=== PATIENT | male | born 1950 | race Caucasian/White ===

== ENCOUNTER 2018-07-13 19:42 | Inpatient (IN) | payer MEDICARE, MEDICAID, OTHER ==
[~2018-07-13] VITALS: Ht 175.3 cm; Wt 130.2 kg
[~2018-07-13 19:42] MED LIST: ALFUZOSIN PO; ASCO500C6 PO; CARV25TA47 PO; DIPH1TAB PO; ECON15CR11 TP; ETOMIDATE 2MG/ML 10ML VIAL IV ONE; FURO40TA5 PO; HYDR-4005 PO; METF500T PO; PIOG15TA6 PO; POTA20TA12 PO; SIMV5TAB53 PO; SUCCINYLCHOLINE CHLORIDE 200MG/10ML VIAL IV ONE; TRAZ-213 PO; VALS320T2 PO; VENL-180 PO; VITAMIN E PO
[2018-07-13] MEDS ORDERED: NITROGLYCERIN OINT 1GM/INCH UDPKT TD ONE (20:15)
[2018-07-13] MEDS ORDERED: ENALAPRIL 1.25MG/ML VIAL 1ML IV ONE (20:15)
[2018-07-13] MEDS ORDERED: ENALAPRIL 2.5MG/2ML VIAL 2ML IV NR (20:21)
[2018-07-13] MEDS ORDERED: ONDANSETRON HCL 4MG/2ML INJ IV ONE (20:30)
[2018-07-13 21:11] LABS: HEMATOCRIT. 31.9 % (42.0-52.0); HEMOGLOBIN. 10.3 g/dL (14.0-18.0); MEAN CORPUSCULAR HEMOGLOBIN 27.3 pg (28.0-32.0); MEAN CORPUSCULAR VOLUME 84.5 fL (80.0-94.0); MEAN PLATELET VOLUME 7.5 fl (7.4-10.4); PLATELET 529 x1000/uL (130-400); RED BLOOD CELL COUNT 3.77 mill/uL (4.7-6.1); RED CELL DISTRIBUTION WIDTH 14.1 % (11.6-14.6)
[2018-07-13 21:19] LABS: CHLORIDE 102 mEq/L (98-107)
[2018-07-13 21:20] LABS: INR 1.1; PROTHROMBIN TIME 11.3 sec (9.1-11.1)
[2018-07-13 21:33] LABS: PLATELET ESTIMATE INCREASED
[2018-07-13 22:46] LABS: BG BASE EXCESS -1.1 mmol/L (-2.0-2.0); BG CARBOXYHEMOGLOBIN 0.4 % (0.5-1.5); BG DEOXYHEMOGLOBIN 5.4 % (0.0-5.0); BG FRACTION INSPIRED OXYGEN 100; BG METHEMOGLOBIN 0.2 % (0.0-1.5); BG OXYGEN SATURATION 94.6 % (92.0-98.5); BG PH 7.293 (7.350-7.450); BG PO2 81.1 mmHg (75.0-100.0); BG SAMPLE SITE RIGHT RADIAL; BG TOTAL HEMOGLOBIN 11.1 g/dL (12.0-18.0); BG VENT MODE MASK - NRB
[2018-07-13] MEDS ORDERED: PIPERACILLIN/TAZ 3.375G PREMIX 50 ML IV ONE (23:00)
[2018-07-13] MEDS ORDERED: LEVOFLOXACIN 750MG PREMIX 150 ML IV ONE (23:00)
[2018-07-13] MEDS ORDERED: SUCCINYLCHOLINE CHLORIDE 200MG/10ML VIAL IV ONE (23:30)
[2018-07-13] MEDS ORDERED: ETOMIDATE 2MG/ML 10ML VIAL IV ONE (23:30)
[2018-07-13] MEDS ORDERED: PROPOFOL 10MG/ML 100ML 100 ML IV ONE ×2 (23:30→23:36)
[2018-07-13] MEDS ORDERED: SODIUM CHLORIDE 0.9% 1,000 ML IV ONE (23:48)
[2018-07-14] VITALS (91 sets, daily range): BP systolic 79–143; BP diastolic 40–80
[2018-07-14 00:17] LABS: BG BASE EXCESS -2.6 mmol/L (-2.0-2.0); BG CARBOXYHEMOGLOBIN 0.1 % (0.5-1.5); BG DEOXYHEMOGLOBIN 6.4 % (0.0-5.0); BG FRACTION INSPIRED OXYGEN 100; BG HCO3 ACT 24.2 mmol/L (22.0-26.0); BG METHEMOGLOBIN 0.2 % (0.0-1.5); BG OXYGEN SATURATION 93.6 % (92.0-98.5); BG OXYHEMOGLOBIN 93.3 % (94.0-97.0); BG PCO2 51.3 mmHg (35.0-45.0); BG PH 7.291 (7.350-7.450); BG PO2 74.2 mmHg (75.0-100.0); BG SAMPLE SITE RIGHT RADIAL; BG TIDAL VOLUME(mL) 500 mL; BG TOTAL HEMOGLOBIN 10.2 g/dL (12.0-18.0); BG VENT MODE VENT - A/C; BG VENT RATE 18 set
[2018-07-14] MEDS ORDERED: LORAZEPAM 2MG/ML CPJ ONE (00:20)
[2018-07-14] MEDS ORDERED: NOREPINEPHRINE 4 MG in DEXT 5% WATER 250 ML IV STA (00:49)
[2018-07-14] MEDS ORDERED: FENTANYL CITRATE/PF 500 MCG in SODIUM CHLORIDE 0.9% 40 ML IV STA (00:50)
[2018-07-14] MEDS ORDERED: MIDAZOLAM HCL 50 MG in DEXTROSE 5% WATER 40 ML IV ONE (01:00)
[2018-07-14] MEDS ORDERED: NOREPINEPHRINE 4 MG in DEXT 5% WATER 250 ML IV SCH (01:00)
[2018-07-14] MEDS ORDERED: FENTANYL CITRATE/PF 50MCG/ML 2ML VIAL IV ONE (01:00)
[2018-07-14] MEDS ORDERED: LORAZEPAM 2MG/ML CPJ IV ONE (01:30)
[2018-07-14] MEDS ORDERED: SODIUM CHLORIDE 0.9% 1,000 ML IV ONE (01:42)
[2018-07-14] MEDS ORDERED: DEXTROSE 50% WATER 50ML SYRINGE IV PRN (03:00)
[2018-07-14] MEDS ORDERED: CLONIDINE 0.1MG TABLET PO PRN (03:00)
[2018-07-14] MEDS ORDERED: IPRATROPIUM/ALBUTEROL 0.5-3(2.5)MG/3ML NEB HHN PRN (03:00)
[2018-07-14] MEDS ORDERED: DOCUSATE SODIUM 100MG CAPSULE PO PRN (03:00)
[2018-07-14] MEDS ORDERED: PHENYLEPHRINE 20 MG in DEXT 5% WATER 250 ML IV PRN (03:00)
[2018-07-14] MEDS ORDERED: ENOXAPARIN 40MG/0.4ML SYR SUBCUT SCH (03:00)
[2018-07-14] MEDS: IPRATROPIUM/ALBUTEROL 0.5-3(2.5)MG/3ML NEB HHN SCH ×5 (03:44→20:15)
[2018-07-14] MEDS: PROPOFOL 10MG/ML 100ML 100 ML IV PRN ×4 (03:52→21:06)
[2018-07-14] MEDS: DEXT 5%/0.45% NACL 1000ML 1,000 ML IV SCH (03:52)
[2018-07-14] MEDS ORDERED: VANCOMYCIN 2,000 MG in DEXT 5% WATER 500 ML IV SCH (04:00)
[2018-07-14] MEDS: NOREPINEPHRINE 8 MG in DEXT 5% WATER 242 ML IV PRN (05:23)
[2018-07-14] MEDS ORDERED: PIPERACILLIN/TAZ 3.375G PREMIX 50 ML IV SCH (06:00)
[2018-07-14 06:04] LABS: HEMATOCRIT. 29.1 % (42.0-52.0); HEMOGLOBIN. 9.4 g/dL (14.0-18.0); MEAN CORPUSCULAR HEMOGLOBIN 27.5 pg (28.0-32.0); MEAN CORPUSCULAR VOLUME 85.3 fL (80.0-94.0); MEAN PLATELET VOLUME 7.2 fl (7.4-10.4); PLATELET 471 x1000/uL (130-400); RED BLOOD CELL COUNT 3.41 mill/uL (4.7-6.1); RED CELL DISTRIBUTION WIDTH 13.9 % (11.6-14.6)
[2018-07-14 06:16] LABS: CHLORIDE 105 mEq/L (98-107)
[2018-07-14] MEDS: BLOOD SUGAR DIAGNOSTIC STRIP TEST SCH ×3 (06:39→17:45)
[2018-07-14] MEDS: INSULIN LISPRO 100 UNITS/ML SUBCUT SCH ×3 (06:41→17:45)
[2018-07-14 08:00] LABS: PLATELET ESTIMATE SLIGHTLY INCREASED
[2018-07-14] MEDS ORDERED: ENOXAPARIN 30MG/0.3ML SYR SUBCUT SCH (09:00)
[2018-07-14] MEDS: ACETAMINOPHEN 325MG TABLET PO PRN ×2 (09:09→17:53)
[2018-07-14 09:27] LABS: BG BASE EXCESS -0.5 mmol/L (-2.0-2.0); BG CARBOXYHEMOGLOBIN 0.2 % (0.5-1.5); BG DEOXYHEMOGLOBIN 4.8 % (0.0-5.0); BG FRACTION INSPIRED OXYGEN 100; BG METHEMOGLOBIN 0.3 % (0.0-1.5); BG OXYGEN SATURATION 95.2 % (92.0-98.5); BG OXYHEMOGLOBIN 94.7 % (94.0-97.0); BG PCO2 32.9 mmHg (35.0-45.0); BG PH 7.462 (7.350-7.450); BG SAMPLE SITE RIGHT RADIAL; BG TIDAL VOLUME(mL) 550 mL; BG TOTAL HEMOGLOBIN 8.9 g/dL (12.0-18.0); BG VENT MODE VENT - A/C; BG VENT RATE 24 set
[2018-07-14] MEDS: PIPERACILLIN/TAZ 3.375G PREMIX 50 ML IV SCH ×2 (14:00→17:53)
[2018-07-14] MEDS ORDERED: HYDROCODONE/APAP 7.5/325MG 1 TAB TABLET PO PRN (18:00)
[2018-07-14] MEDS ORDERED: VANCOMYCIN 1 G PREMIX 200 ML IV SCH (18:00)
[2018-07-15] VITALS (123 sets, daily range): BP systolic 44–143; BP diastolic 20–85
[2018-07-15] MEDS ORDERED: VANCOMYCIN 1250MG in DEXTROSE 5% WATER 250ML IV SCH ×2
[2018-07-15] MEDS: BLOOD SUGAR DIAGNOSTIC STRIP TEST SCH ×5 (00:21→23:28)
[2018-07-15] MEDS: PROPOFOL 10MG/ML 100ML 100 ML IV PRN ×6 (00:21→23:50)
[2018-07-15] MEDS: PIPERACILLIN/TAZ 3.375G PREMIX 50 ML IV SCH ×5 (00:21→23:32)
[2018-07-15] MEDS: DEXT 5%/0.45% NACL 1000ML 1,000 ML IV SCH ×2 (00:22→18:03)
[2018-07-15] MEDS: IPRATROPIUM/ALBUTEROL 0.5-3(2.5)MG/3ML NEB HHN SCH ×6 (00:23→20:07)
[2018-07-15] MEDS: INSULIN LISPRO 100 UNITS/ML SUBCUT SCH ×5 (00:37→23:49)
[2018-07-15 06:09] LABS: HEMATOCRIT. 25.6 % (42.0-52.0); HEMOGLOBIN. 8.5 g/dL (14.0-18.0); MEAN CORPUSCULAR HEMOGLOBIN 27.6 pg (28.0-32.0); MEAN CORPUSCULAR VOLUME 82.8 fL (80.0-94.0); PLATELET 445 x1000/uL (130-400); RED BLOOD CELL COUNT 3.09 mill/uL (4.7-6.1); RED CELL DISTRIBUTION WIDTH 13.9 % (11.6-14.6)
[2018-07-15 06:17] LABS: CHLORIDE 104 mEq/L (98-107)
[2018-07-15 06:47] LABS: LDL CHOLESTEROL 51 mg/dL (5-100)
[2018-07-15 06:48] LABS: HDL CHOLESTEROL 30 mg/dL (40-59)
[2018-07-15 07:23] LABS: INR 1.1; PARTIAL THROMBOPLASTIN TIME 46.5 sec (23.4-31.0); PROTHROMBIN TIME 10.6 sec (9.1-11.1)
[2018-07-15 08:24] LABS: BG BASE EXCESS 1.2 mmol/L (-2.0-2.0); BG CARBOXYHEMOGLOBIN 0.3 % (0.5-1.5); BG DEOXYHEMOGLOBIN 4.9 % (0.0-5.0); BG FRACTION INSPIRED OXYGEN 100; BG HCO3 ACT 25.3 mmol/L (22.0-26.0); BG METHEMOGLOBIN 0.3 % (0.0-1.5); BG OXYGEN SATURATION 95.1 % (92.0-98.5); BG OXYHEMOGLOBIN 94.5 % (94.0-97.0); BG PCO2 38.3 mmHg (35.0-45.0); BG PH 7.438 (7.350-7.450); BG PO2 76.6 mmHg (75.0-100.0); BG SAMPLE SITE RIGHT RADIAL; BG TIDAL VOLUME(mL) 550 mL; BG VENT MODE VENT - A/C; BG VENT RATE 20 set
[2018-07-15] MEDS ORDERED: SODIUM BICARBONATE 4% (2.4MEQ) 5ML VIAL IV ONE (08:45)
[2018-07-15] MEDS: PANTOPRAZOLE SODIUM 40 MG/VIAL IV SCH (10:19)
[2018-07-15 10:27] LABS: PLATELET ESTIMATE SLIGHTLY INCREASED
[2018-07-15] MEDS: NOREPINEPHRINE 8 MG in DEXT 5% WATER 242 ML IV PRN (13:18)
[2018-07-15] MEDS ORDERED: VANCOMYCIN 1500MG in DEXTROSE 5% WATER 250ML IV SCH (18:00)
[2018-07-16] VITALS (94 sets, daily range): BP systolic 81–146; BP diastolic 47–81
[2018-07-16] MEDS: IPRATROPIUM/ALBUTEROL 0.5-3(2.5)MG/3ML NEB HHN SCH ×6 (00:14→20:12)
[2018-07-16] MEDS: PROPOFOL 10MG/ML 100ML 100 ML IV PRN ×7 (03:21→22:43)
[2018-07-16] MEDS: DEXT 5%/0.45% NACL 1000ML 1,000 ML IV SCH ×2 (04:48→20:39)
[2018-07-16 04:58] LABS: BASOPHILS % 0.7 % (0.0-2.0); HEMATOCRIT. 22.9 % (42.0-52.0); HEMOGLOBIN. 7.7 g/dL (14.0-18.0); MEAN CORPUSCULAR HEMOGLOBIN 28.4 pg (28.0-32.0); MEAN CORPUSCULAR VOLUME 84.9 fL (80.0-94.0); MEAN PLATELET VOLUME 7.2 fl (7.4-10.4); MONOCYTES % 9.9 % (2.0-8.0); NEUTROPHILS % 79.4 % (40.0-76.0); PLATELET 406 x1000/uL (130-400); RED CELL DISTRIBUTION WIDTH 14.1 % (11.6-14.6)
[2018-07-16 05:02] LABS: CHLORIDE 101 mEq/L (98-107)
[2018-07-16 05:11] LABS: PHOSPHORUS 2.8 mg/dL (2.5-4.9)
[2018-07-16] MEDS: NOREPINEPHRINE 8 MG in DEXT 5% WATER 242 ML IV PRN ×2 (05:15→20:10)
[2018-07-16] MEDS: PIPERACILLIN/TAZ 3.375G PREMIX 50 ML IV SCH ×3 (06:05→17:08)
[2018-07-16] MEDS: BLOOD SUGAR DIAGNOSTIC STRIP TEST SCH ×3 (06:26→17:08)
[2018-07-16] MEDS: INSULIN LISPRO 100 UNITS/ML SUBCUT SCH ×3 (06:31→17:09)
[2018-07-16 08:11] LABS: BG BASE EXCESS 0.7 mmol/L (-2.0-2.0); BG CARBOXYHEMOGLOBIN 0.3 % (0.5-1.5); BG DEOXYHEMOGLOBIN 5.4 % (0.0-5.0); BG FRACTION INSPIRED OXYGEN 100; BG HCO3 ACT 24.7 mmol/L (22.0-26.0); BG METHEMOGLOBIN 0.1 % (0.0-1.5); BG OXYGEN SATURATION 94.6 % (92.0-98.5); BG OXYHEMOGLOBIN 94.2 % (94.0-97.0); BG PEEP (cmH2O) 7.5 cmH2O; BG PH 7.443 (7.350-7.450); BG PO2 73.7 mmHg (75.0-100.0); BG SAMPLE SITE RIGHT RADIAL; BG TIDAL VOLUME(mL) 550 mL; BG TOTAL HEMOGLOBIN 9.7 g/dL (12.0-18.0); BG VENT MODE VENT - A/C; BG VENT RATE 20 set
[2018-07-16] MEDS: PANTOPRAZOLE SODIUM 40 MG/VIAL IV SCH (09:00)
[2018-07-16] MEDS: VANCOMYCIN 1250MG in DEXTROSE 5% WATER 250ML IV SCH ×2 (09:22→21:19)
[2018-07-16] MEDS ORDERED: KCL 20MEQ/100ML PREMIX 100 ML IV SCH (11:30)
[2018-07-17] VITALS (85 sets, daily range): BP systolic 48–146; BP diastolic 16–88
[2018-07-17] MEDS: IPRATROPIUM/ALBUTEROL 0.5-3(2.5)MG/3ML NEB HHN SCH ×6 (00:07→20:47)
[2018-07-17] MEDS: PIPERACILLIN/TAZ 3.375G PREMIX 50 ML IV SCH ×5 (00:55→23:22)
[2018-07-17] MEDS: PROPOFOL 10MG/ML 100ML 100 ML IV PRN ×2 (01:10→04:44)
[2018-07-17] MEDS: INSULIN LISPRO 100 UNITS/ML SUBCUT SCH ×6 (01:21→23:35)
[2018-07-17] MEDS: ACETAMINOPHEN 325MG TABLET PO PRN (04:03)
[2018-07-17] MEDS ORDERED: ACETAMINOPHEN 650MG SUPP PR PRN (05:15)
[2018-07-17] MEDS: BLOOD SUGAR DIAGNOSTIC STRIP TEST SCH ×5 (06:15→23:25)
[2018-07-17] MEDS: VANCOMYCIN 1250MG in DEXTROSE 5% WATER 250ML IV SCH (10:28)
[2018-07-17 10:41] LABS: HEMATOCRIT. 24.9 % (42.0-52.0); HEMOGLOBIN. 8.3 g/dL (14.0-18.0); MEAN CORPUSCULAR HEMOGLOBIN 27.5 pg (28.0-32.0); MEAN CORPUSCULAR VOLUME 82.8 fL (80.0-94.0); MEAN PLATELET VOLUME 7.1 fl (7.4-10.4); PLATELET 532 x1000/uL (130-400); RED BLOOD CELL COUNT 3.01 mill/uL (4.7-6.1); RED CELL DISTRIBUTION WIDTH 14.2 % (11.6-14.6)
[2018-07-17 10:46] LABS: CHLORIDE 98 mEq/L (98-107)
[2018-07-17 10:49] LABS: D-DIMER 4.1 mg/L FEU (<0.50); INR 1.1; PROTHROMBIN TIME 10.7 sec (9.1-11.1)
[2018-07-17] MEDS: PANTOPRAZOLE SODIUM 40 MG/VIAL IV SCH (11:15)
[2018-07-17] MEDS ORDERED: LACTULOSE 20G/30ML UDC PO NR (11:15)
[2018-07-17 12:12] LABS: BG BASE EXCESS -7.9 mmol/L (-2.0-2.0); BG CARBOXYHEMOGLOBIN 0.3 % (0.5-1.5); BG DEOXYHEMOGLOBIN 2.7 % (0.0-5.0); BG FRACTION INSPIRED OXYGEN 90; BG HCO3 ACT 16.7 mmol/L (22.0-26.0); BG METHEMOGLOBIN 0.3 % (0.0-1.5); BG OXYGEN SATURATION 97.3 % (92.0-98.5); BG OXYHEMOGLOBIN 96.7 % (94.0-97.0); BG PCO2 30.6 mmHg (35.0-45.0); BG PH 7.354 (7.350-7.450); BG PO2 106.5 mmHg (75.0-100.0); BG SAMPLE SITE RIGHT RADIAL; BG TIDAL VOLUME(mL) 550 mL; BG TOTAL HEMOGLOBIN 9.7 g/dL (12.0-18.0); BG VENT MODE VENT - A/C; BG VENT RATE 18 set
[2018-07-17] MEDS: PHENYLEPHRINE 20 MG in DEXT 5% WATER 248 ML IV PRN (12:20)
[2018-07-17 13:34] LABS: PLATELET ESTIMATE INCREASED
[2018-07-17] MEDS ORDERED: SODIUM CHLORIDE 0.9% 1000ML BAG (SEPSIS BOLUS) IV ONE (14:00)
[2018-07-17] MEDS ORDERED: ALBUMIN HUMAN 12.5G/250ML (5%) IV NR (14:00)
[2018-07-17] MEDS ORDERED: SODIUM CHLORIDE 0.9% 500 ML IV ONE (14:06)
[2018-07-17] MEDS: DEXT 5%/0.45% NACL 1000ML 1,000 ML IV SCH (14:07)
[2018-07-17] MEDS: VASOPRESSIN 10 UNIT in SODIUM CHLORIDE 0.9% 99.5 ML IV PRN (14:40)
[2018-07-17] MEDS: FENTANYL CITRATE/PF 500 MCG in SODIUM CHLORIDE 0.9% 40 ML IV PRN ×2 (21:56→23:25)
[2018-07-17] MEDS: NOREPINEPHRINE 8 MG in DEXT 5% WATER 242 ML IV PRN (23:23)
[2018-07-18] VITALS (88 sets, daily range): BP systolic 69–135; BP diastolic 32–83
[2018-07-18] MEDS: IPRATROPIUM/ALBUTEROL 0.5-3(2.5)MG/3ML NEB HHN SCH ×6 (00:36→21:09)
[2018-07-18] MEDS: VASOPRESSIN 10 UNIT in SODIUM CHLORIDE 0.9% 99.5 ML IV PRN (04:37)
[2018-07-18] MEDS: FENTANYL CITRATE/PF 500 MCG in SODIUM CHLORIDE 0.9% 40 ML IV PRN ×3 (04:39→22:28)
[2018-07-18] MEDS: DEXT 5%/0.45% NACL 1000ML 1,000 ML IV SCH (04:40)
[2018-07-18] MEDS: PIPERACILLIN/TAZ 3.375G PREMIX 50 ML IV SCH (05:26)
[2018-07-18] MEDS: BLOOD SUGAR DIAGNOSTIC STRIP TEST SCH ×4 (05:35→23:08)
[2018-07-18] MEDS: INSULIN LISPRO 100 UNITS/ML SUBCUT SCH ×4 (05:36→23:12)
[2018-07-18 08:12] LABS: BG BASE EXCESS -5.8 mmol/L (-2.0-2.0); BG CARBOXYHEMOGLOBIN 0.2 % (0.5-1.5); BG DEOXYHEMOGLOBIN 2.2 % (0.0-5.0); BG HCO3 ACT 20.3 mmol/L (22.0-26.0); BG METHEMOGLOBIN 0.1 % (0.0-1.5); BG OXYGEN SATURATION 97.8 % (92.0-98.5); BG OXYHEMOGLOBIN 97.5 % (94.0-97.0); BG PCO2 42.4 mmHg (35.0-45.0); BG PH 7.298 (7.350-7.450); BG PO2 124.6 mmHg (75.0-100.0); BG SAMPLE SITE RIGHT RADIAL; BG TIDAL VOLUME(mL) 550 mL; BG TOTAL HEMOGLOBIN 9.8 g/dL (12.0-18.0); BG VENT MODE VENT - A/C; BG VENT RATE 18 set
[2018-07-18] MEDS ORDERED: SODIUM BICARBONATE 4% (2.4MEQ) 5ML VIAL IV ONE (10:33)
[2018-07-18] MEDS ORDERED: LIDOCAINE HCL/PF 1% 10 MG/ML 30ML VIAL ONE (10:46)
[2018-07-18] MEDS ORDERED: METRONIDAZOLE 500 MG PREMIX 100 ML IV SCH (12:00)
[2018-07-18] MEDS ORDERED: LIDOCAINE HCL/PF 1% 2ML VIAL ONE (12:55)
[2018-07-18] MEDS: CITRIC ACID/SODIUM CITRATE SOLN 30ML UDC NG SCH ×2 (13:32→16:35)
[2018-07-18] MEDS: PANTOPRAZOLE SODIUM 40 MG/VIAL IV SCH (13:32)
[2018-07-18] MEDS: MEROPENEM 1,000 MG in SODIUM CHLORIDE 0.9% 100 ML IV SCH ×2 (13:32→23:11)
[2018-07-18] MEDS: NOREPINEPHRINE 8 MG in DEXT 5% WATER 242 ML IV PRN (16:28)
[2018-07-19] VITALS (95 sets, daily range): BP systolic 80–141; BP diastolic 43–90
[2018-07-19] MEDS: IPRATROPIUM/ALBUTEROL 0.5-3(2.5)MG/3ML NEB HHN SCH ×6 (00:12→20:12)
[2018-07-19] MEDS ORDERED: LORAZEPAM 2MG/ML CPJ IV PRN (00:30)
[2018-07-19] MEDS: MIDAZOLAM HCL 50 MG in DEXTROSE 5% WATER 40 ML IV PRN ×2 (02:44→18:22)
[2018-07-19] MEDS: NOREPINEPHRINE 8 MG in DEXT 5% WATER 242 ML IV PRN ×3 (02:56→12:52)
[2018-07-19] MEDS: FENTANYL CITRATE/PF 500 MCG in SODIUM CHLORIDE 0.9% 40 ML IV PRN ×3 (04:25→18:23)
[2018-07-19] MEDS: INSULIN LISPRO 100 UNITS/ML SUBCUT SCH ×4 (05:18→23:52)
[2018-07-19] MEDS: BLOOD SUGAR DIAGNOSTIC STRIP TEST SCH ×4 (05:18→23:46)
[2018-07-19 06:07] LABS: HEMATOCRIT. 25.1 % (42.0-52.0); HEMOGLOBIN. 8.4 g/dL (14.0-18.0); MEAN CORPUSCULAR HEMOGLOBIN 27.8 pg (28.0-32.0); MEAN CORPUSCULAR VOLUME 83.1 fL (80.0-94.0); MEAN PLATELET VOLUME 7.5 fl (7.4-10.4); PLATELET 443 x1000/uL (130-400); RED BLOOD CELL COUNT 3.02 mill/uL (4.7-6.1); RED CELL DISTRIBUTION WIDTH 14.2 % (11.6-14.6)
[2018-07-19 09:05] LABS: CHLORIDE 97 mEq/L (98-107)
[2018-07-19 09:16] LABS: CREATINE KINASE 208 IU/L (39-308); T4 FREE 1.36 ng/dL (0.76-1.46)
[2018-07-19] MEDS: CITRIC ACID/SODIUM CITRATE SOLN 30ML UDC NG SCH ×3 (09:21→18:25)
[2018-07-19] MEDS: PANTOPRAZOLE SODIUM 40 MG/VIAL IV SCH (09:21)
[2018-07-19] MEDS ORDERED: LIDOCAINE HCL 1% 10 MG/ML 10ML VIAL ONE (10:58)
[2018-07-19] MEDS: MEROPENEM 1,000 MG in SODIUM CHLORIDE 0.9% 100 ML IV SCH ×2 (12:24→23:51)
[2018-07-19 12:38] LABS: BG BASE EXCESS -5.4 mmol/L (-2.0-2.0); BG CARBOXYHEMOGLOBIN 0.3 % (0.5-1.5); BG DEOXYHEMOGLOBIN 7.9 % (0.0-5.0); BG FRACTION INSPIRED OXYGEN 50; BG HCO3 ACT 20.7 mmol/L (22.0-26.0); BG METHEMOGLOBIN 0.4 % (0.0-1.5); BG OXYHEMOGLOBIN 91.4 % (94.0-97.0); BG PCO2 43.3 mmHg (35.0-45.0); BG PH 7.298 (7.350-7.450); BG PO2 73.9 mmHg (75.0-100.0); BG SAMPLE SITE RIGHT RADIAL; BG TIDAL VOLUME(mL) 550 mL; BG TOTAL HEMOGLOBIN 8.8 g/dL (12.0-18.0); BG VENT MODE VENT - A/C; BG VENT RATE 18 set
[2018-07-19] MEDS: PHENYLEPHRINE 20 MG in DEXT 5% WATER 248 ML IV PRN (12:51)
[2018-07-19 13:47] LABS: CLARITY URINE TURBID (CLEAR); COLOR URINE DARK YELLOW (YELLOW); KETONES URINE NEGATIVE (NEGATIVE); LEUKOCYTE ESTERASE URINE NEGATIVE (NEGATIVE); NITRITE URINE NEGATIVE (NEGATIVE); OCCULT BLOOD URINE 2+ (NEGATIVE); PROTEIN URINE 1+ (NEGATIVE); SPECIFIC GRAVITY URINE 1.016 (1.005-1.030)
[2018-07-19 15:02] LABS: PLATELET ESTIMATE SLIGHTLY INCREASED
[2018-07-19] MEDS: METOCLOPRAMIDE HCL 10MG/2ML VIAL IV SCH ×3 (15:17→23:51)
[2018-07-19] MEDS: PHENYLEPHRINE 80 MG in DEXT 5% WATER 492 ML IV PRN (15:17)
[2018-07-19] MEDS: ENOXAPARIN 40MG/0.4ML SYR SUBCUT SCH (15:17)
[2018-07-19] MEDS: NOREPINEPHRINE 16 MG in DEXT 5% WATER 484 ML IV PRN (18:24)
[2018-07-19] MEDS: MIDODRINE HCL 5MG TABLET PO SCH (18:27)
[2018-07-20] VITALS (97 sets, daily range): BP systolic 85–155; BP diastolic 34–78
[2018-07-20] MEDS: IPRATROPIUM/ALBUTEROL 0.5-3(2.5)MG/3ML NEB HHN SCH ×7 (00:03→23:36)
[2018-07-20] MEDS: FENTANYL CITRATE/PF 500 MCG in SODIUM CHLORIDE 0.9% 40 ML IV PRN ×3 (04:31→16:33)
[2018-07-20] MEDS: PHENYLEPHRINE 80 MG in DEXT 5% WATER 492 ML IV PRN ×2 (04:31→22:50)
[2018-07-20] MEDS: BLOOD SUGAR DIAGNOSTIC STRIP TEST SCH ×3 (05:28→18:24)
[2018-07-20] MEDS: INSULIN LISPRO 100 UNITS/ML SUBCUT SCH ×3 (05:28→18:25)
[2018-07-20] MEDS: METOCLOPRAMIDE HCL 10MG/2ML VIAL IV SCH ×2 (05:28→12:00)
[2018-07-20 06:38] LABS: HEMATOCRIT. 24.9 % (42.0-52.0); HEMOGLOBIN. 8.4 g/dL (14.0-18.0); MEAN CORPUSCULAR HEMOGLOBIN 27.6 pg (28.0-32.0); MEAN CORPUSCULAR VOLUME 82.1 fL (80.0-94.0); MEAN PLATELET VOLUME 7.7 fl (7.4-10.4); PLATELET 454 x1000/uL (130-400); RED BLOOD CELL COUNT 3.04 mill/uL (4.7-6.1); RED CELL DISTRIBUTION WIDTH 14.8 % (11.6-14.6)
[2018-07-20] MEDS: MIDAZOLAM HCL 50 MG in DEXTROSE 5% WATER 40 ML IV PRN (07:26)
[2018-07-20] MEDS: NOREPINEPHRINE 16 MG in DEXT 5% WATER 484 ML IV PRN (07:27)
[2018-07-20] MEDS ORDERED: ALBUMIN HUMAN 25GM/100ML (25%) IV SCH (08:15)
[2018-07-20 08:21] LABS: NUCLEATED RED BLOOD CELLS 2 /100 WBC; PLATELET ESTIMATE INCREASED
[2018-07-20 08:25] LABS: BG BASE EXCESS -1.3 mmol/L (-2.0-2.0); BG CARBOXYHEMOGLOBIN 0.6 % (0.5-1.5); BG HCO3 ACT 24.2 mmol/L (22.0-26.0); BG METHEMOGLOBIN 0.2 % (0.0-1.5); BG OXYGEN SATURATION 92.9 % (92.0-98.5); BG OXYHEMOGLOBIN 92.2 % (94.0-97.0); BG PCO2 44.1 mmHg (35.0-45.0); BG PH 7.357 (7.350-7.450); BG PO2 71.4 mmHg (75.0-100.0); BG SAMPLE SITE RIGHT BRACHIAL; BG TIDAL VOLUME(mL) 550 mL; BG TOTAL HEMOGLOBIN 8.7 g/dL (12.0-18.0); BG VENT MODE VENT - A/C; BG VENT RATE 20 set
[2018-07-20] MEDS: PANTOPRAZOLE SODIUM 40 MG/VIAL IV SCH (09:32)
[2018-07-20] MEDS: MIDODRINE HCL 5MG TABLET PO SCH ×3 (09:32→16:31)
[2018-07-20] MEDS ORDERED: HEPARIN SODIUM 1,000 UNIT/1ML VIAL IV SCH (11:45)
[2018-07-20 12:48] LABS: HEPATITIS B SURFACE ANTIGEN NEGATIVE
[2018-07-20 13:05] LABS: AMMONIA 30 uMol/L (<32)
[2018-07-20 13:16] LABS: HEPATITIS B CORE AB IGM NEGATIVE
[2018-07-20 13:17] LABS: HEPATITIS A AB IGM NEGATIVE (NEGATIVE)
[2018-07-20] MEDS: MEROPENEM 1,000 MG in SODIUM CHLORIDE 0.9% 100 ML IV SCH ×2 (13:36→22:57)
[2018-07-20] MEDS: ENOXAPARIN 40MG/0.4ML SYR SUBCUT SCH (16:31)
[2018-07-21] VITALS (97 sets, daily range): BP systolic 78–141; BP diastolic 46–83
[2018-07-21] MEDS: BLOOD SUGAR DIAGNOSTIC STRIP TEST SCH ×4 (00:33→17:09)
[2018-07-21] MEDS: INSULIN LISPRO 100 UNITS/ML SUBCUT SCH ×4 (00:40→17:16)
[2018-07-21] MEDS: MIDAZOLAM HCL 50 MG in DEXTROSE 5% WATER 40 ML IV PRN (02:52)
[2018-07-21] MEDS: FENTANYL CITRATE/PF 500 MCG in SODIUM CHLORIDE 0.9% 40 ML IV PRN (02:55)
[2018-07-21] MEDS: NOREPINEPHRINE 16 MG in DEXT 5% WATER 484 ML IV PRN (03:31)
[2018-07-21] MEDS: IPRATROPIUM/ALBUTEROL 0.5-3(2.5)MG/3ML NEB HHN SCH ×5 (04:08→20:12)
[2018-07-21 05:39] LABS: HEMATOCRIT. 26.9 % (42.0-52.0); HEMOGLOBIN. 8.8 g/dL (14.0-18.0); MEAN CORPUSCULAR HEMOGLOBIN 27.1 pg (28.0-32.0); MEAN CORPUSCULAR VOLUME 82.9 fL (80.0-94.0); MEAN PLATELET VOLUME 7.4 fl (7.4-10.4); PLATELET 428 x1000/uL (130-400); RED BLOOD CELL COUNT 3.24 mill/uL (4.7-6.1); RED CELL DISTRIBUTION WIDTH 14.3 % (11.6-14.6)
[2018-07-21 05:52] LABS: CHLORIDE 97 mEq/L (98-107)
[2018-07-21 06:05] LABS: PHOSPHORUS 3.6 mg/dL (2.5-4.9)
[2018-07-21 07:26] LABS: NUCLEATED RED BLOOD CELLS 1 /100 WBC; PLATELET ESTIMATE SLIGHTLY INCREASED
[2018-07-21] MEDS ORDERED: ALBUMIN HUMAN 25GM/100ML (25%) IV NR (08:00)
[2018-07-21] MEDS: PANTOPRAZOLE SODIUM 40 MG/VIAL IV SCH (08:23)
[2018-07-21] MEDS: MIDODRINE HCL 5MG TABLET PO SCH ×3 (08:24→17:15)
[2018-07-21] MEDS ORDERED: KCL 20MEQ/100ML PREMIX 100 ML IV NR (09:00)
[2018-07-21 09:16] LABS: BG BASE EXCESS 0.3 mmol/L (-2.0-2.0); BG DEOXYHEMOGLOBIN 4.8 % (0.0-5.0); BG FRACTION INSPIRED OXYGEN 60; BG HCO3 ACT 25.5 mmol/L (22.0-26.0); BG METHEMOGLOBIN 0.3 % (0.0-1.5); BG OXYGEN SATURATION 95.2 % (92.0-98.5); BG OXYHEMOGLOBIN 94.9 % (94.0-97.0); BG PCO2 43.6 mmHg (35.0-45.0); BG PH 7.385 (7.350-7.450); BG PO2 82.9 mmHg (75.0-100.0); BG SAMPLE SITE RIGHT BRACHIAL; BG TIDAL VOLUME(mL) 550 mL; BG TOTAL HEMOGLOBIN 9.1 g/dL (12.0-18.0); BG VENT MODE VENT - A/C; BG VENT RATE 20 set
[2018-07-21] MEDS: MEROPENEM 1,000 MG in SODIUM CHLORIDE 0.9% 100 ML IV SCH ×2 (11:47→22:04)
[2018-07-21] MEDS ORDERED: FENTANYL CITRATE/PF 500 MCG in SODIUM CHLORIDE 0.9% 40 ML IV PRN (11:52)
[2018-07-21] MEDS ORDERED: LORAZEPAM 2MG/ML CPJ IV PRN (12:00)
[2018-07-21] MEDS: ACETAMINOPHEN 325MG TABLET PO PRN (12:26)
[2018-07-21] MEDS: ENOXAPARIN 40MG/0.4ML SYR SUBCUT SCH (15:09)
[2018-07-21] MEDS: PHENYLEPHRINE 80 MG in DEXT 5% WATER 492 ML IV PRN (16:32)
[2018-07-22] VITALS (102 sets, daily range): BP systolic 82–169; BP diastolic 35–118
[2018-07-22] MEDS: IPRATROPIUM/ALBUTEROL 0.5-3(2.5)MG/3ML NEB HHN SCH ×6 (00:02→20:39)
[2018-07-22] MEDS: BLOOD SUGAR DIAGNOSTIC STRIP TEST SCH ×5 (00:52→23:04)
[2018-07-22] MEDS: INSULIN LISPRO 100 UNITS/ML SUBCUT SCH ×5 (00:56→23:06)
[2018-07-22 05:59] LABS: HEMATOCRIT. 23.3 % (42.0-52.0); HEMOGLOBIN. 7.8 g/dL (14.0-18.0); MEAN CORPUSCULAR HEMOGLOBIN 27.5 pg (28.0-32.0); MEAN CORPUSCULAR VOLUME 82.7 fL (80.0-94.0); MEAN PLATELET VOLUME 7.7 fl (7.4-10.4); PLATELET 356 x1000/uL (130-400); RED BLOOD CELL COUNT 2.82 mill/uL (4.7-6.1); RED CELL DISTRIBUTION WIDTH 14.4 % (11.6-14.6)
[2018-07-22 06:31] LABS: PHOSPHORUS 3.4 mg/dL (2.5-4.9)
[2018-07-22] MEDS ORDERED: KCL 20MEQ/100ML PREMIX 100 ML IV ONE (07:15)
[2018-07-22 08:24] LABS: NUCLEATED RED BLOOD CELLS 1 /100 WBC; PLATELET ESTIMATE NORMAL
[2018-07-22] MEDS ORDERED: POTASSIUM CHLORIDE INJ 40 MEQ in DEXT 5% WATER 250 ML IV NR (08:30)
[2018-07-22 08:42] LABS: BG BASE EXCESS -0.2 mmol/L (-2.0-2.0); BG DEOXYHEMOGLOBIN 2.9 % (0.0-5.0); BG HCO3 ACT 24.6 mmol/L (22.0-26.0); BG METHEMOGLOBIN 0.1 % (0.0-1.5); BG OXYGEN SATURATION 97.1 % (92.0-98.5); BG PCO2 40.5 mmHg (35.0-45.0); BG PH 7.401 (7.350-7.450); BG PO2 99.5 mmHg (75.0-100.0); BG SAMPLE SITE RIGHT BRACHIAL; BG TIDAL VOLUME(mL) 550 mL; BG VENT MODE VENT - A/C; BG VENT RATE 20 set
[2018-07-22] MEDS: MIDODRINE HCL 5MG TABLET PO SCH ×3 (08:49→16:46)
[2018-07-22] MEDS: PANTOPRAZOLE SODIUM 40 MG/VIAL IV SCH (08:49)
[2018-07-22] MEDS: PHENYLEPHRINE 80 MG in DEXT 5% WATER 492 ML IV PRN (10:48)
[2018-07-22] MEDS: MEROPENEM 1,000 MG in SODIUM CHLORIDE 0.9% 100 ML IV SCH ×2 (12:42→23:00)
[2018-07-22] MEDS: ENOXAPARIN 40MG/0.4ML SYR SUBCUT SCH (14:53)
[2018-07-22] MEDS ORDERED: MORPHINE SULFATE 2 MG/ML CPJ (NOT FOR IM USE) IV PRN (20:00)
[2018-07-23] VITALS (96 sets, daily range): BP systolic 80–219; BP diastolic 27–109
[2018-07-23] MEDS: IPRATROPIUM/ALBUTEROL 0.5-3(2.5)MG/3ML NEB HHN SCH ×7 (00:35→23:55)
[2018-07-23 05:29] LABS: HEMATOCRIT. 24.3 % (42.0-52.0); MEAN CORPUSCULAR HEMOGLOBIN 27.1 pg (28.0-32.0); MEAN CORPUSCULAR VOLUME 82.5 fL (80.0-94.0); MEAN PLATELET VOLUME 7.8 fl (7.4-10.4); PLATELET 353 x1000/uL (130-400); RED BLOOD CELL COUNT 2.95 mill/uL (4.7-6.1); RED CELL DISTRIBUTION WIDTH 14.9 % (11.6-14.6)
[2018-07-23 05:32] LABS: CHLORIDE 99 mEq/L (98-107)
[2018-07-23 05:42] LABS: PHOSPHORUS 2.6 mg/dL (2.5-4.9)
[2018-07-23] MEDS: BLOOD SUGAR DIAGNOSTIC STRIP TEST SCH ×4 (05:49→23:07)
[2018-07-23] MEDS: INSULIN LISPRO 100 UNITS/ML SUBCUT SCH ×4 (05:51→23:07)
[2018-07-23] MEDS ORDERED: ALBUMIN HUMAN 25GM/100ML (25%) IV PRN (08:00)
[2018-07-23] MEDS ORDERED: ALBUMIN HUMAN 25GM/100ML (25%) IV SCH (08:00)
[2018-07-23 08:46] LABS: BG CARBOXYHEMOGLOBIN 0.2 % (0.5-1.5); BG DEOXYHEMOGLOBIN 4.8 % (0.0-5.0); BG HCO3 ACT 23.7 mmol/L (22.0-26.0); BG METHEMOGLOBIN 0.3 % (0.0-1.5); BG OXYGEN SATURATION 95.2 % (92.0-98.5); BG OXYHEMOGLOBIN 94.7 % (94.0-97.0); BG PCO2 38.9 mmHg (35.0-45.0); BG PH 7.402 (7.350-7.450); BG PO2 79.8 mmHg (75.0-100.0); BG SAMPLE SITE RIGHT RADIAL; BG TIDAL VOLUME(mL) 550 mL; BG TOTAL HEMOGLOBIN 8.2 g/dL (12.0-18.0); BG VENT MODE VENT - A/C; BG VENT RATE 20 set
[2018-07-23 09:00] LABS: PLATELET ESTIMATE NORMAL
[2018-07-23] MEDS: PANTOPRAZOLE SODIUM 40 MG/VIAL IV SCH (09:50)
[2018-07-23] MEDS: MIDODRINE HCL 5MG TABLET PO SCH ×3 (09:51→17:10)
[2018-07-23] MEDS: MEROPENEM 1,000 MG in SODIUM CHLORIDE 0.9% 100 ML IV SCH (11:25)
[2018-07-23] MEDS: LORAZEPAM 2MG/ML CPJ IV PRN ×2 (13:11→22:59)
[2018-07-23] MEDS ORDERED: CEFTRIAXONE 2 G in DEXTROSE 5% WATER 50 ML IV SCH (13:30)
[2018-07-23] MEDS ORDERED: POTASSIUM CHLORIDE INJ 40 MEQ in DEXT 5% WATER 250 ML IV SCH (14:00)
[2018-07-23] MEDS: MORPHINE SULFATE 4 MG/ML CPJ (NOT FOR IM USE) IV PRN ×2 (14:05→20:20)
[2018-07-23] MEDS: METRONIDAZOLE 500MG TABLET PO SCH ×2 (14:06→22:59)
[2018-07-23] MEDS ORDERED: CEFTRIAXONE 2 G PREMIX 50 ML IV SCH (15:00)
[2018-07-23] MEDS: ENOXAPARIN 40MG/0.4ML SYR SUBCUT SCH (15:12)
[2018-07-23] MEDS: CEFTRIAXONE 2 G in DEXTROSE 5% WATER 50 ML IV SCH (15:12)
[2018-07-23] MEDS: ACETAMINOPHEN 325MG TABLET PO PRN (23:07)
[2018-07-24] VITALS (83 sets, daily range): BP systolic 76–170; BP diastolic 31–99
[2018-07-24] MEDS: PHENYLEPHRINE 80 MG in DEXT 5% WATER 492 ML IV PRN (00:53)
[2018-07-24] MEDS: MORPHINE SULFATE 4 MG/ML CPJ (NOT FOR IM USE) IV PRN ×3 (03:05→18:25)
[2018-07-24] MEDS: IPRATROPIUM/ALBUTEROL 0.5-3(2.5)MG/3ML NEB HHN SCH ×5 (04:09→20:12)
[2018-07-24] MEDS: LORAZEPAM 2MG/ML CPJ IV PRN ×3 (05:09→22:31)
[2018-07-24] MEDS: BLOOD SUGAR DIAGNOSTIC STRIP TEST SCH ×4 (05:14→23:24)
[2018-07-24] MEDS: INSULIN LISPRO 100 UNITS/ML SUBCUT SCH ×4 (05:14→23:28)
[2018-07-24 05:37] LABS: HEMATOCRIT. 23.7 % (42.0-52.0); HEMOGLOBIN. 7.6 g/dL (14.0-18.0); MEAN CORPUSCULAR HEMOGLOBIN 26.7 pg (28.0-32.0); MEAN CORPUSCULAR VOLUME 83.3 fL (80.0-94.0); MEAN PLATELET VOLUME 7.7 fl (7.4-10.4); PLATELET 333 x1000/uL (130-400); RED BLOOD CELL COUNT 2.84 mill/uL (4.7-6.1); RED CELL DISTRIBUTION WIDTH 15.3 % (11.6-14.6)
[2018-07-24 05:49] LABS: PHOSPHORUS 2.1 mg/dL (2.5-4.9)
[2018-07-24 07:43] LABS: BG BASE EXCESS 3.7 mmol/L (-2.0-2.0); BG DEOXYHEMOGLOBIN 7.3 % (0.0-5.0); BG FRACTION INSPIRED OXYGEN 40; BG HCO3 ACT 28.1 mmol/L (22.0-26.0); BG METHEMOGLOBIN 0.2 % (0.0-1.5); BG OXYGEN SATURATION 92.6 % (92.0-98.5); BG OXYHEMOGLOBIN 91.5 % (94.0-97.0); BG PCO2 41.9 mmHg (35.0-45.0); BG PH 7.444 (7.350-7.450); BG PO2 62.2 mmHg (75.0-100.0); BG SAMPLE SITE RIGHT RADIAL; BG TIDAL VOLUME(mL) 550 mL; BG TOTAL HEMOGLOBIN 7.4 g/dL (12.0-18.0); BG VENT MODE VENT - A/C; BG VENT RATE 20 set
[2018-07-24] MEDS: METRONIDAZOLE 500MG TABLET PO SCH ×2 (08:31→20:18)
[2018-07-24] MEDS: ACETAMINOPHEN 325MG TABLET PO PRN (08:31)
[2018-07-24] MEDS: PANTOPRAZOLE SODIUM 40 MG/VIAL IV SCH (08:32)
[2018-07-24] MEDS: MIDODRINE HCL 5MG TABLET PO SCH ×3 (08:33→17:00)
[2018-07-24] MEDS: ONDANSETRON HCL 4MG/2ML INJ IV PRN ×2 (08:42→18:22)
[2018-07-24] MEDS ORDERED: HEPARIN SODIUM 1,000 UNIT/1ML VIAL IV ONE (09:45)
[2018-07-24 10:38] LABS: PLATELET ESTIMATE NORMAL
[2018-07-24] MEDS ORDERED: ALBUMIN HUMAN 25GM/100ML (25%) IV NR (12:00)
[2018-07-24] MEDS ORDERED: HEPARIN SODIUM 1,000 UNIT/1ML VIAL IV NR (14:00)
[2018-07-24] MEDS: ENOXAPARIN 40MG/0.4ML SYR SUBCUT SCH (14:22)
[2018-07-24] MEDS: CEFTRIAXONE 2 G in DEXTROSE 5% WATER 50 ML IV SCH (14:37)
[2018-07-24] MEDS ORDERED: POTASSIUM PHOS,M-BASIC-D-BASIC 20 MMOL in DEXT 5% WATER 243.3333 ML IV NR (15:30)
[2018-07-24 20:37] LABS: AMMONIA 44 uMol/L (<32)
[2018-07-24 20:57] LABS: FOLIC ACID (FOLATE) SERUM >20 ng/mL ng/mL (>5.38)
[2018-07-24 20:58] LABS: FERRITIN 284 ng/mL (22-322)
[2018-07-24 21:08] LABS: VITAMIN B12 SERUM 897 pg/mL (211-911)
[2018-07-25] VITALS (83 sets, daily range): BP systolic 75–160; BP diastolic 26–109
[2018-07-25] MEDS: IPRATROPIUM/ALBUTEROL 0.5-3(2.5)MG/3ML NEB HHN SCH ×7 (00:05→23:47)
[2018-07-25] MEDS: MORPHINE SULFATE 4 MG/ML CPJ (NOT FOR IM USE) IV PRN ×3 (01:18→19:41)
[2018-07-25] MEDS: LORAZEPAM 2MG/ML CPJ IV PRN ×3 (02:20→21:20)
[2018-07-25 05:36] LABS: BASOPHILS % 1.3 % (0.0-2.0); HEMATOCRIT. 21.1 % (42.0-52.0); LYMPHOCYTES % 7.3 % (20.0-50.0); MEAN CORPUSCULAR HEMOGLOBIN 27.6 pg (28.0-32.0); MEAN CORPUSCULAR VOLUME 82.9 fL (80.0-94.0); MEAN PLATELET VOLUME 7.9 fl (7.4-10.4); MONOCYTES % 11.1 % (2.0-8.0); NEUTROPHILS % 70.3 % (40.0-76.0); PLATELET 293 x1000/uL (130-400); RED BLOOD CELL COUNT 2.54 mill/uL (4.7-6.1); RED CELL DISTRIBUTION WIDTH 15.2 % (11.6-14.6)
[2018-07-25 05:56] LABS: PHOSPHORUS 3.2 mg/dL (2.5-4.9)
[2018-07-25] MEDS: BLOOD SUGAR DIAGNOSTIC STRIP TEST SCH ×4 (06:00→23:43)
[2018-07-25] MEDS: INSULIN LISPRO 100 UNITS/ML SUBCUT SCH ×4 (06:01→23:44)
[2018-07-25] MEDS: PANTOPRAZOLE SODIUM 40 MG/VIAL IV SCH ×3 (08:40→20:13)
[2018-07-25] MEDS: METRONIDAZOLE 500MG TABLET PO SCH ×2 (08:40→20:13)
[2018-07-25] MEDS: MIDODRINE HCL 5MG TABLET PO SCH ×3 (08:41→17:00)
[2018-07-25 12:32] LABS: INR 1.1; PROTHROMBIN TIME 11.5 sec (9.1-11.1)
[2018-07-25] MEDS: CEFTRIAXONE 2 G in DEXTROSE 5% WATER 50 ML IV SCH (16:08)
[2018-07-26] VITALS (73 sets, daily range): BP systolic 89–165; BP diastolic 51–97
[2018-07-26] MEDS: MORPHINE SULFATE 4 MG/ML CPJ (NOT FOR IM USE) IV PRN ×6 (00:46→21:25)
[2018-07-26] MEDS: LORAZEPAM 2MG/ML CPJ IV PRN ×4 (01:51→22:28)
[2018-07-26] MEDS: IPRATROPIUM/ALBUTEROL 0.5-3(2.5)MG/3ML NEB HHN SCH ×5 (03:36→20:08)
[2018-07-26] MEDS: INSULIN LISPRO 100 UNITS/ML SUBCUT SCH ×3 (05:28→18:00)
[2018-07-26] MEDS: BLOOD SUGAR DIAGNOSTIC STRIP TEST SCH ×3 (05:28→18:00)
[2018-07-26 05:49] LABS: EOSINOPHILS % 9.1 % (0.0-5.0); HEMATOCRIT. 23.2 % (42.0-52.0); HEMOGLOBIN. 7.7 g/dL (14.0-18.0); MEAN CORPUSCULAR HEMOGLOBIN 26.6 pg (28.0-32.0); MEAN CORPUSCULAR VOLUME 80.3 fL (80.0-94.0); MEAN PLATELET VOLUME 8.3 fl (7.4-10.4); MONOCYTES % 11.3 % (2.0-8.0); NEUTROPHILS % 68.6 % (40.0-76.0); PLATELET 305 x1000/uL (130-400); RED BLOOD CELL COUNT 2.89 mill/uL (4.7-6.1); RED CELL DISTRIBUTION WIDTH 18.1 % (11.6-14.6)
[2018-07-26 05:54] LABS: INR 1.2
[2018-07-26 06:00] LABS: CHLORIDE 109 mEq/L (98-107)
[2018-07-26 06:06] LABS: PHOSPHORUS 2.9 mg/dL (2.5-4.9)
[2018-07-26 06:11] LABS: AMMONIA 61 uMol/L (<32)
[2018-07-26] MEDS: DEXT 5%/0.2% NACL 1,000 ML IV SCH (08:00)
[2018-07-26] MEDS ORDERED: POTASSIUM CHLORIDE INJ 40 MEQ in DEXT 5% WATER 250 ML IV SCH (08:00)
[2018-07-26] MEDS: PANTOPRAZOLE SODIUM 40 MG/VIAL IV SCH (08:22)
[2018-07-26] MEDS: MIDODRINE HCL 5MG TABLET PO SCH ×3 (09:00→17:00)
[2018-07-26] MEDS: METRONIDAZOLE 500MG TABLET PO SCH ×2 (09:00→20:44)
[2018-07-26] MEDS ORDERED: FENTANYL CITRATE/PF 50MCG/ML 2ML VIAL ONE ×2 (10:15→14:02)
[2018-07-26] MEDS ORDERED: MIDAZOLAM HCL 5 MG/5 ML VIAL ONE (10:15)
[2018-07-26] MEDS ORDERED: MIDAZOLAM HCL 2 MG/2 ML VIAL IV PRN (10:44)
[2018-07-26] MEDS ORDERED: FENTANYL CITRATE/PF 50MCG/ML 2ML VIAL IV PRN (10:45)
[2018-07-26] MEDS: CEFTRIAXONE 2 G in DEXTROSE 5% WATER 50 ML IV SCH (13:45)
[2018-07-26] MEDS ORDERED: ROCURONIUM BROMIDE 10MG/ML VIAL 5ML IV ONE ×2 (13:56→14:17)
[2018-07-26] MEDS ORDERED: BACTERIOSTATIC SODIUM CHLORIDE 0.9% 30ML VIAL IJ ONE (15:18)
[2018-07-27] VITALS (66 sets, daily range): BP systolic 79–153; BP diastolic 33–98
[2018-07-27] MEDS: BLOOD SUGAR DIAGNOSTIC STRIP TEST SCH ×4 (00:04→18:00)
[2018-07-27] MEDS: INSULIN LISPRO 100 UNITS/ML SUBCUT SCH ×4 (00:08→18:00)
[2018-07-27] MEDS: MORPHINE SULFATE 4 MG/ML CPJ (NOT FOR IM USE) IV PRN ×6 (00:09→17:42)
[2018-07-27] MEDS: IPRATROPIUM/ALBUTEROL 0.5-3(2.5)MG/3ML NEB HHN SCH ×6 (00:15→20:46)
[2018-07-27] MEDS: LORAZEPAM 2MG/ML CPJ IV PRN ×3 (01:59→21:49)
[2018-07-27] MEDS: ACETAMINOPHEN 325MG TABLET PO PRN ×2 (03:55→14:26)
[2018-07-27 04:59] LABS: BASOPHILS % 0.9 % (0.0-2.0); EOSINOPHILS % 9.6 % (0.0-5.0); HEMATOCRIT. 24.6 % (42.0-52.0); LYMPHOCYTES % 9.5 % (20.0-50.0); MEAN CORPUSCULAR HEMOGLOBIN 26.3 pg (28.0-32.0); MONOCYTES % 13.5 % (2.0-8.0); NEUTROPHILS % 66.5 % (40.0-76.0); PLATELET 366 x1000/uL (130-400); RED BLOOD CELL COUNT 3.04 mill/uL (4.7-6.1); RED CELL DISTRIBUTION WIDTH 18.4 % (11.6-14.6)
[2018-07-27 05:22] LABS: PHOSPHORUS 2.9 mg/dL (2.5-4.9)
[2018-07-27] MEDS: PHENYLEPHRINE 80 MG in DEXT 5% WATER 492 ML IV PRN (06:05)
[2018-07-27] MEDS: DEXT 5%/0.2% NACL 1,000 ML IV SCH (08:00)
[2018-07-27] MEDS ORDERED: MAGNESIUM 2 G PREMIX 50 ML IV NR (09:00)
[2018-07-27] MEDS ORDERED: MAGNESIUM 1 G PREMIX 100 ML IV ONE (09:18)
[2018-07-27] MEDS: METRONIDAZOLE 500MG TABLET PO SCH ×2 (09:20→21:52)
[2018-07-27] MEDS: MIDODRINE HCL 5MG TABLET PO SCH ×3 (09:21→17:00)
[2018-07-27] MEDS ORDERED: ENOXAPARIN 40MG/0.4ML SYR SUBCUT SCH (15:00)
[2018-07-27] MEDS: CEFTRIAXONE 2 G in DEXTROSE 5% WATER 50 ML IV SCH (15:48)
[2018-07-28] VITALS (51 sets, daily range): BP systolic 119–186; BP diastolic 60–101
[2018-07-28] MEDS: IPRATROPIUM/ALBUTEROL 0.5-3(2.5)MG/3ML NEB HHN SCH ×5 (00:25→19:43)
[2018-07-28] MEDS: BLOOD SUGAR DIAGNOSTIC STRIP TEST SCH ×4 (00:38→18:00)
[2018-07-28] MEDS: INSULIN LISPRO 100 UNITS/ML SUBCUT SCH ×4 (00:46→18:06)
[2018-07-28] MEDS: ACETAMINOPHEN 325MG TABLET PO PRN ×2 (00:57→16:30)
[2018-07-28 05:34] LABS: BASOPHILS % 0.9 % (0.0-2.0); EOSINOPHILS % 11.7 % (0.0-5.0); HEMATOCRIT. 21.3 % (42.0-52.0); LYMPHOCYTES % 9.4 % (20.0-50.0); MEAN CORPUSCULAR HEMOGLOBIN 26.7 pg (28.0-32.0); MEAN CORPUSCULAR VOLUME 80.9 fL (80.0-94.0); MEAN PLATELET VOLUME 7.7 fl (7.4-10.4); MONOCYTES % 12.8 % (2.0-8.0); NEUTROPHILS % 65.2 % (40.0-76.0); PLATELET 374 x1000/uL (130-400); RED BLOOD CELL COUNT 2.64 mill/uL (4.7-6.1); RED CELL DISTRIBUTION WIDTH 18.6 % (11.6-14.6)
[2018-07-28 05:45] LABS: PHOSPHORUS 2.8 mg/dL (2.5-4.9)
[2018-07-28 08:25] LABS: BG BASE EXCESS 2.6 mmol/L (-2.0-2.0); BG CARBOXYHEMOGLOBIN 0.7 % (0.5-1.5); BG DEOXYHEMOGLOBIN 2.4 % (0.0-5.0); BG HCO3 ACT 27.9 mmol/L (22.0-26.0); BG METHEMOGLOBIN 0.4 % (0.0-1.5); BG OXYGEN SATURATION 97.6 % (92.0-98.5); BG OXYHEMOGLOBIN 96.5 % (94.0-97.0); BG PCO2 47.3 mmHg (35.0-45.0); BG PH 7.389 (7.350-7.450); BG PO2 107.1 mmHg (75.0-100.0); BG SAMPLE SITE RIGHT RADIAL; BG TIDAL VOLUME(mL) 550 mL; BG TOTAL HEMOGLOBIN 7.7 g/dL (12.0-18.0); BG VENT MODE VENT - SIMV; BG VENT RATE 12 set
[2018-07-28] MEDS ORDERED: KCL 20MEQ/100ML PREMIX 100 ML IV NR (09:00)
[2018-07-28] MEDS: MIDODRINE HCL 5MG TABLET PO SCH ×2 (09:00→13:00)
[2018-07-28] MEDS: DEXT 5% WATER + KCL 20MEQ/L 1,000 ML IV SCH (09:23)
[2018-07-28] MEDS: METRONIDAZOLE 500MG TABLET PO SCH ×2 (09:35→21:26)
[2018-07-28] MEDS: LACTULOSE 20G/30ML UDC PO SCH (11:44)
[2018-07-28] MEDS: PANTOPRAZOLE 40MG DR TABLET PO SCH (12:30)
[2018-07-28] MEDS: MORPHINE SULFATE 4 MG/ML CPJ (NOT FOR IM USE) IV PRN ×2 (13:39→16:13)
[2018-07-28] MEDS: CEFTRIAXONE 2 G in DEXTROSE 5% WATER 50 ML IV SCH (15:35)
[2018-07-28] MEDS: LORAZEPAM 2MG/ML CPJ IV PRN (23:16)
[2018-07-29] VITALS (12 sets, daily range): BP systolic 134–164; BP diastolic 52–92
[2018-07-29] MEDS: BLOOD SUGAR DIAGNOSTIC STRIP TEST SCH ×4 (00:44→18:25)
[2018-07-29] MEDS: INSULIN LISPRO 100 UNITS/ML SUBCUT SCH ×4 (00:50→18:45)
[2018-07-29] MEDS: IPRATROPIUM/ALBUTEROL 0.5-3(2.5)MG/3ML NEB HHN SCH ×7 (00:55→23:45)
[2018-07-29] MEDS: LORAZEPAM 2MG/ML CPJ IV PRN ×3 (02:17→19:25)
[2018-07-29] MEDS: DEXT 5% WATER + KCL 20MEQ/L 1,000 ML IV SCH ×2 (04:38→10:04)
[2018-07-29 06:58] LABS: AMMONIA 56 uMol/L (<32)
[2018-07-29 07:03] LABS: BASOPHILS % 1.1 % (0.0-2.0); EOSINOPHILS % 6.4 % (0.0-5.0); HEMATOCRIT. 23.1 % (42.0-52.0); HEMOGLOBIN. 7.8 g/dL (14.0-18.0); LYMPHOCYTES % 8.3 % (20.0-50.0); MEAN CORPUSCULAR HEMOGLOBIN 27.3 pg (28.0-32.0); MEAN CORPUSCULAR VOLUME 80.9 fL (80.0-94.0); MEAN PLATELET VOLUME 8.2 fl (7.4-10.4); MONOCYTES % 11.1 % (2.0-8.0); NEUTROPHILS % 73.1 % (40.0-76.0); PLATELET 414 x1000/uL (130-400); RED BLOOD CELL COUNT 2.86 mill/uL (4.7-6.1); RED CELL DISTRIBUTION WIDTH 18.2 % (11.6-14.6)
[2018-07-29 07:09] LABS: PHOSPHORUS 2.6 mg/dL (2.5-4.9)
[2018-07-29] MEDS: LACTULOSE 20G/30ML UDC PO SCH (10:02)
[2018-07-29] MEDS: PANTOPRAZOLE 40MG DR TABLET PO SCH (10:03)
[2018-07-29] MEDS: METRONIDAZOLE 500MG TABLET PO SCH ×2 (10:03→20:47)
[2018-07-29] MEDS: MORPHINE SULFATE 4 MG/ML CPJ (NOT FOR IM USE) IV PRN ×3 (11:34→20:41)
[2018-07-29] MEDS: CEFTRIAXONE 2 G in DEXTROSE 5% WATER 50 ML IV SCH (17:00)
[2018-07-29] MEDS ORDERED: MAGNESIUM 2 G PREMIX 50 ML IV NR (17:30)
[2018-07-29] MEDS: QUETIAPINE FUMARATE 25MG TABLET PO SCH (20:47)
[2018-07-30] VITALS (12 sets, daily range): BP systolic 126–164; BP diastolic 47–104
[2018-07-30] MEDS: ACETAMINOPHEN 325MG TABLET PO PRN ×2 (01:05→11:20)
[2018-07-30] MEDS: IPRATROPIUM/ALBUTEROL 0.5-3(2.5)MG/3ML NEB HHN SCH ×5 (04:03→20:08)
[2018-07-30] MEDS: INSULIN LISPRO 100 UNITS/ML SUBCUT SCH ×4 (04:40→17:22)
[2018-07-30] MEDS: BLOOD SUGAR DIAGNOSTIC STRIP TEST SCH ×4 (06:00→17:20)
[2018-07-30] MEDS: PANTOPRAZOLE 40MG DR TABLET PO SCH (06:49)
[2018-07-30] MEDS: DEXT 5% WATER + KCL 20MEQ/L 1,000 ML IV SCH (06:55)
[2018-07-30 07:10] LABS: BASOPHILS % 1.5 % (0.0-2.0); EOSINOPHILS % 9.3 % (0.0-5.0); HEMATOCRIT. 23.8 % (42.0-52.0); LYMPHOCYTES % 11.2 % (20.0-50.0); MEAN CORPUSCULAR HEMOGLOBIN 27.3 pg (28.0-32.0); MEAN CORPUSCULAR VOLUME 81.3 fL (80.0-94.0); MEAN PLATELET VOLUME 7.8 fl (7.4-10.4); MONOCYTES % 9.9 % (2.0-8.0); NEUTROPHILS % 68.1 % (40.0-76.0); PLATELET 428 x1000/uL (130-400); RED BLOOD CELL COUNT 2.92 mill/uL (4.7-6.1); RED CELL DISTRIBUTION WIDTH 18.3 % (11.6-14.6)
[2018-07-30 07:43] LABS: AMMONIA 40 uMol/L (<32); PHOSPHORUS 2.8 mg/dL (2.5-4.9)
[2018-07-30] MEDS ORDERED: POTASSIUM CHLORIDE 20MEQ TABLET SR PO NR (09:00)
[2018-07-30] MEDS: METRONIDAZOLE 500MG TABLET PO SCH (09:03)
[2018-07-30] MEDS: LACTULOSE 20G/30ML UDC PO SCH (09:03)
[2018-07-30] MEDS ORDERED: HYDROCODONE/ACETAMINOPHEN 10/325MG TABLET PO PRN (12:00)
[2018-07-30] MEDS ORDERED: HYDROCODONE/ACETAMINOPHEN 5/325MG TABLET PO PRN (12:00)
[2018-07-30] MEDS: CEFTRIAXONE 2 G in DEXTROSE 5% WATER 50 ML IV SCH (14:28)
[2018-07-30] MEDS: LORAZEPAM 2MG/ML CPJ IM PRN (17:21)
[2018-07-30] MEDS: QUETIAPINE FUMARATE 25MG TABLET PO SCH (21:49)
[2018-07-31] VITALS (13 sets, daily range): BP systolic 139–169; BP diastolic 77–98
[2018-07-31] MEDS: INSULIN LISPRO 100 UNITS/ML SUBCUT SCH ×4 (00:10→17:49)
[2018-07-31] MEDS: IPRATROPIUM/ALBUTEROL 0.5-3(2.5)MG/3ML NEB HHN SCH ×5 (00:46→16:44)
[2018-07-31] MEDS: LORAZEPAM 2MG/ML CPJ IM PRN ×2 (01:43→13:18)
[2018-07-31] MEDS: DEXT 5% WATER + KCL 20MEQ/L 1,000 ML IV SCH (04:18)
[2018-07-31] MEDS: BLOOD SUGAR DIAGNOSTIC STRIP TEST SCH ×4 (06:00→18:59)
[2018-07-31 06:05] LABS: BASOPHILS % 1.3 % (0.0-2.0); EOSINOPHILS % 8.2 % (0.0-5.0); HEMATOCRIT. 22.8 % (42.0-52.0); HEMOGLOBIN. 7.7 g/dL (14.0-18.0); LYMPHOCYTES % 10.6 % (20.0-50.0); MEAN CORPUSCULAR HEMOGLOBIN 27.3 pg (28.0-32.0); MEAN CORPUSCULAR VOLUME 81.4 fL (80.0-94.0); MEAN PLATELET VOLUME 8.4 fl (7.4-10.4); MONOCYTES % 8.7 % (2.0-8.0); NEUTROPHILS % 71.2 % (40.0-76.0); PLATELET 447 x1000/uL (130-400); RED BLOOD CELL COUNT 2.81 mill/uL (4.7-6.1); RED CELL DISTRIBUTION WIDTH 18.2 % (11.6-14.6)
[2018-07-31 06:25] LABS: CHLORIDE 109 mEq/L (98-107)
[2018-07-31 06:31] LABS: PHOSPHORUS 2.4 mg/dL (2.5-4.9)
[2018-07-31] MEDS: PANTOPRAZOLE 40MG DR TABLET PO SCH (06:55)
[2018-07-31] MEDS: LACTULOSE 20G/30ML UDC PO SCH (08:12)
[2018-07-31] MEDS ORDERED: METHYLPREDNISOLONE SOD SUCC 125 MG/2 ML VIAL IV SCH (09:00)
[2018-07-31] MEDS ORDERED: MAGNESIUM 2 G PREMIX 50 ML IV ONE (09:45)
[2018-07-31] MEDS ORDERED: POTASSIUM CHLORIDE INJ 40 MEQ in DEXT 5% WATER 250 ML IV NR (11:30)
[2018-07-31] MEDS ORDERED: MAGNESIUM SULFATE 2 GM in DEXTROSE 5% WATER 50 ML IV NR (12:00)
[2018-07-31] MEDS ORDERED: METHYLPREDNISOLONE SOD SUCC 40 MG/ML VIAL IV SCH (14:00)
[2018-07-31] MEDS ORDERED: FUROSEMIDE 40MG/4ML VIAL IVP NR (14:00)
[2018-07-31] MEDS ORDERED: METHYLPREDNISOLONE SOD SUCC 40 MG/ML VIAL IV NR (14:00)
[2018-07-31] MEDS ORDERED: TERBUTALINE SULFATE 1MG/ML VIAL SUBCUT NR (14:21)
[2018-07-31] MEDS ORDERED: METRONIDAZOLE 500MG TABLET PO SCH (14:59)
[2018-07-31] MEDS ORDERED: BUDESONIDE 0.5MG/2ML NEB HHN SCH (16:00)
[2018-07-31] MEDS ORDERED: CEFTRIAXONE 1 G PREMIX 50 ML IV SCH (16:30)
== END 2018-07-31 20:12 | DRG 3 ==
LOC: ER 19:42 → EDBEDREQSVC 22:58 → EDBEDREQ 22:58 → EDBEDREQTM 22:58 → MICUSO 23:49 → EDBEDREQTM 23:53 → EDBEDREQ 23:53 → ENRESERV 07-14 00:10 → 5EST 07-28 21:45
PROVIDERS: ADMIT Hospitalist; ATTEND Hospitalist
PROC: 5A1955Z Respiratory Ventilation, Greater than 96 Consecutive Hours (ICD-10-PCS; principal; 2018-07-13)
PROC: 0BH18EZ Insertion of Endotracheal Airway into Trachea, Via Natural or Artificial Opening Endoscopic (ICD-10-PCS; 2018-07-13)
PROC: 06HM33Z Insertion of Infusion Device into Right Femoral Vein, Percutaneous Approach (ICD-10-PCS; 2018-07-13)
PROC: B54BZZA Ultrasonography of Right Lower Extremity Veins, Guidance (ICD-10-PCS; 2018-07-13)
PROC: 0W993ZZ Drainage of Right Pleural Cavity, Percutaneous Approach (ICD-10-PCS; 2018-07-15)
PROC: 0W993ZZ Drainage of Right Pleural Cavity, Percutaneous Approach (ICD-10-PCS; 2018-07-18)
PROC: 02HV33Z Insertion of Infusion Device into Superior Vena Cava, Percutaneous Approach (ICD-10-PCS; 2018-07-18)
PROC: B548ZZA Ultrasonography of Superior Vena Cava, Guidance (ICD-10-PCS; 2018-07-18)
PROC: 02HV33Z Insertion of Infusion Device into Superior Vena Cava, Percutaneous Approach (ICD-10-PCS; 2018-07-18)
PROC: B548ZZA Ultrasonography of Superior Vena Cava, Guidance (ICD-10-PCS; 2018-07-18)
PROC: 5A1D70Z Performance of Urinary Filtration, Intermittent, Less than 6 Hours Per Day (ICD-10-PCS; 2018-07-19)
PROC: 5A1D70Z Performance of Urinary Filtration, Intermittent, Less than 6 Hours Per Day (ICD-10-PCS; 2018-07-20)
PROC: 5A1D70Z Performance of Urinary Filtration, Intermittent, Less than 6 Hours Per Day (ICD-10-PCS; 2018-07-22)
PROC: 5A1D70Z Performance of Urinary Filtration, Intermittent, Less than 6 Hours Per Day (ICD-10-PCS; 2018-07-23)
PROC: 30233N1 Transfusion of Nonautologous Red Blood Cells into Peripheral Vein, Percutaneous Approach (ICD-10-PCS; 2018-07-25)
PROC: 0B110F4 Bypass Trachea to Cutaneous with Tracheostomy Device, Open Approach (ICD-10-PCS; 2018-07-26)
PROC: 0GBJ0ZZ Excision of Thyroid Gland Isthmus, Open Approach (ICD-10-PCS; 2018-07-26)
PROC: 0DH63UZ Insertion of Feeding Device into Stomach, Percutaneous Approach (ICD-10-PCS; 2018-07-26)
DX: A41.9 Sepsis, unspecified organism (principal); J18.9 Pneumonia, unspecified organism; E43 Unspecified severe protein-calorie malnutrition; R65.21 Severe sepsis with septic shock; I50.33 Acute on chronic diastolic (congestive) heart failure; J96.01 Acute respiratory failure with hypoxia; K72.00 Acute and subacute hepatic failure without coma; N18.6 End stage renal disease; N17.0 Acute kidney failure with tubular necrosis; E87.0 Hyperosmolality and hypernatremia; E87.1 Hypo-osmolality and hyponatremia; I13.2 Hypertensive heart and chronic kidney disease with heart failure and with stage 5 chronic kidney disease, or end stage renal disease; Z68.41 Body mass index [BMI] 40.0-44.9, adult; E83.39 Other disorders of phosphorus metabolism; S70.311A Abrasion, right thigh, initial encounter; X58.XXXA Exposure to other specified factors, initial encounter; F32.9 Major depressive disorder, single episode, unspecified; G89.29 Other chronic pain; M19.90 Unspecified osteoarthritis, unspecified site; M54.9 Dorsalgia, unspecified; M25.561 Pain in right knee; M25.562 Pain in left knee; D63.1 Anemia in chronic kidney disease; E11.22 Type 2 diabetes mellitus with diabetic chronic kidney disease; E66.01 Morbid (severe) obesity due to excess calories; E87.6 Hypokalemia; R13.10 Dysphagia, unspecified; Y95 Nosocomial condition; Z78.1 Physical restraint status; Z82.49 Family history of ischemic heart disease and other diseases of the circulatory system; Z83.3 Family history of diabetes mellitus; Z99.2 Dependence on renal dialysis; Z90.49 Acquired absence of other specified parts of digestive tract; Z79.899 Other long term (current) drug therapy; Z79.84 Long term (current) use of oral hypoglycemic drugs; Y93.89 Activity, other specified; Y92.89 Other specified places as the place of occurrence of the external cause; Y99.8 Other external cause status
CPT/HCPCS: 31500; 32555; 36415; 36556; 36569; 36600; 70450; 71045; 71250; 76700; 76770; 76937; 80048; 80053; 80061; 80076; 80202; 81003; 82140; 82270; 82375; 82550; 82607; 82728; 82746; 82805; 82962; 83540; 83550; 83605; 83690; 83735; 83880; 84100; 84134; 84439; 84443; 84478; 84481; 84484; 85025; 85379; 85610; 85730; 86705; 86709; 86803; 86850; 86900; 86920; 87040; 87070; 87086; 87205; 87340; 88108; 88312; 93005; 93306; 93970; 94002; 94003; 94640; 94660; 94667; 96365; 96368; 96375; 97163; 97167; 97530; 99291; A6261; C1725; C1752; C1769; C9113; J0330; J0696; J1644; J1650; J1815; J1940; J1956; J2060; J2185; J2250; J2270; J2370; J2405; J2543; J2704; J2765; J2920; J3010; J3105; J3370; J3475; J3480; J3490; J7030; J7042; J7050; J7060; J7070; J7620; J7626; P9016; P9047; A4315

== ENCOUNTER 2019-01-27 15:50 | Inpatient (IN) | payer MEDICARE, OTHER ==
[~2019-01-27] VITALS: Ht 175.3 cm; Wt 103.9 kg
[~2019-01-27 15:50] MED LIST changes: -ETOMIDATE 2MG/ML 10ML VIAL IV ONE; -SUCCINYLCHOLINE CHLORIDE 200MG/10ML VIAL IV ONE
[2019-01-27] MEDS ORDERED: SODIUM CHLORIDE 0.9% 1,000 ML IV ONE ×2 (20:11→21:45)
[2019-01-27 21:07] LABS: HEMATOCRIT. 35.4 % (42.0-52.0); HEMOGLOBIN. 11.6 g/dL (14.0-18.0); MEAN CORPUSCULAR HEMOGLOBIN 27.5 pg (28.0-32.0); MEAN PLATELET VOLUME 7.6 fl (7.4-10.4); PLATELET 566 x1000/uL (130-400); RED BLOOD CELL COUNT 4.22 mill/uL (4.7-6.1); RED CELL DISTRIBUTION WIDTH 14.3 % (11.6-14.6)
[2019-01-27 21:10] LABS: CHLORIDE 106 mEq/L (98-107); INR 1.1; PROTHROMBIN TIME 11.3 sec (9.1-11.1)
[2019-01-27 21:30] LABS: CREATINE KINASE 1965 IU/L (39-308)
[2019-01-27] MEDS ORDERED: MORPHINE SULFATE 4 MG/ML CPJ (NOT FOR IM USE) IV ONE (21:45)
[2019-01-27 22:39] LABS: PLATELET ESTIMATE INCREASED
[2019-01-27] MEDS ORDERED: MAGNESIUM/ALUMINUM HYDROXIDE/SIMETHICONE 30ML UDC PO PRN (23:00)
[2019-01-27] MEDS ORDERED: IPRATROPIUM/ALBUTEROL 0.5-3(2.5)MG/3ML NEB INH PRN (23:00)
[2019-01-27] MEDS ORDERED: GUAIFENESIN 200MG/10ML SUGAR FREE UDC PO PRN (23:00)
[2019-01-27] MEDS ORDERED: DOCUSATE SODIUM 100MG CAPSULE PO PRN (23:00)
[2019-01-27] MEDS ORDERED: HYDROCODONE/ACETAMINOPHEN 5/325MG TABLET PO PRN (23:00)
[2019-01-27] MEDS ORDERED: ACETAMINOPHEN 650MG/20.3ML UDC GT PRN (23:00)
[2019-01-27] MEDS ORDERED: ONDANSETRON HCL 4MG/2ML INJ IV PRN (23:00)
[2019-01-27] MEDS ORDERED: ACETAMINOPHEN 325MG TABLET PO PRN (23:00)
[2019-01-27] MEDS: SODIUM CHLORIDE 0.45% 1,000 ML IV SCH (23:00)
[2019-01-27] MEDS ORDERED: DIPHENHYDRAMINE 50MG/ML VIAL IV PRN (23:00)
[2019-01-27] MEDS ORDERED: ACETAMINOPHEN 650MG SUPP PR PRN (23:00)
[2019-01-27] MEDS ORDERED: HYDROCODONE/ACETAMINOPHEN 10/325MG TABLET PO PRN (23:00)
[2019-01-27] MEDS ORDERED: CLONIDINE 0.1MG TABLET PO PRN (23:00)
[2019-01-27] MEDS ORDERED: ENOXAPARIN 40MG/0.4ML SYR SUBCUT NR (23:50)
[2019-01-28 00:17] LABS: CLARITY URINE CLEAR (CLEAR); COLOR URINE YELLOW (YELLOW); KETONES URINE 1+ (NEGATIVE); LEUKOCYTE ESTERASE URINE TRACE (NEGATIVE); NITRITE URINE NEGATIVE (NEGATIVE); OCCULT BLOOD URINE 1+ (NEGATIVE); PH URINE 5.5 (4.5-8.0); PROTEIN URINE 1+ (NEGATIVE); SPECIFIC GRAVITY URINE 1.014 (1.005-1.030); UROBILINOGEN URINE 0.2 E.U./dL (0.2-1.0)
[2019-01-28 00:30] LABS: *AMPHETAMINES SCREEN URINE NEGATIVE (NEGATIVE); *BARBITURATES SCREEN URINE NEGATIVE (NEGATIVE)
[2019-01-28 00:31] LABS: *COCAINE SCREEN URINE NEGATIVE (NEGATIVE); METHADONE URINE SCREEN NEGATIVE (NEGATIVE); OPIATES URINE SCREEN PRESUMTIVE POSITIVE (NEGATIVE)
[2019-01-28 00:32] LABS: CANNABINOID URINE SCREEN NEGATIVE (NEGATIVE); PHENCYCLIDINE URINE SCREEN NEGATIVE (NEGATIVE)
[2019-01-28 00:33] LABS: *BENZODIAZEPINES SCREEN URINE NEGATIVE (NEGATIVE)
[2019-01-28] MEDS ORDERED: DIGOXIN 500MCG/2ML AMP IV SCH (01:15)
[2019-01-28] MEDS: SODIUM CHLORIDE 0.45% 1,000 ML IV SCH (02:00)
[2019-01-28 05:15] LABS: HEMATOCRIT. 26.7 % (42.0-52.0); HEMOGLOBIN. 8.6 g/dL (14.0-18.0); MEAN CORPUSCULAR HEMOGLOBIN 26.9 pg (28.0-32.0); MEAN CORPUSCULAR VOLUME 83.8 fL (80.0-94.0); MEAN PLATELET VOLUME 7.1 fl (7.4-10.4); PLATELET 431 x1000/uL (130-400); RED BLOOD CELL COUNT 3.18 mill/uL (4.7-6.1); RED CELL DISTRIBUTION WIDTH 14.5 % (11.6-14.6)
[2019-01-28 05:22] LABS: CHLORIDE 113 mEq/L (98-107)
[2019-01-28 05:30] LABS: HDL CHOLESTEROL 35 mg/dL (40-59); LDL CHOLESTEROL 55 mg/dL (5-100)
[2019-01-28] MEDS: SODIUM CHLORIDE 0.9% INJ 3ML FLUSH IVF SCH ×3 (06:00→22:00)
[2019-01-28 08:37] LABS: ATYPICAL LYMPHOCYTES 1; PLATELET ESTIMATE SLIGHTLY INCREASED
[2019-01-28] MEDS ORDERED: NA PHOS,M-B/NA PHOS,DI-BA ENEMA 118ML PR PRN (09:00)
[2019-01-28] MEDS ORDERED: POTASSIUM CHLORIDE 20MEQ TABLET SR PO PRN (09:00)
[2019-01-28] MEDS ORDERED: FINA5TAB11 MT (11:04)
[2019-01-28] MEDS ORDERED: AMLO5TAB88 MT (11:04)
[2019-01-28] MEDS ORDERED: AMLO-375 PO (11:04)
[2019-01-28] MEDS: DEXTROSE 5% WATER 1,000 ML IV SCH ×2 (14:34→23:04)
[2019-01-28 16:00] VITALS: BP 140/68
[2019-01-28 16:15] VITALS: BP 143/83
[2019-01-28] MEDS ORDERED: DEXTROSE 50% WATER 50ML SYRINGE IV PRN (20:00)
[2019-01-28] MEDS: BLOOD SUGAR DIAGNOSTIC STRIP TEST SCH (21:00)
[2019-01-28] MEDS: CARVEDILOL 25MG TABLET PO SCH (22:50)
[2019-01-28] MEDS: INSULIN LISPRO 100 UNITS/ML SUBCUT SCH (22:58)
[2019-01-28] MEDS ORDERED: ENOXAPARIN 40MG/0.4ML SYR SUBCUT SCH (23:00)
[2019-01-28 23:40] VITALS: BP 139/65
[2019-01-29 04:00] VITALS: BP 120/41
[2019-01-29] MEDS: SODIUM CHLORIDE 0.9% INJ 3ML FLUSH IVF SCH (06:33)
[2019-01-29] MEDS: INSULIN LISPRO 100 UNITS/ML SUBCUT SCH ×3 (07:52→18:00)
[2019-01-29] MEDS: BLOOD SUGAR DIAGNOSTIC STRIP TEST SCH ×3 (07:52→17:56)
[2019-01-29 08:00] VITALS: BP 128/57
[2019-01-29] MEDS ORDERED: AMLODIPINE 5MG TABLET PO SCH (09:00)
[2019-01-29] MEDS ORDERED: FINASTERIDE 5MG TABLET PO SCH (09:00)
[2019-01-29] MEDS: CARVEDILOL 25MG TABLET PO SCH (09:14)
[2019-01-29 12:00] VITALS: BP 121/73
[2019-01-29 13:16] LABS: BASOPHILS % 0.6 % (0.0-2.0); EOSINOPHILS % 2.7 % (0.0-5.0); HEMATOCRIT. 28.2 % (42.0-52.0); HEMOGLOBIN. 9.3 g/dL (14.0-18.0); LYMPHOCYTES % 10.2 % (20.0-50.0); MEAN CORPUSCULAR HEMOGLOBIN 27.5 pg (28.0-32.0); MEAN CORPUSCULAR VOLUME 83.7 fL (80.0-94.0); MEAN PLATELET VOLUME 7.1 fl (7.4-10.4); MONOCYTES % 10.7 % (2.0-8.0); NEUTROPHILS % 75.8 % (40.0-76.0); PLATELET 412 x1000/uL (130-400); RED BLOOD CELL COUNT 3.37 mill/uL (4.7-6.1); RED CELL DISTRIBUTION WIDTH 14.4 % (11.6-14.6)
[2019-01-29 13:22] LABS: CHLORIDE 106 mEq/L (98-107)
[2019-01-29 13:31] LABS: CREATINE KINASE 538 IU/L (39-308)
[2019-01-29 16:00] VITALS: BP 128/57
[2019-01-29] MEDS ORDERED: ENOXAPARIN 30MG/0.3ML SYR SUBCUT SCH (18:00)
[2019-01-29 18:42] VITALS: BP 128/57
[2019-01-29 20:00] VITALS: BP 137/71
== END 2019-01-29 20:35 | DRG 558 ==
LOC: ER 15:50 → 7WST 21:59 → EDBEDREQTM 22:03 → EDBEDREQ 22:03 → ENRESERV 01-28 07:28
PROVIDERS: ADMIT Family Medicine; ATTEND Family Medicine
DX: M62.82 Rhabdomyolysis (principal); E66.01 Morbid (severe) obesity due to excess calories; W18.30XA Fall on same level, unspecified, initial encounter; G47.30 Sleep apnea, unspecified; E11.9 Type 2 diabetes mellitus without complications; E78.5 Hyperlipidemia, unspecified; I50.9 Heart failure, unspecified; F11.10 Opioid abuse, uncomplicated; F15.10 Other stimulant abuse, uncomplicated; L89.150 Pressure ulcer of sacral region, unstageable; L89.110 Pressure ulcer of right upper back, unstageable; I11.0 Hypertensive heart disease with heart failure; F32.9 Major depressive disorder, single episode, unspecified; G90.8 Other disorders of autonomic nervous system; Z82.49 Family history of ischemic heart disease and other diseases of the circulatory system; Z90.49 Acquired absence of other specified parts of digestive tract; Z68.33 Body mass index [BMI] 33.0-33.9, adult; Z79.899 Other long term (current) drug therapy; Y93.89 Activity, other specified; Y92.89 Other specified places as the place of occurrence of the external cause; Y99.8 Other external cause status
CPT/HCPCS: 36415; 71045; 72192; 73521; 80061; 80305; 82550; 82962; 83880; 84134; 84484; 93005; 93970; 96372; 96374; 97162; 97166; 99291; A6261; J1160; J1650; J1815; J2270; J7030; J7070

== ENCOUNTER 2019-01-29 20:45 | Inpatient (IN) | payer MEDICARE, OTHER ==
[~2019-01-29] VITALS: Ht 175.3 cm; Wt 103.9 kg
[2019-01-29 20:45] VITALS: BP 128/74
[~2019-01-29 20:45] MED LIST changes: +AMLO-375 PO; +AMLO5TAB88 MT; +FINA5TAB11 MT
[2019-01-29] MEDS ORDERED: DEXTROSE 50% WATER 50ML SYRINGE IV PRN (23:45)
[2019-01-30] MEDS: BLOOD SUGAR DIAGNOSTIC STRIP TEST SCH ×4 (06:30→21:00)
[2019-01-30 06:51] LABS: BASOPHILS % 0.3 % (0.0-2.0); EOSINOPHILS % 3.2 % (0.0-5.0); HEMATOCRIT. 27.6 % (42.0-52.0); HEMOGLOBIN. 9.1 g/dL (14.0-18.0); LYMPHOCYTES % 9.5 % (20.0-50.0); MEAN CORPUSCULAR HEMOGLOBIN 27.5 pg (28.0-32.0); MEAN CORPUSCULAR VOLUME 83.5 fL (80.0-94.0); MEAN PLATELET VOLUME 7.1 fl (7.4-10.4); MONOCYTES % 9.7 % (2.0-8.0); NEUTROPHILS % 77.3 % (40.0-76.0); PLATELET 408 x1000/uL (130-400); RED BLOOD CELL COUNT 3.31 mill/uL (4.7-6.1); RED CELL DISTRIBUTION WIDTH 14.3 % (11.6-14.6)
[2019-01-30 07:10] LABS: CHLORIDE 107 mEq/L (98-107)
[2019-01-30] MEDS ORDERED: POTASSIUM CHLORIDE 20MEQ TABLET SR PO PRN (08:00)
[2019-01-30 08:19] VITALS: BP 133/76
[2019-01-30 08:29] LABS: CREATINE KINASE 289 IU/L (39-308)
[2019-01-30] MEDS: POTASSIUM CHLORIDE 20MEQ TABLET SR PO SCH (08:59)
[2019-01-30] MEDS: FINASTERIDE 5MG TABLET PO SCH (08:59)
[2019-01-30] MEDS: DOCUSATE SODIUM 100MG CAPSULE PO SCH ×2 (08:59→16:06)
[2019-01-30] MEDS: PIOGLITAZONE 15MG TABLET PO SCH (08:59)
[2019-01-30] MEDS: CARVEDILOL 25MG TABLET PO SCH ×2 (09:00)
[2019-01-30] MEDS ORDERED: MEDICATION NOT ON FORMULARY EA (Finasteride 1 TAB) MT SCH (09:00)
[2019-01-30] MEDS: INSULIN LISPRO 100 UNITS/ML SUBCUT SCH ×4 (09:00→21:00)
[2019-01-30 12:00] VITALS: BP 144/63
[2019-01-30] MEDS ORDERED: POTASSIUM CHLORIDE 20MEQ TABLET SR PO NR (15:30)
[2019-01-30] MEDS: ENOXAPARIN 30MG/0.3ML SYR SUBCUT SCH (16:07)
[2019-01-30 20:00] VITALS: BP 169/72
[2019-01-30 20:30] VITALS: BP 140/70
[2019-01-30] MEDS: ACETAMINOPHEN 325MG TABLET PO PRN (22:08)
[2019-01-30] MEDS: DILTIAZEM HCL 90MG TABLET PO SCH (22:09)
[2019-01-30 23:08] VITALS: BP 129/70
[2019-01-31] MEDS: DILTIAZEM HCL 90MG TABLET PO SCH ×3 (05:21→22:00)
[2019-01-31] MEDS: ENOXAPARIN 30MG/0.3ML SYR SUBCUT SCH ×2 (05:22→17:44)
[2019-01-31 06:00] VITALS: BP 134/72
[2019-01-31] MEDS: INSULIN LISPRO 100 UNITS/ML SUBCUT SCH ×4 (06:46→21:00)
[2019-01-31] MEDS: BLOOD SUGAR DIAGNOSTIC STRIP TEST SCH ×4 (06:46→21:00)
[2019-01-31 08:00] VITALS: BP 146/62
[2019-01-31] MEDS: PIOGLITAZONE 15MG TABLET PO SCH (09:01)
[2019-01-31] MEDS: DOCUSATE SODIUM 100MG CAPSULE PO SCH ×2 (09:01→16:44)
[2019-01-31] MEDS: FINASTERIDE 5MG TABLET PO SCH (09:01)
[2019-01-31] MEDS: POTASSIUM CHLORIDE 20MEQ TABLET SR PO SCH (09:02)
[2019-01-31 20:00] VITALS: BP 114/51
[2019-02-01] MEDS: DILTIAZEM HCL 90MG TABLET PO SCH (05:53)
[2019-02-01] MEDS: ENOXAPARIN 30MG/0.3ML SYR SUBCUT SCH ×2 (05:53→17:25)
[2019-02-01] MEDS: BLOOD SUGAR DIAGNOSTIC STRIP TEST SCH ×4 (05:53→21:00)
[2019-02-01] MEDS: INSULIN LISPRO 100 UNITS/ML SUBCUT SCH ×4 (06:09→21:00)
[2019-02-01 08:00] VITALS: BP 142/62
[2019-02-01] MEDS: PIOGLITAZONE 15MG TABLET PO SCH (08:44)
[2019-02-01] MEDS: FINASTERIDE 5MG TABLET PO SCH (08:44)
[2019-02-01] MEDS: POTASSIUM CHLORIDE 20MEQ TABLET SR PO SCH (08:44)
[2019-02-01] MEDS: DOCUSATE SODIUM 100MG CAPSULE PO SCH ×2 (08:44→17:24)
[2019-02-01] MEDS ORDERED: HYDROCODONE/ACETAMINOPHEN 5/325MG TABLET PO PRN (09:15)
[2019-02-01] MEDS ORDERED: BENZOCAINE (ORAJEL) PASTE MM PRN (11:00)
[2019-02-01] MEDS: DILTIAZEM HCL 300MG CAPSULE SR 24HR PO SCH (15:34)
[2019-02-01 20:00] VITALS: BP 137/64
[2019-02-02] MEDS: INSULIN LISPRO 100 UNITS/ML SUBCUT SCH ×4 (05:57→21:00)
[2019-02-02] MEDS: BLOOD SUGAR DIAGNOSTIC STRIP TEST SCH ×4 (05:57→21:26)
[2019-02-02] MEDS: ENOXAPARIN 30MG/0.3ML SYR SUBCUT SCH ×2 (05:57→17:24)
[2019-02-02 08:00] VITALS: BP 117/61
[2019-02-02] MEDS: DILTIAZEM HCL 300MG CAPSULE SR 24HR PO SCH (09:02)
[2019-02-02] MEDS: DOCUSATE SODIUM 100MG CAPSULE PO SCH ×2 (09:02→17:23)
[2019-02-02] MEDS: PIOGLITAZONE 15MG TABLET PO SCH (09:02)
[2019-02-02] MEDS: FINASTERIDE 5MG TABLET PO SCH (09:02)
[2019-02-02] MEDS: POTASSIUM CHLORIDE 20MEQ TABLET SR PO SCH (09:03)
[2019-02-02 20:00] VITALS: BP 115/69
[2019-02-02] MEDS: VENLAFAXINE HCL 37.5MG TABLET PO SCH (21:25)
[2019-02-03] MEDS: BLOOD SUGAR DIAGNOSTIC STRIP TEST SCH ×4 (05:47→21:48)
[2019-02-03] MEDS: ENOXAPARIN 30MG/0.3ML SYR SUBCUT SCH ×2 (05:47→17:40)
[2019-02-03] MEDS: INSULIN LISPRO 100 UNITS/ML SUBCUT SCH ×4 (06:28→21:00)
[2019-02-03 08:15] VITALS: BP 116/59
[2019-02-03] MEDS: PIOGLITAZONE 15MG TABLET PO SCH (08:41)
[2019-02-03] MEDS: DOCUSATE SODIUM 100MG CAPSULE PO SCH ×2 (08:41→17:40)
[2019-02-03] MEDS: FINASTERIDE 5MG TABLET PO SCH (08:41)
[2019-02-03] MEDS: DILTIAZEM HCL 300MG CAPSULE SR 24HR PO SCH (08:41)
[2019-02-03] MEDS: POTASSIUM CHLORIDE 20MEQ TABLET SR PO SCH (08:42)
[2019-02-03] MEDS: VENLAFAXINE HCL 37.5MG TABLET PO SCH ×2 (08:45→21:48)
[2019-02-03 20:00] VITALS: BP 100/61
[2019-02-04] MEDS: BLOOD SUGAR DIAGNOSTIC STRIP TEST SCH ×4 (05:46→21:14)
[2019-02-04] MEDS: ENOXAPARIN 30MG/0.3ML SYR SUBCUT SCH ×2 (05:46→17:12)
[2019-02-04] MEDS: INSULIN LISPRO 100 UNITS/ML SUBCUT SCH ×4 (06:11→21:15)
[2019-02-04] MEDS: DILTIAZEM HCL 300MG CAPSULE SR 24HR PO SCH (08:14)
[2019-02-04] MEDS: VENLAFAXINE HCL 37.5MG TABLET PO SCH ×2 (08:14→21:14)
[2019-02-04] MEDS: DOCUSATE SODIUM 100MG CAPSULE PO SCH ×2 (08:14→17:12)
[2019-02-04] MEDS: POTASSIUM CHLORIDE 20MEQ TABLET SR PO SCH (08:14)
[2019-02-04] MEDS: PIOGLITAZONE 15MG TABLET PO SCH (08:14)
[2019-02-04] MEDS: FINASTERIDE 5MG TABLET PO SCH (08:14)
[2019-02-04 08:43] VITALS: BP 144/69
[2019-02-04] MEDS: ACETAMINOPHEN 325MG TABLET PO PRN (10:22)
[2019-02-04] MEDS ORDERED: GUAIFENESIN 600MG ER TABLET PO PRN (10:45)
[2019-02-04 11:10] VITALS: BP 178/87
[2019-02-04 11:30] LABS: HEMATOCRIT. 28.6 % (42.0-52.0); HEMOGLOBIN. 9.2 g/dL (14.0-18.0); MEAN CORPUSCULAR HEMOGLOBIN 26.6 pg (28.0-32.0); MEAN CORPUSCULAR VOLUME 82.3 fL (80.0-94.0); MEAN PLATELET VOLUME 7.3 fl (7.4-10.4); PLATELET 420 x1000/uL (130-400); RED BLOOD CELL COUNT 3.47 mill/uL (4.7-6.1); RED CELL DISTRIBUTION WIDTH 15.2 % (11.6-14.6)
[2019-02-04 11:34] LABS: CHLORIDE 106 mEq/L (98-107)
[2019-02-04 12:03] LABS: PLATELET ESTIMATE SLIGHTLY INCREASED
[2019-02-04 12:10] VITALS: BP 145/65
[2019-02-04] MEDS ORDERED: CLONIDINE 0.1MG TABLET PO PRN (12:15)
[2019-02-04] MEDS: METOPROLOL TARTRATE 50MG TABLET PO SCH ×2 (12:20→21:00)
[2019-02-04 12:38] LABS: PROTHROMBIN TIME 10.5 sec (9.1-11.1)
[2019-02-04 15:04] LABS: CLARITY URINE CLEAR (CLEAR); COLOR URINE YELLOW (YELLOW); KETONES URINE TRACE (NEGATIVE); LEUKOCYTE ESTERASE URINE 2+ (NEGATIVE); NITRITE URINE NEGATIVE (NEGATIVE); OCCULT BLOOD URINE NEGATIVE (NEGATIVE); PROTEIN URINE NEGATIVE (NEGATIVE)
[2019-02-04] MEDS: CEFTRIAXONE 1 G PREMIX 50 ML IV SCH (15:07)
[2019-02-04 20:00] VITALS: BP 102/70
[2019-02-04] MEDS: IPRATROPIUM BROMIDE (0.02%) 0.5MG/2.5ML NEB HHN SCH (21:44)
[2019-02-05] MEDS: IPRATROPIUM BROMIDE (0.02%) 0.5MG/2.5ML NEB HHN SCH ×4 (02:58→22:06)
[2019-02-05] MEDS: ACETAMINOPHEN 325MG TABLET PO PRN ×2 (05:40→12:52)
[2019-02-05] MEDS: ENOXAPARIN 30MG/0.3ML SYR SUBCUT SCH ×2 (05:41→10:07)
[2019-02-05 05:58] LABS: HEMATOCRIT. 22.2 % (42.0-52.0); HEMOGLOBIN. 7.2 g/dL (14.0-18.0); MEAN CORPUSCULAR HEMOGLOBIN 26.9 pg (28.0-32.0); MEAN CORPUSCULAR VOLUME 82.7 fL (80.0-94.0); MEAN PLATELET VOLUME 7.7 fl (7.4-10.4); PLATELET 349 x1000/uL (130-400); RED BLOOD CELL COUNT 2.68 mill/uL (4.7-6.1); RED CELL DISTRIBUTION WIDTH 15.3 % (11.6-14.6)
[2019-02-05] MEDS: INSULIN LISPRO 100 UNITS/ML SUBCUT SCH ×4 (06:23→22:29)
[2019-02-05] MEDS: BLOOD SUGAR DIAGNOSTIC STRIP TEST SCH ×4 (07:01→21:00)
[2019-02-05 08:01] VITALS: BP 109/50
[2019-02-05] MEDS: DOCUSATE SODIUM 100MG CAPSULE PO SCH ×2 (08:36→16:51)
[2019-02-05] MEDS: FINASTERIDE 5MG TABLET PO SCH (08:37)
[2019-02-05] MEDS: VENLAFAXINE HCL 37.5MG TABLET PO SCH ×2 (08:37→22:20)
[2019-02-05] MEDS: PIOGLITAZONE 15MG TABLET PO SCH (08:37)
[2019-02-05] MEDS: DILTIAZEM HCL 300MG CAPSULE SR 24HR PO SCH (08:40)
[2019-02-05] MEDS: METOPROLOL TARTRATE 50MG TABLET PO SCH ×2 (09:00→22:20)
[2019-02-05 11:39] LABS: PLATELET ESTIMATE NORMAL
[2019-02-05] MEDS: CEFTRIAXONE 1 G PREMIX 50 ML IV SCH (12:52)
[2019-02-05] MEDS ORDERED: MEROPENEM 500 MG in SODIUM CHLORIDE 0.9% 50 ML IV SCH (14:45)
[2019-02-05] MEDS: MEROPENEM 1000MG in NORMAL SALINE 100ML IV SCH ×2 (15:37→23:30)
[2019-02-05 20:00] VITALS: BP 112/65
[2019-02-06] MEDS: IPRATROPIUM BROMIDE (0.02%) 0.5MG/2.5ML NEB HHN SCH ×4 (03:00→21:12)
[2019-02-06] MEDS: ENOXAPARIN 30MG/0.3ML SYR SUBCUT SCH ×2 (05:52→17:42)
[2019-02-06] MEDS: BLOOD SUGAR DIAGNOSTIC STRIP TEST SCH ×4 (05:52→21:43)
[2019-02-06 06:18] LABS: BASOPHILS % 0.2 % (0.0-2.0); EOSINOPHILS % 1.9 % (0.0-5.0); HEMATOCRIT. 22.7 % (42.0-52.0); HEMOGLOBIN. 7.3 g/dL (14.0-18.0); LYMPHOCYTES % 9.2 % (20.0-50.0); MEAN CORPUSCULAR HEMOGLOBIN 26.4 pg (28.0-32.0); MEAN CORPUSCULAR VOLUME 82.3 fL (80.0-94.0); MEAN PLATELET VOLUME 7.4 fl (7.4-10.4); MONOCYTES % 6.6 % (2.0-8.0); NEUTROPHILS % 82.1 % (40.0-76.0); PLATELET 288 x1000/uL (130-400); RED BLOOD CELL COUNT 2.76 mill/uL (4.7-6.1); RED CELL DISTRIBUTION WIDTH 15.3 % (11.6-14.6)
[2019-02-06] MEDS: MEROPENEM 1000MG in NORMAL SALINE 100ML IV SCH ×2 (07:30→15:18)
[2019-02-06 08:00] VITALS: BP 95/55
[2019-02-06] MEDS: INSULIN LISPRO 100 UNITS/ML SUBCUT SCH ×4 (08:26→21:00)
[2019-02-06] MEDS: METOPROLOL TARTRATE 50MG TABLET PO SCH ×2 (09:00→21:43)
[2019-02-06] MEDS: VENLAFAXINE HCL 37.5MG TABLET PO SCH ×2 (09:00→21:42)
[2019-02-06] MEDS: FINASTERIDE 5MG TABLET PO SCH (09:00)
[2019-02-06] MEDS: PIOGLITAZONE 15MG TABLET PO SCH (09:00)
[2019-02-06] MEDS: DILTIAZEM HCL 300MG CAPSULE SR 24HR PO SCH (09:00)
[2019-02-06] MEDS: DOCUSATE SODIUM 100MG CAPSULE PO SCH ×2 (09:00→17:08)
[2019-02-06] MEDS: CEFAZOLIN 1000MG PREMIX 50 ML IV SCH (18:00)
[2019-02-06 20:00] VITALS: BP 142/52
[2019-02-06] MEDS: ACETAMINOPHEN 325MG TABLET PO PRN (21:43)
[2019-02-07] MEDS: IPRATROPIUM BROMIDE (0.02%) 0.5MG/2.5ML NEB HHN SCH ×4 (02:32→21:15)
[2019-02-07] MEDS: CEFAZOLIN 1000MG PREMIX 50 ML IV SCH ×2 (05:29→18:10)
[2019-02-07] MEDS: ENOXAPARIN 30MG/0.3ML SYR SUBCUT SCH ×2 (05:33→17:31)
[2019-02-07] MEDS: BLOOD SUGAR DIAGNOSTIC STRIP TEST SCH ×4 (07:28→21:00)
[2019-02-07] MEDS: INSULIN LISPRO 100 UNITS/ML SUBCUT SCH ×4 (07:29→21:00)
[2019-02-07 08:00] VITALS: BP 90/53
[2019-02-07] MEDS: VENLAFAXINE HCL 37.5MG TABLET PO SCH ×2 (08:48→22:42)
[2019-02-07] MEDS: DILTIAZEM HCL 300MG CAPSULE SR 24HR PO SCH (08:48)
[2019-02-07] MEDS: FINASTERIDE 5MG TABLET PO SCH (08:48)
[2019-02-07] MEDS: METOPROLOL TARTRATE 50MG TABLET PO SCH ×2 (08:48→22:41)
[2019-02-07] MEDS: PIOGLITAZONE 15MG TABLET PO SCH (08:48)
[2019-02-07] MEDS: DOCUSATE SODIUM 100MG CAPSULE PO SCH ×2 (08:48→17:30)
[2019-02-07] MEDS ORDERED: MULTIVITAMINS,THER W-MINERALS TABLET PO SCH (14:15)
[2019-02-07] MEDS ORDERED: ZINC SULFATE 220 MG ( 50 ) CAPSULE PO SCH (14:15)
[2019-02-07 20:23] VITALS: BP 124/62
[2019-02-07] MEDS: ASCORBIC ACID 250 MG TABLET PO SCH (22:41)
[2019-02-08] MEDS: IPRATROPIUM BROMIDE (0.02%) 0.5MG/2.5ML NEB HHN SCH ×4 (01:44→21:04)
[2019-02-08] MEDS: CEFAZOLIN 1000MG PREMIX 50 ML IV SCH ×2 (05:34→17:00)
[2019-02-08] MEDS: ENOXAPARIN 30MG/0.3ML SYR SUBCUT SCH ×2 (05:34→16:53)
[2019-02-08] MEDS: BLOOD SUGAR DIAGNOSTIC STRIP TEST SCH ×4 (05:34→21:00)
[2019-02-08 06:25] LABS: HEMATOCRIT. 26.2 % (42.0-52.0); HEMOGLOBIN. 8.6 g/dL (14.0-18.0); MEAN CORPUSCULAR HEMOGLOBIN 27.3 pg (28.0-32.0); MEAN CORPUSCULAR VOLUME 82.6 fL (80.0-94.0); MEAN PLATELET VOLUME 7.3 fl (7.4-10.4); PLATELET 403 x1000/uL (130-400); RED BLOOD CELL COUNT 3.17 mill/uL (4.7-6.1); RED CELL DISTRIBUTION WIDTH 15.5 % (11.6-14.6)
[2019-02-08 06:32] LABS: CHLORIDE 107 mEq/L (98-107)
[2019-02-08] MEDS: INSULIN LISPRO 100 UNITS/ML SUBCUT SCH ×4 (07:35→21:00)
[2019-02-08 08:00] VITALS: BP 143/78
[2019-02-08] MEDS: ASCORBIC ACID 250 MG TABLET PO SCH ×2 (08:06→22:08)
[2019-02-08] MEDS: ZINC SULFATE 220 MG ( 50 ) CAPSULE PO SCH (08:07)
[2019-02-08] MEDS: FINASTERIDE 5MG TABLET PO SCH (08:07)
[2019-02-08] MEDS: PIOGLITAZONE 15MG TABLET PO SCH (08:07)
[2019-02-08] MEDS: METOPROLOL TARTRATE 50MG TABLET PO SCH ×2 (08:07→22:08)
[2019-02-08] MEDS: VENLAFAXINE HCL 37.5MG TABLET PO SCH ×2 (08:08→22:08)
[2019-02-08] MEDS: MULTIVITAMINS,THER W-MINERALS TABLET PO SCH (08:08)
[2019-02-08] MEDS: DOCUSATE SODIUM 100MG CAPSULE PO SCH ×2 (08:08→16:54)
[2019-02-08] MEDS: DILTIAZEM HCL 180MG CAPSULE CD 24HR PO SCH (08:09)
[2019-02-08 10:53] LABS: PLATELET ESTIMATE SLIGHTLY INCREASED
[2019-02-08 20:00] VITALS: BP 136/70
[2019-02-09] MEDS: IPRATROPIUM BROMIDE (0.02%) 0.5MG/2.5ML NEB HHN SCH ×3 (02:05→20:32)
[2019-02-09] MEDS: CEFAZOLIN 1000MG PREMIX 50 ML IV SCH ×2 (05:56→17:33)
[2019-02-09] MEDS: BLOOD SUGAR DIAGNOSTIC STRIP TEST SCH ×4 (05:56→21:32)
[2019-02-09] MEDS: ENOXAPARIN 30MG/0.3ML SYR SUBCUT SCH ×2 (05:58→17:34)
[2019-02-09] MEDS: INSULIN LISPRO 100 UNITS/ML SUBCUT SCH ×4 (06:56→21:00)
[2019-02-09 08:14] VITALS: BP 151/77
[2019-02-09] MEDS: DOCUSATE SODIUM 100MG CAPSULE PO SCH ×2 (08:38→17:33)
[2019-02-09] MEDS: ZINC SULFATE 220 MG ( 50 ) CAPSULE PO SCH (08:38)
[2019-02-09] MEDS: PIOGLITAZONE 15MG TABLET PO SCH (08:38)
[2019-02-09] MEDS: FINASTERIDE 5MG TABLET PO SCH (08:38)
[2019-02-09] MEDS: ASCORBIC ACID 250 MG TABLET PO SCH ×2 (08:38→21:32)
[2019-02-09] MEDS: METOPROLOL TARTRATE 50MG TABLET PO SCH ×2 (08:38→21:32)
[2019-02-09] MEDS: MULTIVITAMINS,THER W-MINERALS TABLET PO SCH (08:39)
[2019-02-09] MEDS: VENLAFAXINE HCL 37.5MG TABLET PO SCH ×2 (08:39→21:32)
[2019-02-09] MEDS: DILTIAZEM HCL 180MG CAPSULE CD 24HR PO SCH (08:39)
[2019-02-09] MEDS ORDERED: LIDOCAINE HCL/EPINEPHRINE 1%-EPI 1:100,000 20 ML VIAL INFIL ONE (11:00)
[2019-02-09 20:00] VITALS: BP 142/64
[2019-02-10] MEDS: IPRATROPIUM BROMIDE (0.02%) 0.5MG/2.5ML NEB HHN SCH ×4 (01:09→22:16)
[2019-02-10] MEDS: BLOOD SUGAR DIAGNOSTIC STRIP TEST SCH ×4 (06:05→21:00)
[2019-02-10] MEDS: ENOXAPARIN 30MG/0.3ML SYR SUBCUT SCH ×2 (06:05→17:50)
[2019-02-10] MEDS: CEFAZOLIN 1000MG PREMIX 50 ML IV SCH ×2 (06:05→17:47)
[2019-02-10] MEDS: INSULIN LISPRO 100 UNITS/ML SUBCUT SCH ×4 (06:18→21:00)
[2019-02-10 08:00] VITALS: BP 148/75
[2019-02-10] MEDS: ZINC SULFATE 220 MG ( 50 ) CAPSULE PO SCH (09:49)
[2019-02-10] MEDS: FINASTERIDE 5MG TABLET PO SCH (09:49)
[2019-02-10] MEDS: DOCUSATE SODIUM 100MG CAPSULE PO SCH ×2 (09:52→17:00)
[2019-02-10] MEDS: VENLAFAXINE HCL 37.5MG TABLET PO SCH ×2 (09:52→22:03)
[2019-02-10] MEDS: ASCORBIC ACID 250 MG TABLET PO SCH ×2 (09:53→22:04)
[2019-02-10] MEDS: MULTIVITAMINS,THER W-MINERALS TABLET PO SCH (09:53)
[2019-02-10] MEDS: PIOGLITAZONE 15MG TABLET PO SCH (09:53)
[2019-02-10] MEDS: DILTIAZEM HCL 120MG CAPSULE CD 24HR PO SCH (09:53)
[2019-02-10] MEDS: METOPROLOL TARTRATE 50MG TABLET PO SCH ×2 (09:53→22:04)
[2019-02-10 20:00] VITALS: BP 144/77
[2019-02-11] MEDS: IPRATROPIUM BROMIDE (0.02%) 0.5MG/2.5ML NEB HHN SCH ×4 (01:56→22:02)
[2019-02-11] MEDS: BLOOD SUGAR DIAGNOSTIC STRIP TEST SCH ×4 (05:42→21:54)
[2019-02-11] MEDS: CEFAZOLIN 1000MG PREMIX 50 ML IV SCH ×2 (05:42→18:15)
[2019-02-11] MEDS: ENOXAPARIN 30MG/0.3ML SYR SUBCUT SCH ×2 (05:42→18:15)
[2019-02-11] MEDS: INSULIN LISPRO 100 UNITS/ML SUBCUT SCH ×4 (05:49→21:00)
[2019-02-11 08:00] VITALS: BP 148/57
[2019-02-11] MEDS: DOCUSATE SODIUM 100MG CAPSULE PO SCH ×2 (09:00→17:00)
[2019-02-11] MEDS: FINASTERIDE 5MG TABLET PO SCH (09:36)
[2019-02-11] MEDS: METOPROLOL TARTRATE 50MG TABLET PO SCH ×2 (09:36→21:53)
[2019-02-11] MEDS: VENLAFAXINE HCL 37.5MG TABLET PO SCH ×2 (09:36→21:53)
[2019-02-11] MEDS: DILTIAZEM HCL 120MG CAPSULE CD 24HR PO SCH (09:36)
[2019-02-11] MEDS: ZINC SULFATE 220 MG ( 50 ) CAPSULE PO SCH (09:36)
[2019-02-11] MEDS: MULTIVITAMINS,THER W-MINERALS TABLET PO SCH (09:37)
[2019-02-11] MEDS: ASCORBIC ACID 250 MG TABLET PO SCH ×2 (09:37→21:53)
[2019-02-11] MEDS: PIOGLITAZONE 15MG TABLET PO SCH (09:37)
[2019-02-11 20:00] VITALS: BP 155/72
[2019-02-12] MEDS: IPRATROPIUM BROMIDE (0.02%) 0.5MG/2.5ML NEB HHN SCH ×4 (02:06→21:05)
[2019-02-12] MEDS: CEFAZOLIN 1000MG PREMIX 50 ML IV SCH (05:29)
[2019-02-12] MEDS: BLOOD SUGAR DIAGNOSTIC STRIP TEST SCH ×4 (05:29→21:52)
[2019-02-12] MEDS: ENOXAPARIN 30MG/0.3ML SYR SUBCUT SCH ×2 (05:29→17:28)
[2019-02-12] MEDS: INSULIN LISPRO 100 UNITS/ML SUBCUT SCH ×4 (07:18→21:00)
[2019-02-12 08:00] VITALS: BP 158/70
[2019-02-12] MEDS: ZINC SULFATE 220 MG ( 50 ) CAPSULE PO SCH (08:48)
[2019-02-12] MEDS: ASCORBIC ACID 250 MG TABLET PO SCH ×2 (08:48→21:53)
[2019-02-12] MEDS: VENLAFAXINE HCL 37.5MG TABLET PO SCH ×2 (08:49→21:53)
[2019-02-12] MEDS: DOCUSATE SODIUM 100MG CAPSULE PO SCH ×2 (08:49→17:00)
[2019-02-12] MEDS: MULTIVITAMINS,THER W-MINERALS TABLET PO SCH (08:49)
[2019-02-12] MEDS: FINASTERIDE 5MG TABLET PO SCH (08:51)
[2019-02-12] MEDS: DILTIAZEM HCL 120MG CAPSULE CD 24HR PO SCH (08:51)
[2019-02-12] MEDS: METOPROLOL TARTRATE 50MG TABLET PO SCH ×2 (08:51→21:53)
[2019-02-12] MEDS: PIOGLITAZONE 15MG TABLET PO SCH (08:51)
[2019-02-12] MEDS: LOSARTAN POTASSIUM 25 MG TABLET PO SCH (13:38)
[2019-02-12 20:00] VITALS: BP 143/73
[2019-02-13] MEDS: IPRATROPIUM BROMIDE (0.02%) 0.5MG/2.5ML NEB HHN SCH ×3 (01:01→13:35)
[2019-02-13] MEDS: ENOXAPARIN 30MG/0.3ML SYR SUBCUT SCH (05:30)
[2019-02-13] MEDS: BLOOD SUGAR DIAGNOSTIC STRIP TEST SCH ×2 (06:32→12:12)
[2019-02-13] MEDS: INSULIN LISPRO 100 UNITS/ML SUBCUT SCH ×2 (06:33→12:12)
[2019-02-13 08:00] VITALS: BP 162/88
[2019-02-13] MEDS: ZINC SULFATE 220 MG ( 50 ) CAPSULE PO SCH (08:43)
[2019-02-13] MEDS: PIOGLITAZONE 15MG TABLET PO SCH (08:43)
[2019-02-13] MEDS: VENLAFAXINE HCL 37.5MG TABLET PO SCH (08:43)
[2019-02-13] MEDS: METOPROLOL TARTRATE 50MG TABLET PO SCH (08:43)
[2019-02-13] MEDS: LOSARTAN POTASSIUM 25 MG TABLET PO SCH (08:43)
[2019-02-13] MEDS: DILTIAZEM HCL 120MG CAPSULE CD 24HR PO SCH (08:43)
[2019-02-13] MEDS: FINASTERIDE 5MG TABLET PO SCH (08:43)
[2019-02-13] MEDS: ASCORBIC ACID 250 MG TABLET PO SCH (08:44)
[2019-02-13] MEDS: MULTIVITAMINS,THER W-MINERALS TABLET PO SCH (08:44)
[2019-02-13] MEDS: DOCUSATE SODIUM 100MG CAPSULE PO SCH (08:46)
[2019-02-13 12:40] VITALS: BP 148/73
== END 2019-02-13 15:20 | disposition home health service (06) | DRG 557 ==
PROVIDERS: ADMIT Psychiatry & Neurology Neurology; ATTEND Family Medicine
DX: M62.82 Rhabdomyolysis (principal); A41.9 Sepsis, unspecified organism; F33.1 Major depressive disorder, recurrent, moderate; J98.11 Atelectasis; N39.0 Urinary tract infection, site not specified; E66.01 Morbid (severe) obesity due to excess calories; I11.0 Hypertensive heart disease with heart failure; I50.9 Heart failure, unspecified; E78.5 Hyperlipidemia, unspecified; G89.29 Other chronic pain; M54.9 Dorsalgia, unspecified; D64.9 Anemia, unspecified; E87.6 Hypokalemia; R29.6 Repeated falls; B96.20 Unspecified Escherichia coli [E. coli] as the cause of diseases classified elsewhere; M54.2 Cervicalgia; F15.10 Other stimulant abuse, uncomplicated; R15.9 Full incontinence of feces; L89.90 Pressure ulcer of unspecified site, unspecified stage; E11.9 Type 2 diabetes mellitus without complications; N39.41 Urge incontinence; K59.00 Constipation, unspecified; G47.30 Sleep apnea, unspecified; Z90.49 Acquired absence of other specified parts of digestive tract; Z91.19 Patient's noncompliance with other medical treatment and regimen; Z88.7 Allergy status to serum and vaccine; Z68.33 Body mass index [BMI] 33.0-33.9, adult; Z79.84 Long term (current) use of oral hypoglycemic drugs; Z79.899 Other long term (current) drug therapy
CPT/HCPCS: 36415; 71045; 80048; 82550; 82962; 84134; 87077; 87186; 87804; 93005; 93306; 94640; 97110; 97116; 97150; 97163; 97166; 97530; 97535; A6261; C1893; J0690; J0696; J1650; J1815; J2185; J3490; J7040; J7050; A5200

== ENCOUNTER 2019-10-01 20:48 | Inpatient (IN) | payer MEDICARE, OTHER ==
[~2019-10-01] VITALS: Ht 175.3 cm; Wt 110.7 kg
[~2019-10-01 20:48] MED LIST changes: -ECON15CR11 TP; +ECON15CR13 TP; -SIMV5TAB53 PO; +SIMV5TAB58 PO
[2019-10-01] MEDS ORDERED: SODIUM CHLORIDE 0.9% 1000ML BAG (SEPSIS BOLUS) IV ONE (21:00)
[2019-10-01] MEDS ORDERED: LEVOFLOXACIN 750MG PREMIX 150 ML IV ONE (21:00)
[2019-10-01] MEDS ORDERED: ACETAMINOPHEN 325MG TABLET PO ONE (21:15)
[2019-10-01 21:17] LABS: BG BASE EXCESS 2.1 mmol/L (-2.0-2.0); BG CARBOXYHEMOGLOBIN 1.2 % (0.5-1.5); BG DEOXYHEMOGLOBIN 6.9 % (0.0-5.0); BG FRACTION INSPIRED OXYGEN 36; BG HCO3 ACT 27.3 mmol/L (22.0-26.0); BG METHEMOGLOBIN 0.3 % (0.0-1.5); BG OXYHEMOGLOBIN 91.6 % (94.0-97.0); BG PCO2 45.2 mmHg (35.0-45.0); BG PH 7.399 (7.350-7.450); BG PO2 64.6 mmHg (75.0-100.0); BG SAMPLE SITE RIGHT BRACHIAL; BG VENT MODE NASAL CANNULA
[2019-10-01 21:35] LABS: CHLORIDE 99 mEq/L (98-107)
[2019-10-01 21:36] LABS: BASOPHILS % 0.4 % (0.0-2.0); HEMATOCRIT. 27.9 % (42.0-52.0); HEMOGLOBIN. 9.2 g/dL (14.0-18.0); LYMPHOCYTES % 7.3 % (20.0-50.0); MEAN CORPUSCULAR HEMOGLOBIN 28.2 pg (28.0-32.0); MEAN CORPUSCULAR VOLUME 85.4 fL (80.0-94.0); MEAN PLATELET VOLUME 7.9 fl (7.4-10.4); MONOCYTES % 6.2 % (2.0-8.0); NEUTROPHILS % 84.1 % (40.0-76.0); PLATELET 258 x1000/uL (130-400); RED BLOOD CELL COUNT 3.27 mill/uL (4.7-6.1); RED CELL DISTRIBUTION WIDTH 14.6 % (11.6-14.6)
[2019-10-01 21:45] LABS: PARTIAL THROMBOPLASTIN TIME 35.7 sec (23.4-31.0); PROTHROMBIN TIME 10.2 sec (9.6-11.0)
[2019-10-01 22:28] LABS: CLARITY URINE CLEAR (CLEAR); COLOR URINE YELLOW (YELLOW); KETONES URINE NEGATIVE (NEGATIVE); LEUKOCYTE ESTERASE URINE TRACE (NEGATIVE); NITRITE URINE POSITIVE (NEGATIVE); OCCULT BLOOD URINE TRACE (NEGATIVE); PH URINE 6.5 (4.5-8.0); PROTEIN URINE NEGATIVE (NEGATIVE); SPECIFIC GRAVITY URINE 1.008 (1.005-1.030); UROBILINOGEN URINE 0.2 E.U./dL (0.2-1.0)
[2019-10-01] MEDS ORDERED: IPRATROPIUM/ALBUTEROL 0.5-3(2.5)MG/3ML NEB NEB PRN (22:30)
[2019-10-01] MEDS ORDERED: KETOROLAC 15MG/ML VIAL IV PRN (22:30)
[2019-10-01] MEDS ORDERED: LEVOFLOXACIN 500MG PREMIX 100 ML IV SCH (22:30)
[2019-10-01] MEDS ORDERED: ACETAMINOPHEN 325MG TABLET PO PRN (22:30)
[2019-10-01] MEDS ORDERED: GUAIFENESIN 200MG/10ML SUGAR FREE UDC PO PRN (22:30)
[2019-10-01] MEDS ORDERED: MAGNESIUM/ALUMINUM HYDROXIDE/SIMETHICONE 30ML UDC PO PRN (22:30)
[2019-10-01] MEDS ORDERED: DEXTROSE 50% WATER 50ML SYRINGE IV PRN (22:30)
[2019-10-01] MEDS ORDERED: ONDANSETRON HCL 4MG/2ML INJ IV PRN (22:30)
[2019-10-01] MEDS ORDERED: NITROGLYCERIN 0.4MG TABLET SL SL PRN (22:30)
[2019-10-01] MEDS ORDERED: DOCUSATE SODIUM 100MG CAPSULE PO PRN (22:30)
[2019-10-01] MEDS ORDERED: OSELTAMIVIR 75MG CAPSULE PO ONE (22:45)
[2019-10-01 22:49] LABS: BG BASE EXCESS -0.9 mmol/L (-2.0-2.0); BG BILEVEL POS AIRWAY PRESSURE 15/5; BG CARBOXYHEMOGLOBIN 0.2 % (0.5-1.5); BG FRACTION INSPIRED OXYGEN 100; BG HCO3 ACT 25.1 mmol/L (22.0-26.0); BG METHEMOGLOBIN 0.3 % (0.0-1.5); BG OXYHEMOGLOBIN 98.5 % (94.0-97.0); BG PCO2 48.2 mmHg (35.0-45.0); BG PH 7.335 (7.350-7.450); BG PO2 269.7 mmHg (75.0-100.0); BG SAMPLE SITE RIGHT RADIAL; BG TOTAL HEMOGLOBIN 9.2 g/dL (12.0-18.0); BG VENT MODE MASK - BIPAP; BG VENT RATE 14 set
[2019-10-01 22:57] LABS: T4 FREE 1.21 ng/dL (0.76-1.46)
[2019-10-01] MEDS ORDERED: NALOXONE HCL 0.4 MG/ML 1ML VIAL IV PRN (23:00)
[2019-10-01] MEDS ORDERED: ASPIRIN 325MG EC TABLET PO ONE (23:00)
[2019-10-01] MEDS ORDERED: PIPERACILLIN/TAZ 3.375G PREMIX 50 ML IV SCH (23:15)
[2019-10-01 23:21] LABS: VITAMIN B12 SERUM 1053 pg/mL (211-911)
[2019-10-01 23:22] LABS: FOLIC ACID (FOLATE) SERUM > 20.00 ng/mL (>5.38)
[2019-10-02] VITALS (12 sets, daily range): BP systolic 105–150; BP diastolic 63–98
[2019-10-02] MEDS ORDERED: FUROSEMIDE 40MG/4ML VIAL IVP SCH
[2019-10-02] MEDS: BLOOD SUGAR DIAGNOSTIC STRIP TEST SCH ×4 (07:36→21:03)
[2019-10-02] MEDS: INSULIN LISPRO 100 UNITS/ML SUBCUT SCH ×4 (08:00→21:00)
[2019-10-02] MEDS ORDERED: PIPERACILLIN/TAZ 3.375G PREMIX 50 ML IV SCH (08:00)
[2019-10-02] MEDS: IPRATROPIUM/ALBUTEROL 0.5-3(2.5)MG/3ML NEB HHN SCH ×4 (08:30→20:52)
[2019-10-02 08:40] LABS: BG BASE EXCESS 1.1 mmol/L (-2.0-2.0); BG BILEVEL POS AIRWAY PRESSURE 12./6; BG CARBOXYHEMOGLOBIN 0.1 % (0.5-1.5); BG FRACTION INSPIRED OXYGEN 40; BG HCO3 ACT 27.6 mmol/L (22.0-26.0); BG METHEMOGLOBIN 0.3 % (0.0-1.5); BG OXYHEMOGLOBIN 96.6 % (94.0-97.0); BG PCO2 53.1 mmHg (35.0-45.0); BG PH 7.334 (7.350-7.450); BG PO2 104.1 mmHg (75.0-100.0); BG SAMPLE SITE RIGHT RADIAL; BG VENT MODE MASK - BIPAP
[2019-10-02] MEDS: PIPERACILLIN/TAZOBACTAM 3.375 G in DEXT 5% WATER 100 ML IV SCH ×3 (08:52→23:09)
[2019-10-02] MEDS: FUROSEMIDE 40MG/4ML VIAL IVP SCH ×2 (08:53→20:25)
[2019-10-02] MEDS: FAMOTIDINE 20MG TABLET PO SCH (08:53)
[2019-10-02] MEDS: LOSARTAN POTASSIUM 25 MG TABLET PO SCH (08:53)
[2019-10-02] MEDS: AMLODIPINE 10MG TABLET PO SCH (08:53)
[2019-10-02] MEDS: ASPIRIN 325MG EC TABLET PO SCH (08:54)
[2019-10-02] MEDS: ZINC SULFATE 220 MG ( 50 ) CAPSULE PO SCH (08:54)
[2019-10-02] MEDS: ASCORBIC ACID 500 MG TABLET PO SCH ×2 (08:54→20:25)
[2019-10-02] MEDS: ENOXAPARIN 30MG/0.3ML SYR SUBCUT SCH ×2 (08:54→21:04)
[2019-10-02 09:37] LABS: BASOPHILS % 0.4 % (0.0-2.0); EOSINOPHILS % 5.7 % (0.0-5.0); HEMOGLOBIN. 8.8 g/dL (14.0-18.0); LYMPHOCYTES % 7.6 % (20.0-50.0); MEAN CORPUSCULAR HEMOGLOBIN 28.3 pg (28.0-32.0); MEAN CORPUSCULAR VOLUME 86.8 fL (80.0-94.0); MEAN PLATELET VOLUME 7.9 fl (7.4-10.4); MONOCYTES % 9.3 % (2.0-8.0); PLATELET 233 x1000/uL (130-400); RED BLOOD CELL COUNT 3.11 mill/uL (4.7-6.1); RED CELL DISTRIBUTION WIDTH 14.6 % (11.6-14.6)
[2019-10-02 09:43] LABS: CHLORIDE 110 mEq/L (98-107)
[2019-10-02 09:51] LABS: CREATINE KINASE 133 IU/L (39-308)
[2019-10-02 09:53] LABS: CREATINE KINASE MB FRACTION < 1.0 ng/mL (0.5-3.6)
[2019-10-02 10:13] LABS: *AMPHETAMINES SCREEN URINE NEGATIVE (NEGATIVE); *BARBITURATES SCREEN URINE NEGATIVE (NEGATIVE); *BENZODIAZEPINES SCREEN URINE NEGATIVE (NEGATIVE); *COCAINE SCREEN URINE NEGATIVE (NEGATIVE); METHADONE URINE SCREEN NEGATIVE (NEGATIVE)
[2019-10-02 10:14] LABS: CANNABINOID URINE SCREEN NEGATIVE (NEGATIVE); OPIATES URINE SCREEN PRESUMTIVE POSITIVE (NEGATIVE); PHENCYCLIDINE URINE SCREEN NEGATIVE (NEGATIVE)
[2019-10-02 16:15] LABS: CREATINE KINASE 132 IU/L (39-308)
[2019-10-02 16:16] LABS: CREATINE KINASE MB FRACTION < 1.0 ng/mL (0.5-3.6)
[2019-10-02] MEDS: LEVOFLOXACIN 250MG PREMIX 50 ML IV SCH (20:24)
[2019-10-02] MEDS: ZOLPIDEM TARTRATE 5MG TABLET PO PRN (22:21)
[2019-10-03] VITALS (9 sets, daily range): BP systolic 121–169; BP diastolic 45–108
[2019-10-03] MEDS: IPRATROPIUM/ALBUTEROL 0.5-3(2.5)MG/3ML NEB HHN SCH ×6 (00:35→21:51)
[2019-10-03] MEDS: BLOOD SUGAR DIAGNOSTIC STRIP TEST SCH ×4 (07:30→21:21)
[2019-10-03] MEDS: INSULIN LISPRO 100 UNITS/ML SUBCUT SCH ×4 (08:00→21:29)
[2019-10-03] MEDS: PIPERACILLIN/TAZOBACTAM 3.375 G in DEXT 5% WATER 100 ML IV SCH ×3 (09:00→23:01)
[2019-10-03] MEDS: FUROSEMIDE 40MG/4ML VIAL IVP SCH ×2 (10:33→21:20)
[2019-10-03] MEDS: LOSARTAN POTASSIUM 25 MG TABLET PO SCH (10:34)
[2019-10-03] MEDS: ASPIRIN 325MG EC TABLET PO SCH (10:34)
[2019-10-03] MEDS: ZINC SULFATE 220 MG ( 50 ) CAPSULE PO SCH (10:35)
[2019-10-03] MEDS: AMLODIPINE 10MG TABLET PO SCH (10:35)
[2019-10-03] MEDS: ASCORBIC ACID 500 MG TABLET PO SCH ×2 (10:35→21:20)
[2019-10-03] MEDS: FAMOTIDINE 20MG TABLET PO SCH (10:35)
[2019-10-03] MEDS: ENOXAPARIN 30MG/0.3ML SYR SUBCUT SCH ×2 (10:36→21:20)
[2019-10-03] MEDS: LEVOFLOXACIN 250MG PREMIX 50 ML IV SCH (21:21)
[2019-10-03] MEDS: BUDESONIDE 0.5MG/2ML NEB HHN SCH (21:51)
[2019-10-03] MEDS: ZOLPIDEM TARTRATE 5MG TABLET PO PRN (22:59)
[2019-10-04] VITALS (9 sets, daily range): BP systolic 104–154; BP diastolic 47–93
[2019-10-04] MEDS: IPRATROPIUM/ALBUTEROL 0.5-3(2.5)MG/3ML NEB HHN SCH ×7 (04:00→20:15)
[2019-10-04] MEDS: CLONIDINE 0.1MG TABLET PO PRN (06:28)
[2019-10-04] MEDS: INSULIN LISPRO 100 UNITS/ML SUBCUT SCH ×4 (08:00→20:37)
[2019-10-04] MEDS: ENOXAPARIN 30MG/0.3ML SYR SUBCUT SCH ×2 (08:14→20:36)
[2019-10-04] MEDS: ZINC SULFATE 220 MG ( 50 ) CAPSULE PO SCH (08:14)
[2019-10-04] MEDS: PIPERACILLIN/TAZOBACTAM 3.375 G in DEXT 5% WATER 100 ML IV SCH ×3 (08:14→23:10)
[2019-10-04] MEDS: ASPIRIN 325MG EC TABLET PO SCH (08:14)
[2019-10-04] MEDS: FAMOTIDINE 20MG TABLET PO SCH (08:14)
[2019-10-04] MEDS: FUROSEMIDE 40MG/4ML VIAL IVP SCH ×2 (08:14→20:37)
[2019-10-04] MEDS: ASCORBIC ACID 500 MG TABLET PO SCH ×2 (08:14→20:37)
[2019-10-04] MEDS: BLOOD SUGAR DIAGNOSTIC STRIP TEST SCH ×4 (08:15→20:37)
[2019-10-04] MEDS: BUDESONIDE 0.5MG/2ML NEB HHN SCH (08:50)
[2019-10-04] MEDS: AMLODIPINE 10MG TABLET PO SCH (09:44)
[2019-10-04] MEDS: LOSARTAN POTASSIUM 25 MG TABLET PO SCH (09:44)
[2019-10-04] MEDS: LEVOFLOXACIN 250MG PREMIX 50 ML IV SCH (20:45)
[2019-10-04] MEDS: ZOLPIDEM TARTRATE 5MG TABLET PO PRN (23:10)
[2019-10-05] VITALS (11 sets, daily range): BP systolic 100–175; BP diastolic 50–96
[2019-10-05] MEDS: IPRATROPIUM/ALBUTEROL 0.5-3(2.5)MG/3ML NEB HHN SCH ×3 (00:50→12:00)
[2019-10-05] MEDS: CLONIDINE 0.1MG TABLET PO PRN (03:18)
[2019-10-05] MEDS: BLOOD SUGAR DIAGNOSTIC STRIP TEST SCH ×3 (07:36→17:30)
[2019-10-05] MEDS: INSULIN LISPRO 100 UNITS/ML SUBCUT SCH ×4 (08:00→20:54)
[2019-10-05] MEDS: PIPERACILLIN/TAZOBACTAM 3.375 G in DEXT 5% WATER 100 ML IV SCH ×2 (08:07→19:02)
[2019-10-05] MEDS: FUROSEMIDE 40MG/4ML VIAL IVP SCH ×2 (08:08→20:19)
[2019-10-05] MEDS: ASCORBIC ACID 500 MG TABLET PO SCH ×2 (08:08→20:19)
[2019-10-05] MEDS: FAMOTIDINE 20MG TABLET PO SCH (08:08)
[2019-10-05] MEDS: ENOXAPARIN 30MG/0.3ML SYR SUBCUT SCH ×2 (08:08→20:18)
[2019-10-05] MEDS: LOSARTAN POTASSIUM 25 MG TABLET PO SCH (08:08)
[2019-10-05] MEDS: AMLODIPINE 10MG TABLET PO SCH (08:09)
[2019-10-05] MEDS: ZINC SULFATE 220 MG ( 50 ) CAPSULE PO SCH (08:09)
[2019-10-05] MEDS: ASPIRIN 325MG EC TABLET PO SCH (08:09)
[2019-10-05] MEDS: BUDESONIDE 0.5MG/2ML NEB HHN SCH (08:21)
[2019-10-05] MEDS: LEVOFLOXACIN 250MG PREMIX 50 ML IV SCH (20:19)
== END 2019-10-05 21:15 | DRG 871 ==
LOC: ER 20:48 → 5WST 22:19 → SUPCPDRO 22:25 → ENRESERV 23:35 → 5EST 10-02 03:59
PROVIDERS: ADMIT Internal Medicine; ATTEND Internal Medicine
PROC: 5A09357 Assistance with Respiratory Ventilation, Less than 24 Consecutive Hours, Continuous Positive Airway Pressure (ICD-10-PCS; principal; 2019-10-01)
DX: A41.9 Sepsis, unspecified organism (principal); I50.43 Acute on chronic combined systolic (congestive) and diastolic (congestive) heart failure; J69.0 Pneumonitis due to inhalation of food and vomit; J96.01 Acute respiratory failure with hypoxia; N17.0 Acute kidney failure with tubular necrosis; G92 Toxic encephalopathy; J96.02 Acute respiratory failure with hypercapnia; E66.2 Morbid (severe) obesity with alveolar hypoventilation; E87.1 Hypo-osmolality and hyponatremia; N39.0 Urinary tract infection, site not specified; E87.2 Acidosis; D63.8 Anemia in other chronic diseases classified elsewhere; E83.51 Hypocalcemia; T40.4X1A Poisoning by other synthetic narcotics, accidental (unintentional), initial encounter; T40.2X1A Poisoning by other opioids, accidental (unintentional), initial encounter; Y92.89 Other specified places as the place of occurrence of the external cause; E11.9 Type 2 diabetes mellitus without complications; G89.4 Chronic pain syndrome; R26.9 Unspecified abnormalities of gait and mobility; I11.0 Hypertensive heart disease with heart failure; I27.29 Other secondary pulmonary hypertension; M48.061 Spinal stenosis, lumbar region without neurogenic claudication; Z93.1 Gastrostomy status; Z79.899 Other long term (current) drug therapy; Z90.49 Acquired absence of other specified parts of digestive tract; Z88.7 Allergy status to serum and vaccine; Z71.3 Dietary counseling and surveillance; Z68.36 Body mass index [BMI] 36.0-36.9, adult
CPT/HCPCS: 36415; 36600; 71045; 80061; 80305; 81003; 82375; 82550; 82553; 82607; 82746; 82805; 82962; 83036; 83540; 83550; 83605; 83880; 84134; 84145; 84439; 84443; 84484; 86850; 86900; 87804; 92523; 92610; 93005; 93306; 93970; 94640; 94660; 96365; 96375; 97116; 97162; 97166; 99291; A6261; J1650; J1815; J1940; J1956; J2543; J7030; J7060; J7620; J7626

== ENCOUNTER 2019-10-05 21:17 | Inpatient (IN) | payer MEDICARE ==
[~2019-10-05] VITALS: Ht 175.3 cm; Wt 110.7 kg
[2019-10-05 22:00] VITALS: BP 149/80
[2019-10-05] MEDS ORDERED: GUAIFENESIN 200MG/10ML SUGAR FREE UDC PO PRN (23:30)
[2019-10-05] MEDS ORDERED: CLONIDINE 0.1MG TABLET PO PRN (23:30)
[2019-10-05] MEDS ORDERED: IPRATROPIUM/ALBUTEROL 0.5-3(2.5)MG/3ML NEB HHN PRN (23:30)
[2019-10-05] MEDS ORDERED: NALOXONE HCL 0.4 MG/ML 1ML VIAL IV PRN (23:30)
[2019-10-05] MEDS ORDERED: DOCUSATE SODIUM 100MG CAPSULE PO PRN (23:30)
[2019-10-05] MEDS ORDERED: ENOXAPARIN 30MG/0.3ML SYR SUBCUT SCH (23:30)
[2019-10-05] MEDS ORDERED: ONDANSETRON HCL 4MG/2ML INJ IV PRN (23:30)
[2019-10-05] MEDS ORDERED: MAGNESIUM/ALUMINUM HYDROXIDE/SIMETHICONE 30ML UDC PO PRN (23:30)
[2019-10-05] MEDS ORDERED: DEXTROSE 50% WATER 50ML SYRINGE IV PRN (23:30)
[2019-10-05] MEDS ORDERED: NITROGLYCERIN 0.4MG TABLET SL SL PRN (23:30)
[2019-10-05] MEDS ORDERED: ACETAMINOPHEN 325MG TABLET PO PRN (23:30)
[2019-10-05] MEDS ORDERED: ZOLPIDEM TARTRATE 5MG TABLET PO PRN (23:30)
[2019-10-05] MEDS ORDERED: FUROSEMIDE 40MG/4ML VIAL IVP SCH (23:30)
[2019-10-05] MEDS ORDERED: KETOROLAC 15MG/ML VIAL IV PRN (23:30)
[2019-10-06] MEDS ORDERED: IPRATROPIUM/ALBUTEROL 0.5-3(2.5)MG/3ML NEB HHN SCH
[2019-10-06] MEDS ORDERED: PIPERACILLIN/TAZOBACTAM 3.375 G in DEXT 5% WATER 100 ML IV SCH (04:00)
[2019-10-06] MEDS: PIPERACILLIN/TAZOBACTAM 3.375 G in DEXT 5% WATER 100 ML IV SCH ×2 (04:58→11:56)
[2019-10-06] MEDS: INSULIN LISPRO 100 UNITS/ML SUBCUT SCH ×2 (06:17→12:27)
[2019-10-06] MEDS: BLOOD SUGAR DIAGNOSTIC STRIP TEST SCH ×2 (06:17→11:56)
[2019-10-06 07:38] LABS: EOSINOPHILS % 8.1 % (0.0-5.0); HEMATOCRIT. 34.6 % (42.0-52.0); HEMOGLOBIN. 11.5 g/dL (14.0-18.0); LYMPHOCYTES % 18.2 % (20.0-50.0); MEAN CORPUSCULAR VOLUME 83.9 fL (80.0-94.0); MEAN PLATELET VOLUME 7.4 fl (7.4-10.4); MONOCYTES % 13.8 % (2.0-8.0); NEUTROPHILS % 58.9 % (40.0-76.0); PLATELET 413 x1000/uL (130-400); RED BLOOD CELL COUNT 4.12 mill/uL (4.7-6.1); RED CELL DISTRIBUTION WIDTH 14.4 % (11.6-14.6)
[2019-10-06 08:00] VITALS: BP 129/86
[2019-10-06] MEDS ORDERED: ASCORBIC ACID 500 MG TABLET PO SCH (09:00)
[2019-10-06] MEDS ORDERED: LOSARTAN POTASSIUM 25 MG TABLET PO SCH (09:00)
[2019-10-06] MEDS ORDERED: BUDESONIDE 0.5MG/2ML NEB HHN SCH (09:00)
[2019-10-06] MEDS ORDERED: FAMOTIDINE 20MG TABLET PO SCH (09:00)
[2019-10-06] MEDS ORDERED: AMLODIPINE 10MG TABLET PO SCH (09:00)
[2019-10-06] MEDS ORDERED: ZINC SULFATE 220 MG ( 50 ) CAPSULE PO SCH (09:00)
[2019-10-06] MEDS ORDERED: ENOXAPARIN 30MG/0.3ML SYR SUBCUT SCH (09:00)
[2019-10-06] MEDS ORDERED: FUROSEMIDE 40MG/4ML VIAL IVP SCH (09:00)
[2019-10-06] MEDS ORDERED: ASPIRIN 325MG EC TABLET PO SCH (09:00)
[2019-10-06 11:24] LABS: CHLORIDE 99 mEq/L (98-107)
[2019-10-06] MEDS ORDERED: POTASSIUM CHLORIDE 20MEQ TABLET SR PO SCH (12:15)
[2019-10-06] MEDS ORDERED: POTASSIUM CHLORIDE INJ 40 MEQ in DEXT 5% WATER 250 ML IV NR ×2 (12:30→14:00)
[2019-10-06] MEDS ORDERED: DILTIAZEM HCL 5MG/ML 5ML VIAL IV PRN (13:00)
[2019-10-06 14:09] VITALS: BP 129/86
[2019-10-06] MEDS ORDERED: DILTIAZEM HCL 60MG TABLET PO SCH (18:00)
[2019-10-06] MEDS ORDERED: METOPROLOL TARTRATE 50MG TABLET PO SCH (21:00)
[2019-10-06] MEDS ORDERED: LEVOFLOXACIN 250MG PREMIX 50 ML IV SCH (21:00)
[2019-10-07] MEDS ORDERED: FUROSEMIDE 40MG/4ML VIAL IVP SCH (09:00)
[2019-10-07] MEDS ORDERED: ASPIRIN 81MG EC TABLET PO SCH (09:00)
== END 2019-10-06 14:34 | disposition short-term general hospital (02) | DRG 91 ==
PROVIDERS: ADMIT Physical Medicine & Rehabilitation Spinal Cord Injury Medicine; ATTEND Internal Medicine
DX: G92 Toxic encephalopathy (principal); J18.9 Pneumonia, unspecified organism; A41.9 Sepsis, unspecified organism; J96.02 Acute respiratory failure with hypercapnia; I50.41 Acute combined systolic (congestive) and diastolic (congestive) heart failure; J96.01 Acute respiratory failure with hypoxia; J44.0 Chronic obstructive pulmonary disease with (acute) lower respiratory infection; N39.0 Urinary tract infection, site not specified; I48.92 Unspecified atrial flutter; F11.20 Opioid dependence, uncomplicated; N17.9 Acute kidney failure, unspecified; E87.2 Acidosis; E87.1 Hypo-osmolality and hyponatremia; T40.2X1A Poisoning by other opioids, accidental (unintentional), initial encounter; G89.4 Chronic pain syndrome; I11.0 Hypertensive heart disease with heart failure; R53.81 Other malaise; R26.9 Unspecified abnormalities of gait and mobility; M48.061 Spinal stenosis, lumbar region without neurogenic claudication; E11.9 Type 2 diabetes mellitus without complications; E66.01 Morbid (severe) obesity due to excess calories; E87.6 Hypokalemia; R00.0 Tachycardia, unspecified; D63.8 Anemia in other chronic diseases classified elsewhere; E83.51 Hypocalcemia; D72.1 Eosinophilia; Z93.0 Tracheostomy status; Z93.1 Gastrostomy status; Z88.7 Allergy status to serum and vaccine; Z79.899 Other long term (current) drug therapy; Z79.82 Long term (current) use of aspirin; Z83.3 Family history of diabetes mellitus; Y92.89 Other specified places as the place of occurrence of the external cause; Z68.36 Body mass index [BMI] 36.0-36.9, adult
CPT/HCPCS: 36415; 80048; 82962; 83735; 84134; 92523; 93005; 97162; 97166; 97535; J1650; J1815; J1885; J1956; J2543; J3480; J7040; J7060

== ENCOUNTER 2019-10-06 14:55 | Inpatient (IN) | payer MEDICARE ==
[~2019-10-06] VITALS: Ht 175.3 cm; Wt 93.9 kg
[2019-10-06 16:00] VITALS: BP_SYST 144; BP_DIAS 66; BP_DIAS 79
[2019-10-06] MEDS ORDERED: KETOROLAC 15MG/ML VIAL IV PRN (16:30)
[2019-10-06] MEDS ORDERED: ONDANSETRON HCL 4MG/2ML INJ IV PRN (16:30)
[2019-10-06] MEDS ORDERED: CLONIDINE 0.1MG TABLET PO PRN (16:30)
[2019-10-06] MEDS ORDERED: DEXTROSE 50% WATER 50ML SYRINGE IV PRN (16:30)
[2019-10-06] MEDS ORDERED: ACETAMINOPHEN 325MG TABLET PO PRN (16:30)
[2019-10-06] MEDS: BLOOD SUGAR DIAGNOSTIC STRIP TEST SCH ×2 (17:29→21:28)
[2019-10-06] MEDS: INSULIN LISPRO 100 UNITS/ML SUBCUT SCH ×2 (17:30→22:01)
[2019-10-06] MEDS: DILTIAZEM HCL 60MG TABLET PO SCH (17:35)
[2019-10-06] MEDS: DILTIAZEM HCL 5MG/ML 5ML VIAL IV PRN ×2 (18:13→21:36)
[2019-10-06 21:46] VITALS: BP 133/71
[2019-10-06] MEDS: ZOLPIDEM TARTRATE 5MG TABLET PO PRN (22:50)
[2019-10-07] VITALS (13 sets, daily range): BP systolic 79–150; BP diastolic 43–87
[2019-10-07] MEDS: DILTIAZEM HCL 60MG TABLET PO SCH ×2 (00:01→06:41)
[2019-10-07] MEDS: DILTIAZEM HCL 5MG/ML 5ML VIAL IV PRN ×3 (01:23→07:58)
[2019-10-07] MEDS ORDERED: IPRATROPIUM BROMIDE (0.02%) 0.5MG/2.5ML NEB HHN PRN (02:45)
[2019-10-07] MEDS: GUAIFENESIN 200MG/10ML SUGAR FREE UDC PO PRN ×2 (03:18→21:24)
[2019-10-07] MEDS ORDERED: POTASSIUM CHLORIDE 20MEQ TABLET SR PO SCH (03:20)
[2019-10-07] MEDS: POTASSIUM CHLORIDE INJ 40 MEQ in DEXT 5% WATER 250 ML IV SCH ×2 (05:11→07:58)
[2019-10-07] MEDS: AMIODARONE HCL 200 MG TABLET PO SCH ×3 (06:42→22:06)
[2019-10-07] MEDS: BLOOD SUGAR DIAGNOSTIC STRIP TEST SCH ×4 (06:42→21:00)
[2019-10-07] MEDS: FUROSEMIDE 40MG/4ML VIAL IVP SCH (07:59)
[2019-10-07] MEDS: FAMOTIDINE 20MG TABLET PO SCH (08:12)
[2019-10-07] MEDS: ASPIRIN 81MG TABLET PO SCH (08:12)
[2019-10-07] MEDS: LOSARTAN POTASSIUM 25 MG TABLET PO SCH (08:12)
[2019-10-07] MEDS: ZINC SULFATE 220 MG ( 50 ) CAPSULE PO SCH (08:12)
[2019-10-07] MEDS: ENOXAPARIN 30MG/0.3ML SYR SUBCUT SCH ×2 (08:12→20:56)
[2019-10-07] MEDS: AMLODIPINE 10MG TABLET PO SCH (08:12)
[2019-10-07] MEDS: ASCORBIC ACID 500 MG TABLET PO SCH (08:12)
[2019-10-07] MEDS: INSULIN LISPRO 100 UNITS/ML SUBCUT SCH ×4 (09:19→21:00)
[2019-10-07] MEDS ORDERED: MAGNESIUM 1 G PREMIX 100 ML IV NR (11:30)
[2019-10-07] MEDS: DILTIAZEM HCL 90MG TABLET PO SCH ×2 (12:25→17:41)
[2019-10-07] MEDS ORDERED: POTASSIUM CHLORIDE 20MEQ TABLET SR PO NR (16:00)
[2019-10-07 20:14] LABS: HEMATOCRIT. 35.1 % (42.0-52.0); HEMOGLOBIN. 11.6 g/dL (14.0-18.0); MEAN CORPUSCULAR HEMOGLOBIN 28.1 pg (28.0-32.0); MEAN CORPUSCULAR VOLUME 85.2 fL (80.0-94.0); MEAN PLATELET VOLUME 7.4 fl (7.4-10.4); PLATELET 397 x1000/uL (130-400); RED BLOOD CELL COUNT 4.13 mill/uL (4.7-6.1); RED CELL DISTRIBUTION WIDTH 14.8 % (11.6-14.6)
[2019-10-07] MEDS: ZOLPIDEM TARTRATE 5MG TABLET PO PRN (20:55)
[2019-10-07 22:11] LABS: PLATELET ESTIMATE NORMAL
[2019-10-08] VITALS (10 sets, daily range): BP systolic 119–145; BP diastolic 57–97
[2019-10-08] MEDS: DILTIAZEM HCL 90MG TABLET PO SCH ×3 (00:57→12:40)
[2019-10-08] MEDS: AMIODARONE HCL 200 MG TABLET PO SCH ×2 (06:01→13:11)
[2019-10-08 07:24] LABS: HEMATOCRIT. 31.8 % (42.0-52.0); HEMOGLOBIN. 10.7 g/dL (14.0-18.0); MEAN CORPUSCULAR HEMOGLOBIN 28.5 pg (28.0-32.0); MEAN CORPUSCULAR VOLUME 84.8 fL (80.0-94.0); MEAN PLATELET VOLUME 7.5 fl (7.4-10.4); PLATELET 427 x1000/uL (130-400); RED BLOOD CELL COUNT 3.75 mill/uL (4.7-6.1); RED CELL DISTRIBUTION WIDTH 14.5 % (11.6-14.6)
[2019-10-08 07:46] LABS: CHLORIDE 105 mEq/L (98-107)
[2019-10-08] MEDS: ASPIRIN 81MG TABLET PO SCH (08:23)
[2019-10-08] MEDS: ASCORBIC ACID 500 MG TABLET PO SCH (08:23)
[2019-10-08] MEDS: ENOXAPARIN 30MG/0.3ML SYR SUBCUT SCH (08:23)
[2019-10-08] MEDS: FAMOTIDINE 20MG TABLET PO SCH (08:23)
[2019-10-08] MEDS: LOSARTAN POTASSIUM 25 MG TABLET PO SCH (08:23)
[2019-10-08] MEDS: FUROSEMIDE 40MG/4ML VIAL IVP SCH (08:23)
[2019-10-08] MEDS: AMLODIPINE 10MG TABLET PO SCH (08:23)
[2019-10-08] MEDS: ZINC SULFATE 220 MG ( 50 ) CAPSULE PO SCH (08:23)
[2019-10-08] MEDS: INSULIN LISPRO 100 UNITS/ML SUBCUT SCH ×2 (08:24→12:41)
[2019-10-08 10:23] LABS: PLATELET ESTIMATE SLIGHTLY INCREASED
[2019-10-08] MEDS ORDERED: POTASSIUM CHLORIDE 20MEQ TABLET SR PO SCH (11:15)
[2019-10-08] MEDS: BLOOD SUGAR DIAGNOSTIC STRIP TEST SCH (12:46)
== END 2019-10-08 16:28 | DRG 917 ==
LOC: 8WST 14:55 → 3WST 10-07 03:48
PROVIDERS: ADMIT Internal Medicine; ATTEND Internal Medicine
DX: T40.2X1A Poisoning by other opioids, accidental (unintentional), initial encounter (principal); A41.9 Sepsis, unspecified organism; G92 Toxic encephalopathy; J18.9 Pneumonia, unspecified organism; J96.01 Acute respiratory failure with hypoxia; J96.02 Acute respiratory failure with hypercapnia; I50.41 Acute combined systolic (congestive) and diastolic (congestive) heart failure; I48.92 Unspecified atrial flutter; I13.0 Hypertensive heart and chronic kidney disease with heart failure and stage 1 through stage 4 chronic kidney disease, or unspecified chronic kidney disease; J44.0 Chronic obstructive pulmonary disease with (acute) lower respiratory infection; N39.0 Urinary tract infection, site not specified; N17.9 Acute kidney failure, unspecified; F11.20 Opioid dependence, uncomplicated; N18.9 Chronic kidney disease, unspecified; E11.22 Type 2 diabetes mellitus with diabetic chronic kidney disease; E66.01 Morbid (severe) obesity due to excess calories; R26.9 Unspecified abnormalities of gait and mobility; G89.4 Chronic pain syndrome; E87.6 Hypokalemia; E83.42 Hypomagnesemia; I48.91 Unspecified atrial fibrillation; I49.3 Ventricular premature depolarization; M48.061 Spinal stenosis, lumbar region without neurogenic claudication; Y92.89 Other specified places as the place of occurrence of the external cause; Z83.3 Family history of diabetes mellitus; Z87.01 Personal history of pneumonia (recurrent); Z87.891 Personal history of nicotine dependence; Z68.30 Body mass index [BMI] 30.0-30.9, adult; Z93.0 Tracheostomy status; Z88.7 Allergy status to serum and vaccine
CPT/HCPCS: 36415; 80048; 82962; 83735; 93005; 94640; 97116; 97161; J1650; J1815; J1940; J3475; J3480; J3490; J7060

== ENCOUNTER 2019-10-08 16:27 | Inpatient (IN) | payer MEDICARE ==
[~2019-10-08] VITALS: Ht 175.3 cm; Wt 94.8 kg
[2019-10-08 17:20] VITALS: BP 129/70
[2019-10-08] MEDS ORDERED: DEXTROSE 50% WATER 50ML SYRINGE IV PRN (17:30)
[2019-10-08] MEDS ORDERED: CLONIDINE 0.1MG TABLET PO PRN (17:30)
[2019-10-08] MEDS ORDERED: DILTIAZEM HCL 5MG/ML 5ML VIAL IV PRN (17:30)
[2019-10-08] MEDS ORDERED: ONDANSETRON HCL 4MG/2ML INJ IV PRN (17:30)
[2019-10-08] MEDS ORDERED: GUAIFENESIN 200MG/10ML SUGAR FREE UDC PO PRN (18:05)
[2019-10-08] MEDS ORDERED: IPRATROPIUM BROMIDE (0.02%) 0.5MG/2.5ML NEB HHN PRN (18:05)
[2019-10-08 18:26] VITALS: BP 129/70
[2019-10-08 20:00] VITALS: BP 146/64
[2019-10-08] MEDS: ENOXAPARIN 30MG/0.3ML SYR SUBCUT SCH (20:22)
[2019-10-08] MEDS: ACETAMINOPHEN 650MG/20.3ML UDC PO PRN (20:44)
[2019-10-08] MEDS: BLOOD SUGAR DIAGNOSTIC STRIP TEST SCH (21:00)
[2019-10-08] MEDS: FAMOTIDINE 20MG TABLET PO SCH (22:03)
[2019-10-08] MEDS: AMIODARONE HCL 200 MG TABLET PO SCH (22:03)
[2019-10-08] MEDS: INSULIN LISPRO 100 UNITS/ML SUBCUT SCH (22:05)
[2019-10-08] MEDS: ZOLPIDEM TARTRATE 5MG TABLET PO PRN (22:56)
[2019-10-09] MEDS: DILTIAZEM HCL 90MG TABLET PO SCH ×5 (01:17→17:08)
[2019-10-09] MEDS: BLOOD SUGAR DIAGNOSTIC STRIP TEST SCH ×4 (06:15→21:00)
[2019-10-09] MEDS: ENOXAPARIN 30MG/0.3ML SYR SUBCUT SCH ×2 (06:15→17:09)
[2019-10-09] MEDS: AMIODARONE HCL 200 MG TABLET PO SCH ×3 (06:45→22:09)
[2019-10-09] MEDS: INSULIN LISPRO 100 UNITS/ML SUBCUT SCH ×4 (07:28→22:09)
[2019-10-09 07:56] LABS: HEMATOCRIT. 30.8 % (42.0-52.0); HEMOGLOBIN. 10.4 g/dL (14.0-18.0); MEAN CORPUSCULAR HEMOGLOBIN 28.7 pg (28.0-32.0); MEAN CORPUSCULAR VOLUME 85.1 fL (80.0-94.0); MEAN PLATELET VOLUME 7.1 fl (7.4-10.4); PLATELET 443 x1000/uL (130-400); RED BLOOD CELL COUNT 3.62 mill/uL (4.7-6.1); RED CELL DISTRIBUTION WIDTH 14.7 % (11.6-14.6)
[2019-10-09 08:00] VITALS: BP 142/65
[2019-10-09 08:04] LABS: CHLORIDE 106 mEq/L (98-107)
[2019-10-09] MEDS: ZINC SULFATE 220 MG ( 50 ) CAPSULE PO SCH (08:23)
[2019-10-09] MEDS: FUROSEMIDE 40MG/4ML VIAL IVP SCH (08:23)
[2019-10-09] MEDS: ACETAMINOPHEN 650MG/20.3ML UDC PO PRN (08:23)
[2019-10-09] MEDS: ASCORBIC ACID 500 MG TABLET PO SCH (08:23)
[2019-10-09] MEDS: POTASSIUM CHLORIDE 20MEQ TABLET SR PO SCH ×2 (08:23→17:08)
[2019-10-09] MEDS: ASPIRIN 81MG TABLET PO SCH (08:23)
[2019-10-09] MEDS ORDERED: LOSARTAN POTASSIUM 25 MG TABLET PO SCH (09:00)
[2019-10-09] MEDS ORDERED: AMLODIPINE 10MG TABLET PO SCH (09:00)
[2019-10-09 11:40] VITALS: BP 131/76
[2019-10-09] MEDS ORDERED: POTASSIUM CHLORIDE 20MEQ TABLET SR PO SCH (13:15)
[2019-10-09 14:00] VITALS: BP 147/80
[2019-10-09 14:33] LABS: PLATELET ESTIMATE SLIGHTLY INCREASED
[2019-10-09] MEDS: LIDOCAINE 5% PATCH TOP SCH (14:46)
[2019-10-09 17:05] VITALS: BP 133/79
[2019-10-09 20:00] VITALS: BP 156/80
[2019-10-09] MEDS: FAMOTIDINE 20MG TABLET PO SCH (22:13)
[2019-10-09] MEDS: ZOLPIDEM TARTRATE 5MG TABLET PO PRN (22:13)
[2019-10-10] MEDS: DILTIAZEM HCL 90MG TABLET PO SCH ×4 (02:12→17:13)
[2019-10-10 06:09] LABS: HEMATOCRIT. 30.4 % (42.0-52.0); HEMOGLOBIN. 10.3 g/dL (14.0-18.0); MEAN CORPUSCULAR HEMOGLOBIN 28.6 pg (28.0-32.0); MEAN CORPUSCULAR VOLUME 84.6 fL (80.0-94.0); MEAN PLATELET VOLUME 6.9 fl (7.4-10.4); PLATELET 475 x1000/uL (130-400); RED BLOOD CELL COUNT 3.59 mill/uL (4.7-6.1); RED CELL DISTRIBUTION WIDTH 14.9 % (11.6-14.6)
[2019-10-10] MEDS: AMIODARONE HCL 200 MG TABLET PO SCH ×2 (06:09→17:14)
[2019-10-10] MEDS: ENOXAPARIN 30MG/0.3ML SYR SUBCUT SCH ×2 (06:15→17:12)
[2019-10-10] MEDS: BLOOD SUGAR DIAGNOSTIC STRIP TEST SCH ×4 (06:15→21:55)
[2019-10-10 06:21] LABS: CHLORIDE 109 mEq/L (98-107)
[2019-10-10 06:33] LABS: HDL CHOLESTEROL 47 mg/dL (40-59)
[2019-10-10 06:34] LABS: LDL CHOLESTEROL 72 mg/dL (5-100)
[2019-10-10 06:35] LABS: TOTAL IRON BINDING CAPACITY 231 ug/dL (250-450)
[2019-10-10] MEDS: INSULIN LISPRO 100 UNITS/ML SUBCUT SCH ×4 (06:57→21:00)
[2019-10-10] MEDS: KETOROLAC 15MG/ML VIAL IV PRN (07:31)
[2019-10-10 08:01] VITALS: BP 139/76
[2019-10-10] MEDS: FUROSEMIDE 40MG/4ML VIAL IVP SCH (09:09)
[2019-10-10] MEDS: ZINC SULFATE 220 MG ( 50 ) CAPSULE PO SCH (09:10)
[2019-10-10] MEDS: LOSARTAN POTASSIUM 100 MG TABLET PO SCH (09:10)
[2019-10-10] MEDS: ASCORBIC ACID 500 MG TABLET PO SCH (09:10)
[2019-10-10] MEDS: ASPIRIN 81MG TABLET PO SCH (09:10)
[2019-10-10] MEDS: POTASSIUM CHLORIDE 20MEQ TABLET SR PO SCH ×2 (09:11→17:13)
[2019-10-10] MEDS: LIDOCAINE 5% PATCH TOP SCH (09:12)
[2019-10-10 09:30] LABS: VITAMIN B12 SERUM 980 pg/mL (211-911)
[2019-10-10 09:47] LABS: FOLIC ACID (FOLATE) SERUM >20 ng/mL ng/mL (>5.38)
[2019-10-10 12:33] VITALS: BP 146/83
[2019-10-10 13:10] LABS: FERRITIN 140 ng/mL (22-322); PROSTRATE SPECIFIC AG TOTAL 5.51 ng/mL (0.0-4.0)
[2019-10-10] MEDS: MAGNESIUM OXIDE 400MG TABLET PO SCH ×2 (17:14→21:54)
[2019-10-10 20:00] VITALS: BP 154/61
[2019-10-10] MEDS: FAMOTIDINE 20MG TABLET PO SCH (21:54)
[2019-10-10] MEDS: TEMAZEPAM 15MG CAPSULE PO PRN (21:54)
[2019-10-11] MEDS: DILTIAZEM HCL 90MG TABLET PO SCH ×5 (00:53→23:15)
[2019-10-11 04:56] LABS: PLATELET ESTIMATE NORMAL
[2019-10-11] MEDS: ENOXAPARIN 30MG/0.3ML SYR SUBCUT SCH ×2 (05:30→17:01)
[2019-10-11] MEDS: BLOOD SUGAR DIAGNOSTIC STRIP TEST SCH ×4 (06:34→20:24)
[2019-10-11] MEDS: INSULIN LISPRO 100 UNITS/ML SUBCUT SCH ×4 (06:35→20:24)
[2019-10-11 08:00] VITALS: BP 124/79
[2019-10-11] MEDS: ASPIRIN 81MG TABLET PO SCH (08:26)
[2019-10-11] MEDS: LOSARTAN POTASSIUM 100 MG TABLET PO SCH (08:26)
[2019-10-11] MEDS: ZINC SULFATE 220 MG ( 50 ) CAPSULE PO SCH (08:26)
[2019-10-11] MEDS: POTASSIUM CHLORIDE 20MEQ TABLET SR PO SCH ×2 (08:27→16:33)
[2019-10-11] MEDS: ASCORBIC ACID 500 MG TABLET PO SCH (08:27)
[2019-10-11] MEDS: AMIODARONE HCL 200 MG TABLET PO SCH ×2 (08:27→16:33)
[2019-10-11] MEDS: FUROSEMIDE 40MG/4ML VIAL IVP SCH (08:28)
[2019-10-11] MEDS: MAGNESIUM OXIDE 400MG TABLET PO SCH ×2 (08:29→20:21)
[2019-10-11] MEDS: LIDOCAINE 5% PATCH TOP SCH (08:29)
[2019-10-11] MEDS: KETOROLAC 15MG/ML VIAL IV PRN (09:14)
[2019-10-11 20:00] VITALS: BP 121/70
[2019-10-11] MEDS: FAMOTIDINE 20MG TABLET PO SCH (20:21)
[2019-10-11] MEDS: TEMAZEPAM 15MG CAPSULE PO PRN (23:15)
[2019-10-12] MEDS: DILTIAZEM HCL 90MG TABLET PO SCH ×3 (06:10→17:08)
[2019-10-12] MEDS: ENOXAPARIN 30MG/0.3ML SYR SUBCUT SCH ×2 (06:11→17:09)
[2019-10-12] MEDS: BLOOD SUGAR DIAGNOSTIC STRIP TEST SCH ×4 (06:15→21:20)
[2019-10-12] MEDS: INSULIN LISPRO 100 UNITS/ML SUBCUT SCH ×4 (06:15→21:16)
[2019-10-12 08:00] VITALS: BP 149/72
[2019-10-12] MEDS: FUROSEMIDE 40MG/4ML VIAL IVP SCH (08:10)
[2019-10-12] MEDS: AMIODARONE HCL 200 MG TABLET PO SCH ×2 (08:11→17:08)
[2019-10-12] MEDS: ASPIRIN 81MG TABLET PO SCH (08:11)
[2019-10-12] MEDS: ASCORBIC ACID 500 MG TABLET PO SCH (08:11)
[2019-10-12] MEDS: LOSARTAN POTASSIUM 100 MG TABLET PO SCH (08:11)
[2019-10-12] MEDS: POTASSIUM CHLORIDE 20MEQ TABLET SR PO SCH ×2 (08:11→17:08)
[2019-10-12] MEDS: ZINC SULFATE 220 MG ( 50 ) CAPSULE PO SCH (08:11)
[2019-10-12] MEDS: LIDOCAINE 5% PATCH TOP SCH (08:12)
[2019-10-12] MEDS: ACETAMINOPHEN 650MG/20.3ML UDC PO PRN (09:18)
[2019-10-12 10:06] LABS: BASOPHILS % 0.8 % (0.0-2.0); EOSINOPHILS % 3.5 % (0.0-5.0); HEMATOCRIT. 36.7 % (42.0-52.0); HEMOGLOBIN. 12.1 g/dL (14.0-18.0); LYMPHOCYTES % 22.8 % (20.0-50.0); MEAN CORPUSCULAR VOLUME 84.9 fL (80.0-94.0); MEAN PLATELET VOLUME 7.3 fl (7.4-10.4); MONOCYTES % 8.6 % (2.0-8.0); NEUTROPHILS % 64.3 % (40.0-76.0); PLATELET 536 x1000/uL (130-400); RED BLOOD CELL COUNT 4.32 mill/uL (4.7-6.1); RED CELL DISTRIBUTION WIDTH 15.3 % (11.6-14.6)
[2019-10-12 10:27] LABS: PHOSPHORUS 3.7 mg/dL (2.5-4.9)
[2019-10-12 11:15] VITALS: BP 150/82
[2019-10-12 16:55] VITALS: BP 114/81
[2019-10-12 20:00] VITALS: BP 119/63
[2019-10-12] MEDS: TEMAZEPAM 15MG CAPSULE PO PRN (21:15)
[2019-10-12] MEDS: FAMOTIDINE 20MG TABLET PO SCH (21:15)
[2019-10-13] MEDS: DILTIAZEM HCL 90MG TABLET PO SCH ×4 (00:37→17:07)
[2019-10-13] MEDS: ENOXAPARIN 30MG/0.3ML SYR SUBCUT SCH ×2 (05:31→17:08)
[2019-10-13] MEDS: INSULIN LISPRO 100 UNITS/ML SUBCUT SCH ×4 (06:32→21:27)
[2019-10-13] MEDS: BLOOD SUGAR DIAGNOSTIC STRIP TEST SCH ×4 (06:32→20:40)
[2019-10-13 08:00] VITALS: BP 137/65
[2019-10-13] MEDS: LOSARTAN POTASSIUM 100 MG TABLET PO SCH (08:54)
[2019-10-13] MEDS: ASCORBIC ACID 500 MG TABLET PO SCH (08:54)
[2019-10-13] MEDS: POTASSIUM CHLORIDE 20MEQ TABLET SR PO SCH ×2 (08:54→17:07)
[2019-10-13] MEDS: ZINC SULFATE 220 MG ( 50 ) CAPSULE PO SCH (08:54)
[2019-10-13] MEDS: ASPIRIN 81MG TABLET PO SCH (08:54)
[2019-10-13] MEDS: LIDOCAINE 5% PATCH TOP SCH (08:55)
[2019-10-13] MEDS: FUROSEMIDE 40MG/4ML VIAL IVP SCH (08:55)
[2019-10-13] MEDS: AMIODARONE HCL 200 MG TABLET PO SCH ×2 (08:55→17:08)
[2019-10-13 12:40] VITALS: BP 161/61
[2019-10-13 16:22] VITALS: BP 131/78
[2019-10-13 20:00] VITALS: BP 144/76
[2019-10-13] MEDS: FAMOTIDINE 20MG TABLET PO SCH (20:40)
[2019-10-13] MEDS: TEMAZEPAM 15MG CAPSULE PO PRN (20:50)
[2019-10-14] MEDS: DILTIAZEM HCL 90MG TABLET PO SCH ×5 (00:58→23:46)
[2019-10-14] MEDS: ENOXAPARIN 30MG/0.3ML SYR SUBCUT SCH ×2 (05:54→17:08)
[2019-10-14] MEDS: BLOOD SUGAR DIAGNOSTIC STRIP TEST SCH ×4 (05:54→20:17)
[2019-10-14] MEDS: INSULIN LISPRO 100 UNITS/ML SUBCUT SCH ×4 (06:22→20:31)
[2019-10-14 08:00] VITALS: BP 106/73
[2019-10-14] MEDS: FUROSEMIDE 40MG/4ML VIAL IVP SCH (08:43)
[2019-10-14] MEDS: ZINC SULFATE 220 MG ( 50 ) CAPSULE PO SCH (08:43)
[2019-10-14] MEDS: ASPIRIN 81MG TABLET PO SCH (08:43)
[2019-10-14] MEDS: ASCORBIC ACID 500 MG TABLET PO SCH (08:43)
[2019-10-14] MEDS: AMIODARONE HCL 200 MG TABLET PO SCH ×2 (08:44→17:07)
[2019-10-14] MEDS: LOSARTAN POTASSIUM 100 MG TABLET PO SCH (08:45)
[2019-10-14] MEDS: LIDOCAINE 5% PATCH TOP SCH (08:45)
[2019-10-14] MEDS: POTASSIUM CHLORIDE 20MEQ TABLET SR PO SCH ×2 (08:47→17:08)
[2019-10-14 12:20] VITALS: BP 134/65
[2019-10-14] MEDS: LORATADINE 10MG TABLET PO PRN (17:07)
[2019-10-14 20:00] VITALS: BP 110/70
[2019-10-14] MEDS: FAMOTIDINE 20MG TABLET PO SCH (20:17)
[2019-10-14] MEDS: SODIUM CHLORIDE 45ML SPRAY NS PRN (20:17)
[2019-10-14] MEDS: TEMAZEPAM 15MG CAPSULE PO PRN (20:17)
[2019-10-15 04:06] LABS: 25-HYDROXY VITAMIN D3 37 ng/mL (.)
[2019-10-15] MEDS: ENOXAPARIN 30MG/0.3ML SYR SUBCUT SCH ×2 (05:42→17:49)
[2019-10-15] MEDS: BLOOD SUGAR DIAGNOSTIC STRIP TEST SCH ×4 (05:42→21:29)
[2019-10-15] MEDS: DILTIAZEM HCL 90MG TABLET PO SCH ×3 (05:42→17:44)
[2019-10-15] MEDS: SODIUM CHLORIDE 45ML SPRAY NS PRN ×2 (05:55→18:24)
[2019-10-15] MEDS: LORATADINE 10MG TABLET PO PRN (06:03)
[2019-10-15] MEDS: ACETAMINOPHEN 650MG/20.3ML UDC PO PRN (06:35)
[2019-10-15] MEDS: INSULIN LISPRO 100 UNITS/ML SUBCUT SCH ×4 (07:30→21:00)
[2019-10-15 08:00] VITALS: BP 131/76
[2019-10-15] MEDS: POTASSIUM CHLORIDE 20MEQ TABLET SR PO SCH ×2 (08:49→17:43)
[2019-10-15] MEDS: AMIODARONE HCL 200 MG TABLET PO SCH ×2 (08:49→17:43)
[2019-10-15] MEDS: LOSARTAN POTASSIUM 100 MG TABLET PO SCH (08:49)
[2019-10-15] MEDS: ZINC SULFATE 220 MG ( 50 ) CAPSULE PO SCH (08:49)
[2019-10-15] MEDS: ASCORBIC ACID 500 MG TABLET PO SCH (08:49)
[2019-10-15] MEDS: ASPIRIN 81MG TABLET PO SCH (08:49)
[2019-10-15] MEDS: LIDOCAINE 5% PATCH TOP SCH (08:50)
[2019-10-15] MEDS: FUROSEMIDE 40MG/4ML VIAL IVP SCH (08:51)
[2019-10-15 20:00] VITALS: BP 109/59
[2019-10-15] MEDS: FAMOTIDINE 20MG TABLET PO SCH (21:28)
[2019-10-15] MEDS: TEMAZEPAM 15MG CAPSULE PO PRN (21:29)
[2019-10-16] MEDS: DILTIAZEM HCL 90MG TABLET PO SCH ×4 (06:07→17:44)
[2019-10-16] MEDS: ENOXAPARIN 30MG/0.3ML SYR SUBCUT SCH ×2 (06:08→17:46)
[2019-10-16] MEDS: INSULIN LISPRO 100 UNITS/ML SUBCUT SCH ×4 (06:08→21:00)
[2019-10-16] MEDS: BLOOD SUGAR DIAGNOSTIC STRIP TEST SCH ×4 (06:08→21:37)
[2019-10-16 07:49] VITALS: BP 126/67
[2019-10-16 07:50] LABS: BASOPHILS % 1.2 % (0.0-2.0); EOSINOPHILS % 4.6 % (0.0-5.0); HEMATOCRIT. 30.1 % (42.0-52.0); HEMOGLOBIN. 9.8 g/dL (14.0-18.0); LYMPHOCYTES % 25.6 % (20.0-50.0); MEAN CORPUSCULAR HEMOGLOBIN 28.5 pg (28.0-32.0); MEAN CORPUSCULAR VOLUME 87.7 fL (80.0-94.0); MEAN PLATELET VOLUME 7.7 fl (7.4-10.4); MONOCYTES % 12.5 % (2.0-8.0); NEUTROPHILS % 56.1 % (40.0-76.0); PLATELET 410 x1000/uL (130-400); RED BLOOD CELL COUNT 3.43 mill/uL (4.7-6.1); RED CELL DISTRIBUTION WIDTH 15.8 % (11.6-14.6)
[2019-10-16 08:23] LABS: CHLORIDE 111 mEq/L (98-107)
[2019-10-16 08:34] LABS: PHOSPHORUS 3.7 mg/dL (2.5-4.9)
[2019-10-16] MEDS: LIDOCAINE 5% PATCH TOP SCH (08:40)
[2019-10-16] MEDS: ACETAMINOPHEN 650MG/20.3ML UDC PO PRN (08:40)
[2019-10-16] MEDS: FUROSEMIDE 40MG/4ML VIAL IVP SCH (08:40)
[2019-10-16] MEDS: AMIODARONE HCL 200 MG TABLET PO SCH ×2 (08:42→17:44)
[2019-10-16] MEDS: ASPIRIN 81MG TABLET PO SCH (08:42)
[2019-10-16] MEDS: ASCORBIC ACID 500 MG TABLET PO SCH (08:42)
[2019-10-16] MEDS: LOSARTAN POTASSIUM 100 MG TABLET PO SCH (08:43)
[2019-10-16] MEDS: ZINC SULFATE 220 MG ( 50 ) CAPSULE PO SCH (08:44)
[2019-10-16] MEDS: POTASSIUM CHLORIDE 20MEQ TABLET SR PO SCH ×2 (08:44→17:45)
[2019-10-16] MEDS: LORATADINE 10MG TABLET PO PRN (14:46)
[2019-10-16 20:00] VITALS: BP 106/65
[2019-10-16] MEDS ORDERED: BUPIVACAINE HCL 0.25% (2.5MG/ML) 50ML IR NR (21:00)
[2019-10-16] MEDS ORDERED: TRIAMCINOLONE ACETONIDE 40MG/ML 1ML VIAL IM NR (21:00)
[2019-10-16] MEDS ORDERED: LIDOCAINE HCL 1% 20ML VIAL (Pyxis) INJ INFIL NR (21:00)
[2019-10-16] MEDS ORDERED: ETHYL CHLORIDE CAN TOP NR (21:00)
[2019-10-16] MEDS: TEMAZEPAM 15MG CAPSULE PO PRN ×2 (21:37→21:39)
[2019-10-16] MEDS: FAMOTIDINE 20MG TABLET PO SCH (21:37)
[2019-10-17] MEDS ORDERED: ETHYL CHLORIDE CAN TOP NR ×3 (06:00→20:30)
[2019-10-17] MEDS: DILTIAZEM HCL 90MG TABLET PO SCH ×2 (06:11)
[2019-10-17] MEDS: BLOOD SUGAR DIAGNOSTIC STRIP TEST SCH ×4 (06:12→21:41)
[2019-10-17] MEDS: ENOXAPARIN 30MG/0.3ML SYR SUBCUT SCH ×2 (06:12→17:14)
[2019-10-17] MEDS: INSULIN LISPRO 100 UNITS/ML SUBCUT SCH ×4 (06:12→21:56)
[2019-10-17] MEDS: ACETAMINOPHEN 650MG/20.3ML UDC PO PRN ×2 (07:36→13:56)
[2019-10-17 07:44] VITALS: BP 118/65
[2019-10-17] MEDS: LORATADINE 10MG TABLET PO PRN (07:49)
[2019-10-17] MEDS ORDERED: TRIAMCINOLONE ACETONIDE 40MG/ML 1ML VIAL IM NR ×2 (08:00→20:30)
[2019-10-17] MEDS ORDERED: LIDOCAINE HCL 1% 20ML VIAL (Pyxis) INJ INFIL NR ×2 (08:00→20:30)
[2019-10-17] MEDS ORDERED: BUPIVACAINE HCL 0.25% (2.5MG/ML) 50ML IR NR (08:00)
[2019-10-17] MEDS: POTASSIUM CHLORIDE 20MEQ TABLET SR PO SCH ×2 (08:04→16:26)
[2019-10-17] MEDS: ZINC SULFATE 220 MG ( 50 ) CAPSULE PO SCH (08:04)
[2019-10-17] MEDS: ASCORBIC ACID 500 MG TABLET PO SCH (08:05)
[2019-10-17] MEDS: FUROSEMIDE 40MG TABLET PO SCH (08:05)
[2019-10-17] MEDS: ASPIRIN 81MG TABLET PO SCH (08:05)
[2019-10-17] MEDS: AMIODARONE HCL 200 MG TABLET PO SCH ×2 (08:06→16:26)
[2019-10-17] MEDS: LOSARTAN POTASSIUM 100 MG TABLET PO SCH (08:07)
[2019-10-17] MEDS: LIDOCAINE 5% PATCH TOP SCH (08:08)
[2019-10-17] MEDS ORDERED: BUPIVACAINE HCL/PF 0.25% (2.5MG/ML) 10ML INFIL NR ×2 (08:15→20:30)
[2019-10-17] MEDS: DILTIAZEM HCL 300MG CAPSULE SR 24HR PO SCH (13:03)
[2019-10-17 13:04] VITALS: BP 131/75
[2019-10-17 16:31] VITALS: BP 137/61
[2019-10-17 20:00] VITALS: BP 135/66
[2019-10-17] MEDS: FAMOTIDINE 20MG TABLET PO SCH (21:41)
[2019-10-17] MEDS: TEMAZEPAM 15MG CAPSULE PO PRN (21:41)
[2019-10-18] MEDS: ACETAMINOPHEN 650MG/20.3ML UDC PO PRN ×3 (06:12→14:32)
[2019-10-18] MEDS: INSULIN LISPRO 100 UNITS/ML SUBCUT SCH ×4 (06:13→21:12)
[2019-10-18] MEDS: BLOOD SUGAR DIAGNOSTIC STRIP TEST SCH ×4 (06:13→21:07)
[2019-10-18] MEDS: ENOXAPARIN 30MG/0.3ML SYR SUBCUT SCH ×2 (06:13→17:24)
[2019-10-18 08:07] VITALS: BP 129/70
[2019-10-18] MEDS: LORATADINE 10MG TABLET PO PRN (09:06)
[2019-10-18] MEDS: ZINC SULFATE 220 MG ( 50 ) CAPSULE PO SCH (09:06)
[2019-10-18] MEDS: LIDOCAINE 5% PATCH TOP SCH (09:06)
[2019-10-18] MEDS: ASCORBIC ACID 500 MG TABLET PO SCH (09:06)
[2019-10-18] MEDS: AMIODARONE HCL 200 MG TABLET PO SCH ×2 (09:06→17:24)
[2019-10-18] MEDS: DILTIAZEM HCL 300MG CAPSULE SR 24HR PO SCH (09:06)
[2019-10-18] MEDS: LOSARTAN POTASSIUM 100 MG TABLET PO SCH (09:06)
[2019-10-18] MEDS: POTASSIUM CHLORIDE 20MEQ TABLET SR PO SCH ×2 (09:06→17:24)
[2019-10-18] MEDS: FUROSEMIDE 40MG TABLET PO SCH (09:06)
[2019-10-18] MEDS: ASPIRIN 81MG TABLET PO SCH (09:06)
[2019-10-18 17:25] VITALS: BP 144/67
[2019-10-18 20:00] VITALS: BP 146/67
[2019-10-18] MEDS: FAMOTIDINE 20MG TABLET PO SCH (21:07)
[2019-10-18] MEDS: TEMAZEPAM 15MG CAPSULE PO PRN (21:07)
[2019-10-19] MEDS: BLOOD SUGAR DIAGNOSTIC STRIP TEST SCH ×4 (06:14→21:20)
[2019-10-19] MEDS: ENOXAPARIN 30MG/0.3ML SYR SUBCUT SCH ×2 (06:15→17:18)
[2019-10-19] MEDS: INSULIN LISPRO 100 UNITS/ML SUBCUT SCH ×4 (06:29→22:28)
[2019-10-19] MEDS: ACETAMINOPHEN 650MG/20.3ML UDC PO PRN (06:55)
[2019-10-19 07:33] LABS: BASOPHILS % 0.3 % (0.0-2.0); HEMATOCRIT. 31.3 % (42.0-52.0); HEMOGLOBIN. 10.4 g/dL (14.0-18.0); LYMPHOCYTES % 8.3 % (20.0-50.0); MEAN CORPUSCULAR HEMOGLOBIN 28.8 pg (28.0-32.0); MEAN CORPUSCULAR VOLUME 87.1 fL (80.0-94.0); MEAN PLATELET VOLUME 7.5 fl (7.4-10.4); MONOCYTES % 1.6 % (2.0-8.0); NEUTROPHILS % 89.8 % (40.0-76.0); PLATELET 417 x1000/uL (130-400); RED CELL DISTRIBUTION WIDTH 16.3 % (11.6-14.6)
[2019-10-19 08:00] VITALS: BP 142/71
[2019-10-19] MEDS: LOSARTAN POTASSIUM 100 MG TABLET PO SCH (08:24)
[2019-10-19] MEDS: FUROSEMIDE 40MG TABLET PO SCH (08:24)
[2019-10-19] MEDS: DILTIAZEM HCL 300MG CAPSULE SR 24HR PO SCH (08:24)
[2019-10-19] MEDS: AMIODARONE HCL 200 MG TABLET PO SCH ×2 (08:25→16:06)
[2019-10-19] MEDS: ASPIRIN 81MG TABLET PO SCH (08:25)
[2019-10-19] MEDS: ASCORBIC ACID 500 MG TABLET PO SCH (08:25)
[2019-10-19] MEDS: POTASSIUM CHLORIDE 20MEQ TABLET SR PO SCH ×2 (08:26→16:07)
[2019-10-19] MEDS: ZINC SULFATE 220 MG ( 50 ) CAPSULE PO SCH (08:26)
[2019-10-19] MEDS: LIDOCAINE 5% PATCH TOP SCH (09:27)
[2019-10-19] MEDS: LORATADINE 10MG TABLET PO PRN (16:07)
[2019-10-19 20:00] VITALS: BP 152/69
[2019-10-19] MEDS: FAMOTIDINE 20MG TABLET PO SCH (21:20)
[2019-10-19] MEDS: TEMAZEPAM 15MG CAPSULE PO PRN (21:20)
[2019-10-20] MEDS: BLOOD SUGAR DIAGNOSTIC STRIP TEST SCH ×2 (06:06→11:15)
[2019-10-20] MEDS: ENOXAPARIN 30MG/0.3ML SYR SUBCUT SCH (06:07)
[2019-10-20] MEDS: INSULIN LISPRO 100 UNITS/ML SUBCUT SCH ×2 (06:15→11:39)
[2019-10-20 07:30] VITALS: BP 123/63
[2019-10-20] MEDS: AMIODARONE HCL 200 MG TABLET PO SCH (08:27)
[2019-10-20] MEDS: ZINC SULFATE 220 MG ( 50 ) CAPSULE PO SCH (08:27)
[2019-10-20] MEDS: ASCORBIC ACID 500 MG TABLET PO SCH (08:28)
[2019-10-20] MEDS: ASPIRIN 81MG TABLET PO SCH (08:28)
[2019-10-20] MEDS: POTASSIUM CHLORIDE 20MEQ TABLET SR PO SCH (08:28)
[2019-10-20] MEDS: FUROSEMIDE 40MG TABLET PO SCH (08:28)
[2019-10-20] MEDS: LOSARTAN POTASSIUM 100 MG TABLET PO SCH (08:29)
[2019-10-20] MEDS: LIDOCAINE 5% PATCH TOP SCH (08:29)
[2019-10-20] MEDS ORDERED: DILTIAZEM HCL 180MG CAPSULE CD 24HR PO SCH (09:00)
[2019-10-20 12:00] VITALS: BP 122/62
[2019-10-20 12:07] VITALS: BP 122/62
[2019-10-20] MEDS: ACETAMINOPHEN 650MG/20.3ML UDC PO PRN (13:17)
== END 2019-10-20 15:30 | disposition home health service (06) | DRG 91 ==
PROVIDERS: ADMIT Physical Medicine & Rehabilitation Spinal Cord Injury Medicine; ATTEND Internal Medicine
DX: G92 Toxic encephalopathy (principal); J18.9 Pneumonia, unspecified organism; J96.00 Acute respiratory failure, unspecified whether with hypoxia or hypercapnia; I50.33 Acute on chronic diastolic (congestive) heart failure; A41.9 Sepsis, unspecified organism; I48.92 Unspecified atrial flutter; N17.9 Acute kidney failure, unspecified; J44.0 Chronic obstructive pulmonary disease with (acute) lower respiratory infection; N39.0 Urinary tract infection, site not specified; E11.9 Type 2 diabetes mellitus without complications; E66.01 Morbid (severe) obesity due to excess calories; G89.4 Chronic pain syndrome; I11.0 Hypertensive heart disease with heart failure; I27.20 Pulmonary hypertension, unspecified; E87.6 Hypokalemia; E83.42 Hypomagnesemia; M48.061 Spinal stenosis, lumbar region without neurogenic claudication; D64.9 Anemia, unspecified; R53.81 Other malaise; R26.9 Unspecified abnormalities of gait and mobility; I48.91 Unspecified atrial fibrillation; M17.12 Unilateral primary osteoarthritis, left knee; Z68.30 Body mass index [BMI] 30.0-30.9, adult; Z93.1 Gastrostomy status; Z93.0 Tracheostomy status; Z88.7 Allergy status to serum and vaccine; Z79.82 Long term (current) use of aspirin; Z79.4 Long term (current) use of insulin; Z79.899 Other long term (current) drug therapy; Z83.3 Family history of diabetes mellitus
CPT/HCPCS: 36415; 73562; 80048; 80061; 82140; 82306; 82607; 82728; 82746; 82962; 83036; 83540; 83550; 83735; 84100; 84134; 84153; 84443; 92508; 92610; 93970; 97110; 97116; 97530; 97535; A6261; G0515; J1650; J1815; J1885; J1940; J3301; J3490; G0103

== ENCOUNTER 2020-01-28 18:34 | Inpatient (IN) | payer MEDICARE ==
[~2020-01-28] VITALS: Ht 175.3 cm; Wt 107.5 kg
[~2020-01-28 18:34] MED LIST changes: -ALFUZOSIN PO; -AMLO5TAB88 MT; -ASCO500C6 PO; -DIPH1TAB PO; -ECON15CR13 TP; -FURO40TA5 PO; -HYDR-4005 PO; -SIMV5TAB58 PO; -TRAZ-213 PO; +TRAZ-252 PO; -VALS320T2 PO; -VITAMIN E PO
[2020-01-28 20:07] LABS: BASOPHILS % 1.4 % (0.0-2.0); CHLORIDE 106 mEq/L (98-107); EOSINOPHILS % 4.5 % (0.0-5.0); HEMATOCRIT. 37.6 % (42.0-52.0); HEMOGLOBIN. 12.5 g/dL (14.0-18.0); MEAN CORPUSCULAR HEMOGLOBIN 28.8 pg (28.0-32.0); MEAN CORPUSCULAR VOLUME 86.9 fL (80.0-94.0); MEAN PLATELET VOLUME 7.8 fl (7.4-10.4); NEUTROPHILS % 72.1 % (40.0-76.0); PLATELET 347 x1000/uL (130-400); RED BLOOD CELL COUNT 4.33 mill/uL (4.7-6.1); RED CELL DISTRIBUTION WIDTH 14.4 % (11.6-14.6)
[2020-01-28 20:08] LABS: PROTHROMBIN TIME 10.8 sec (9.6-11.0)
[2020-01-28 20:11] LABS: ETHANOL BLOOD < 10 mg/dL
[2020-01-28 21:20] LABS: CLARITY URINE CLEAR (CLEAR); COLOR URINE YELLOW (YELLOW); KETONES URINE NEGATIVE (NEGATIVE); LEUKOCYTE ESTERASE URINE NEGATIVE (NEGATIVE); NITRITE URINE NEGATIVE (NEGATIVE); OCCULT BLOOD URINE NEGATIVE (NEGATIVE); PH URINE 6.5 (4.5-8.0); PROTEIN URINE NEGATIVE (NEGATIVE); UROBILINOGEN URINE 0.2 E.U./dL (0.2-1.0)
[2020-01-28 21:42] LABS: *BARBITURATES SCREEN URINE NEGATIVE (NEGATIVE); CANNABINOID URINE SCREEN NEGATIVE (NEGATIVE)
[2020-01-28 21:43] LABS: *AMPHETAMINES SCREEN URINE NEGATIVE (NEGATIVE); *BENZODIAZEPINES SCREEN URINE NEGATIVE (NEGATIVE); *COCAINE SCREEN URINE NEGATIVE (NEGATIVE); METHADONE URINE SCREEN NEGATIVE (NEGATIVE); OPIATES URINE SCREEN NEGATIVE (NEGATIVE); PHENCYCLIDINE URINE SCREEN NEGATIVE (NEGATIVE)
[2020-01-28] MEDS ORDERED: ACETAMINOPHEN WITH CODEINE 300/30MG TABLET PO ONE (22:45)
[2020-01-29] MEDS ORDERED: SODIUM CHLORIDE 0.9% 1,000 ML IV ONE (00:30)
[2020-01-29] MEDS ORDERED: LORAZEPAM 1MG TABLET PO ONE (02:15)
[2020-01-29] MEDS ORDERED: ONDANSETRON HCL 4MG/2ML INJ IV PRN (03:00)
[2020-01-29] MEDS ORDERED: ACETAMINOPHEN 325MG TABLET PO PRN (03:00)
[2020-01-29] MEDS ORDERED: DEXTROSE 50% WATER 50ML SYRINGE IV PRN (03:15)
[2020-01-29 06:16] LABS: VITAMIN B12 SERUM 655 pg/mL (211-911)
[2020-01-29 08:00] VITALS: BP 168/88
[2020-01-29] MEDS: HEPARIN 5000 UNITS/ML VIAL SUBCUT SCH ×2 (09:16→22:06)
[2020-01-29] MEDS: FINASTERIDE 5MG TABLET PO SCH (09:16)
[2020-01-29] MEDS: CARVEDILOL 12.5MG TABLET PO SCH ×2 (09:17→22:06)
[2020-01-29] MEDS: AMLODIPINE 5MG TABLET PO SCH (09:17)
[2020-01-29 09:31] VITALS: BP 168/88
[2020-01-29] MEDS: VENLAFAXINE HCL 50MG TABLET PO SCH (10:58)
[2020-01-29] MEDS ORDERED: VENLAFAXINE HCL 75MG TABLET PO SCH (11:00)
[2020-01-29 12:00] VITALS: BP 168/84
[2020-01-29] MEDS ORDERED: INFLUENZA VIRUS VACCINE(AFLURIA) 0.5ML SYR IM ONE (12:00)
[2020-01-29] MEDS: BLOOD SUGAR DIAGNOSTIC STRIP TEST SCH ×3 (12:08→21:00)
[2020-01-29] MEDS: INSULIN LISPRO 100 UNITS/ML SUBCUT SCH ×3 (12:08→21:00)
[2020-01-29] MEDS: TRAMADOL 50MG TABLET PO PRN (12:28)
[2020-01-29] MEDS: GABAPENTIN 300MG CAPSULE PO SCH ×2 (13:13→22:05)
[2020-01-29] MEDS: CLONIDINE 0.2MG TABLET PO SCH ×2 (13:13→22:05)
[2020-01-29 16:00] VITALS: BP 145/86
[2020-01-29 16:02] LABS: T4 FREE 1.31 ng/dL (0.76-1.46)
[2020-01-29 16:18] LABS: FOLIC ACID (FOLATE) SERUM > 20.00 ng/mL (>5.38)
[2020-01-29 20:00] VITALS: BP 130/86
[2020-01-29] MEDS: ZOLPIDEM TARTRATE 5MG TABLET PO PRN (22:50)
[2020-01-30] VITALS: BP 107/63
[2020-01-30 04:00] VITALS: BP 139/80
[2020-01-30] MEDS: GABAPENTIN 300MG CAPSULE PO SCH ×3 (06:26→21:01)
[2020-01-30] MEDS: CLONIDINE 0.2MG TABLET PO SCH ×3 (06:27→21:01)
[2020-01-30] MEDS: BLOOD SUGAR DIAGNOSTIC STRIP TEST SCH ×4 (06:27→21:02)
[2020-01-30] MEDS: TRAMADOL 50MG TABLET PO PRN (07:02)
[2020-01-30] MEDS: INSULIN LISPRO 100 UNITS/ML SUBCUT SCH ×4 (07:50→21:00)
[2020-01-30 08:00] VITALS: BP 127/80
[2020-01-30] MEDS: HEPARIN 5000 UNITS/ML VIAL SUBCUT SCH ×2 (08:55→21:03)
[2020-01-30] MEDS: VENLAFAXINE HCL 50MG TABLET PO SCH (08:55)
[2020-01-30] MEDS: FINASTERIDE 5MG TABLET PO SCH (08:55)
[2020-01-30] MEDS: CARVEDILOL 12.5MG TABLET PO SCH ×2 (08:56→21:01)
[2020-01-30] MEDS: AMLODIPINE 5MG TABLET PO SCH (08:57)
[2020-01-30 09:17] LABS: CHLORIDE 107 mEq/L (98-107); HEMATOCRIT. 34.5 % (42.0-52.0); HEMOGLOBIN. 11.3 g/dL (14.0-18.0); MEAN CORPUSCULAR HEMOGLOBIN 28.5 pg (28.0-32.0); MEAN CORPUSCULAR VOLUME 86.8 fL (80.0-94.0); RED BLOOD CELL COUNT 3.97 mill/uL (4.7-6.1); RED CELL DISTRIBUTION WIDTH 14.5 % (11.6-14.6)
[2020-01-30 10:27] LABS: PLATELET 301 x1000/uL (130-400)
[2020-01-30 10:32] LABS: PLATELET ESTIMATE NORMAL
[2020-01-30 12:00] VITALS: BP 133/75
[2020-01-30] MEDS ORDERED: TRAMADOL HCL/ACETAMINOPHEN 37.5/325MG TABLET PO PRN (14:15)
[2020-01-30 16:00] VITALS: BP 123/70
[2020-01-30] MEDS ORDERED: MAGNESIUM HYDROXIDE 400MG/5ML 30ML UDC PO PRN (16:30)
[2020-01-30] MEDS: DOCUSATE SODIUM 250MG CAPSULE PO SCH (16:52)
[2020-01-30 20:00] VITALS: BP 133/76
[2020-01-30] MEDS: SENNOSIDES/DOCUSATE SOD 8.6/50MG TABLET PO SCH (21:10)
[2020-01-30] MEDS: ZOLPIDEM TARTRATE 5MG TABLET PO PRN (21:11)
[2020-01-31] VITALS: BP 131/71
[2020-01-31 04:00] VITALS: BP 133/71
[2020-01-31] MEDS: CLONIDINE 0.2MG TABLET PO SCH ×3 (06:27→21:00)
[2020-01-31] MEDS: GABAPENTIN 300MG CAPSULE PO SCH ×3 (06:27→21:00)
[2020-01-31] MEDS: BLOOD SUGAR DIAGNOSTIC STRIP TEST SCH ×4 (06:27→21:10)
[2020-01-31] MEDS: INSULIN LISPRO 100 UNITS/ML SUBCUT SCH ×4 (07:50→21:00)
[2020-01-31 08:00] VITALS: BP 147/85
[2020-01-31] MEDS: DOCUSATE SODIUM 250MG CAPSULE PO SCH (08:27)
[2020-01-31] MEDS: CARVEDILOL 12.5MG TABLET PO SCH ×2 (08:28→20:59)
[2020-01-31] MEDS: HEPARIN 5000 UNITS/ML VIAL SUBCUT SCH (08:28)
[2020-01-31] MEDS: AMLODIPINE 5MG TABLET PO SCH (08:29)
[2020-01-31] MEDS: FINASTERIDE 5MG TABLET PO SCH (08:29)
[2020-01-31] MEDS: VENLAFAXINE HCL 50MG TABLET PO SCH (08:29)
[2020-01-31 09:11] LABS: BASOPHILS % 0.9 % (0.0-2.0); EOSINOPHILS % 5.7 % (0.0-5.0); HEMATOCRIT. 34.2 % (42.0-52.0); HEMOGLOBIN. 11.3 g/dL (14.0-18.0); LYMPHOCYTES % 29.5 % (20.0-50.0); MEAN CORPUSCULAR HEMOGLOBIN 28.4 pg (28.0-32.0); MEAN CORPUSCULAR VOLUME 85.8 fL (80.0-94.0); MEAN PLATELET VOLUME 7.8 fl (7.4-10.4); MONOCYTES % 12.8 % (2.0-8.0); NEUTROPHILS % 51.1 % (40.0-76.0); PLATELET 302 x1000/uL (130-400); RED BLOOD CELL COUNT 3.99 mill/uL (4.7-6.1); RED CELL DISTRIBUTION WIDTH 14.3 % (11.6-14.6)
[2020-01-31 09:22] LABS: CHLORIDE 105 mEq/L (98-107)
[2020-01-31] MEDS: LACTULOSE 20G/30ML UDC PO SCH ×3 (09:26→17:00)
[2020-01-31 12:00] VITALS: BP_SYST 114; BP_SYST 131; BP_DIAS 69; BP_DIAS 71
[2020-01-31 16:00] VITALS: BP 127/73
[2020-01-31] MEDS ORDERED: IPRATROPIUM/ALBUTEROL 0.5-3(2.5)MG/3ML NEB HHN PRN (17:15)
[2020-01-31 20:00] VITALS: BP 165/73
[2020-01-31] MEDS: ZOLPIDEM TARTRATE 5MG TABLET PO PRN (20:58)
[2020-01-31] MEDS: SENNOSIDES/DOCUSATE SOD 8.6/50MG TABLET PO SCH (20:59)
[2020-02-01 00:30] VITALS: BP 133/66
[2020-02-01 04:00] VITALS: BP 146/74
[2020-02-01] MEDS: GABAPENTIN 300MG CAPSULE PO SCH ×2 (06:16→15:00)
[2020-02-01] MEDS: CLONIDINE 0.2MG TABLET PO SCH (06:16)
[2020-02-01] MEDS: BLOOD SUGAR DIAGNOSTIC STRIP TEST SCH (06:25)
[2020-02-01 06:47] LABS: BASOPHILS % 0.9 % (0.0-2.0); EOSINOPHILS % 5.3 % (0.0-5.0); HEMATOCRIT. 33.9 % (42.0-52.0); HEMOGLOBIN. 11.1 g/dL (14.0-18.0); LYMPHOCYTES % 21.3 % (20.0-50.0); MEAN CORPUSCULAR HEMOGLOBIN 28.2 pg (28.0-32.0); MEAN CORPUSCULAR VOLUME 85.8 fL (80.0-94.0); MONOCYTES % 12.6 % (2.0-8.0); NEUTROPHILS % 59.9 % (40.0-76.0); PLATELET 318 x1000/uL (130-400); RED BLOOD CELL COUNT 3.95 mill/uL (4.7-6.1); RED CELL DISTRIBUTION WIDTH 14.3 % (11.6-14.6)
[2020-02-01 07:00] LABS: CHLORIDE 109 mEq/L (98-107)
[2020-02-01 08:00] VITALS: BP 124/82
[2020-02-01 12:00] VITALS: BP 134/77
[2020-02-01 14:46] VITALS: BP 134/77
[2020-02-01] MEDS: DOCUSATE SODIUM 250MG CAPSULE PO SCH (14:54)
[2020-02-01] MEDS: AMLODIPINE 5MG TABLET PO SCH (14:56)
[2020-02-01] MEDS: CARVEDILOL 12.5MG TABLET PO SCH (14:59)
[2020-02-01] MEDS: VENLAFAXINE HCL 50MG TABLET PO SCH (15:02)
[2020-02-01 15:04] VITALS: BP 124/88
[2020-02-01] MEDS: TRAMADOL 50MG TABLET PO PRN (15:04)
== END 2020-02-01 15:38 | DRG 551 ==
LOC: ER 18:34 → 6EST 01-29 00:06 → EDBEDREQ 01-29 00:10 → EDBEDREQDT 01-29 00:10 → EDBEDREQTM 01-29 00:10 → ENRESERV 01-29 07:16
PROVIDERS: ADMIT Internal Medicine; ATTEND Internal Medicine
DX: M47.12 Other spondylosis with myelopathy, cervical region (principal); G82.50 Quadriplegia, unspecified; I13.0 Hypertensive heart and chronic kidney disease with heart failure and stage 1 through stage 4 chronic kidney disease, or unspecified chronic kidney disease; I50.32 Chronic diastolic (congestive) heart failure; M51.04 Intervertebral disc disorders with myelopathy, thoracic region; D64.9 Anemia, unspecified; E11.22 Type 2 diabetes mellitus with diabetic chronic kidney disease; E83.41 Hypermagnesemia; E83.42 Hypomagnesemia; I27.21 Secondary pulmonary arterial hypertension; M17.10 Unilateral primary osteoarthritis, unspecified knee; M48.02 Spinal stenosis, cervical region; M48.061 Spinal stenosis, lumbar region without neurogenic claudication; Z87.440 Personal history of urinary (tract) infections
CPT/HCPCS: 36415; 70551; 71045; 72141; 72146; 72148; 80053; 80061; 80305; 80320; 81003; 82550; 82607; 82746; 82962; 83036; 83605; 83735; 83880; 84439; 84443; 84481; 84484; 85025; 90686; 93005; 93306; 97162; 97166; 97530; 97535; 99285; J1644; J1815; J7030; G0480